=== PATIENT | male | born 1930 | race Caucasian/White ===

== ENCOUNTER 2017-07-30 23:25 | Inpatient (IN) | payer MEDICAID, OTHER ==
--- NOTE | 2017-07-30 23:53 | ED PDOC ---
Arrival/HPI - General Time Seen by Provider: 07/30/17 23:30 Historian: Patient - History of Present Illness Narrative History of Present Illness (Text): 07/30/17 23:37 An 87 year old male, whose past medical history includes dementia, recent hip fracture, renal insufficiency, is brought into the emergency department via EMS with complaint of chest pain intermittently throughout the day, becoming briefly unresponsive this evening.Pt. is on Lovenox. The ambulance was called and transported patient to emergency room. Patient was seen immediately upon arrival. ROS/ HPI limited due to acuity of patient's condition. Time/Duration: Prior to Arrival Symptom Onset: Sudden Symptom Course: Unchanged Activities at Onset: Rest, Light Context: Home Past Medical History - Provider Review Nursing Documentation Reviewed: Yes - Infectious Disease Hx of Infectious Diseases: None Family/Social History - Physician Review Nursing Documentation Reviewed: Yes Family/Social History: No Known Family HX Allergies/Home Meds Allergies/Adverse Reactions: Allergies No Known Allergies Allergy (Verified 07/30/17 23:30) Home Medications: Home Meds Medication Instructions Recorded Confirmed B Complex W-C No.20/Folic Acid 1 cap PO DAILY 07/30/17 07/30/17 [Nephrocaps Softgel] Enoxaparin [Lovenox] 30 mg SC DAILY 07/30/17 07/30/17 Ergocalciferol [Drisdol 50,000 1.25 mg PO QWK 07/30/17 07/30/17 Intl Units Cap] Sodium Bicarbonate [Sodium 325 mg PO BID 07/30/17 07/30/17 Bicarbonate] amLODIPine [Norvasc] 5 mg PO DAILY 07/30/17 07/30/17 Review of Systems - Physician Review All systems were reviewed & negative as marked: Yes - Review of Systems Systems not reviewed;Unavailable: Acuity of Condition Cardiovascular: Chest Pain Physical Exam Vital Signs Reviewed: Yes Vital Signs Temp Pulse Resp BP Pulse Ox 07/31/17 02:37 94.5 F L 98 H 12 107/43 L 100 07/31/17 01:52 105 H 12 92/48 L 100 07/31/17 00:44 91 H 20 107/47 L 99 07/31/17 00:00 99 H 20 102/59 L 100 07/30/17 23:52 94 H 20 89/33 L 97 07/30/17 23:44 96 H 18 90/42 L 93 L 07/30/17 23:34 91.7 F L 98 H 18 162/94 H 94 L Temperature: Hypothermic Blood Pressure: Hypertensive Pulse: Tachycardic Respiratory Rate: Normal Pain Distress: None Mental Status: Positive for: other (Patient is somnolent, but arousable. ) - Systems Exam Head: Present: Atraumatic, Normocephalic Pupils: Present: PERRL Extroacular Muscles: Present: EOMI Conjunctiva: Present: Normal Ears: Present: NORMAL TM Mouth: Present: Dry Pharnyx: Present: Normal Neck: Present: Normal Range of Motion Respiratory/Chest: Present: Rhonchi (Rhonchi bilaterally. ) Cardiovascular: Present: Irregular Rhythm (Irregularly irregular. ) Abdomen: No: Tenderness, Distention, Peritoneal Signs Back: Present: Normal Inspection Upper Extremity: Present: Normal Inspection. No: Cyanosis, Edema Lower Extremity: Present: Normal Inspection. No: Edema Neurological: Present: GCS=15, CN II-XII Intact, Speech Normal, Motor Func Grossly Intact, Normal Sensory Function Skin: Present: Warm, Dry, Normal Color. No: Rashes Psychiatric: Present: Lethargic Medical Decision Making ED Course and Treatment: 07/30/17 23:56 Impression: An 87 year old male is brought into the emergency department via EMS for complaint of intermittent chest pain today and becoming unresponsive this evening. Plan: -- EKG -- Head CT -- Chest X-ray -- Labs -- Urine/ Blood Culture -- Urinalysis -- Lactated Ringer's -- Reassess and disposition Progress Notes: EKG: Ordered, reviewed, and independently interpreted the EKG. Rate : 98 BPM Rhythm : Atrial Fibrillation Interpretation : Lateral ST-T changes. XR Chest, 1 View Dictated and Authenticated by: Chauncey Duran MD 07/31/2017 12:00 AM Eastern Time ([place] & [place]) IMPRESSION: 1. Probable mild pulmonary vascular congestion. Clinical correlation is needed. 07/31/17 01:34: Called to bedside. Patient became bradypneic and pulseless. CPR started. Patient was intubated by myself emergently. A single does epinephrine was administered with resumption of heart rate pulse instantaneously. Patient was sedated as he became agitated. Vital signs stable. PROCEDURE: INTUBATION Performed by the emergency provider Time: 1:29 AM Consent: Discussion of the risks, benefits, and alternatives to the procedure, along with informed consent was precluded by the urgency of the procedure and the patient condition. Timeout: A timeout to verify the correct patient, procedure, and site was performed. Indication: Cardiopulmonary Arrest. Pre-oxygenation: [id number] Medications: See MAR for details. ETT Size: 8.0 Confirmation: Cords directly visualized as tube passed, good bilateral breath sounds, positive CO2 detector color change, tube fogging, adequate chest rise, improving pulse oximetry reading, improved skin color, and absence of gastric sounds,. ETT Secured: The cuff was inflated and the tube was secured appropriately at a distance of 22 cm at the lip. Post-Procedure: There were no immediate complications. CXR Confirmation: Yes 07/31/17 01:53: Case discussed with Dr. Guzman. Will admit patient to ICU. 07/31/17 02:30: Chest X-ray read and interpreted by me shows ETT tube above the ethel. Increased pulmonary markings and ? right lower lobe infiltrate. CT Head Without Intravenous Contrast Dictated and Authenticated by: Chauncey Duran MD 07/31/2017 3:39 AM Eastern Time ([place] & [place]) IMPRESSION: 1. 1.7 x 2.5 x 2.7 cm hemorrhage or hyperdense mass at level of third ventricle. Recommend MRI. 2. Nonspecific white matter changes. Acute infarction may be CT occult within first 24 hours. If a focal deficit persists, consider followup CT or MRI for further evaluation. 3. Incidental/non-acute findings are described above. 07/31/17 04:03: Original CT results were erroneous. Call from [facility] about a change in CT reading. This was conveyed to the bakery products checker, Dr. Guzman. Patient is currently in ICU. - Lab Interpretations Lab Results: 07/30/17 23:30 07/30/17 23:30 Lab Results 07/31/17 01:08: pCO2 44, pO2 269.0 H, HCO3 21.6, ABG pH 7.30 L, ABG Total CO2 23.0, ABG O2 Saturation 100.2 H, ABG O2 Content 10.9 L, ABG Base Excess -4.5 L, ABG Hemoglobin 7.5 L, ABG Carboxyhemoglobin 2.9 H, POC ABG HHb (Measured) -0.2 L , ABG Methemoglobin 0.4, ABG O2 Capacity 10.9 L, Hgb O2 Saturation 96.9, FiO2 100.0 07/30/17 23:30: Sodium 137, Chloride 105, Potassium 4.4, Carbon Dioxide 21, Anion Gap 15, BUN 46 H, Creatinine 2.8 H, Est GFR ( Amer) 26, Est GFR ( Non-Af Amer) 21, Random Glucose 230 H, Calcium 8.5, Phosphorus 4.9 H, Magnesium 2.1, Total Bilirubin 0.4, AST 40, ALT 39, Alkaline Phosphatase 251 H, Lactate Dehydrogenase 701 H, Total Creatine Kinase 78, Troponin I 0.04, NT-Pro-B Natriuret Pep 1570 H, Total Protein 6.2, Albumin 3.2, Globulin 3.0, Albumin/ Globulin Ratio 1.0 L 07/30/17 23:30: pO2 41, VBG pH 7.21 L, VBG pCO2 55.0, VBG HCO3 22.0, VBG Total CO2 23.7, VBG O2 Sat (Calc) 79.7 H, VBG Base Excess -6.4 L, VBG Potassium 4.5, Sodium 136.0, Chloride 107.0, Glucose 243 H, Lactate 1.8, FiO2 21.0, Venous Blood Potassium 4.5 07/30/17 23:30: PT 12.4, INR 1.09 H, APTT 37.2 H 07/30/17 23:30: WBC 7.5, RBC 3.32 L, Hgb 8.7 L, Hct 28.0 L, MCV 84.3, MCH 26.2, MCHC 31.1, RDW 18.7 H, Plt Count 351, MPV 10.0, Gran % 60.3, Lymph % (Auto) 29.4 , [place] % (Auto) 9.4 H, Eos % (Auto) 0.8 L, Baso % (Auto) 0.1, Gran # 4.50, Lymph # (Auto) 2.2, [place] # (Auto) 0.7 H, Eos # (Auto) 0.1, Baso # (Auto) 0.01 I have reviewed the lab results: Yes - RAD Interpretation Radiology Orders: 07/30/17 23:42 CHEST PORTABLE [RAD] Stat 07/30/17 23:43 HEAD W/O CONTRAST [CT] Stat 07/31/17 01:39 CHEST PORTABLE [RAD] Stat - EKG Interpretation Interpreted by ED Physician: Yes Type: 12 lead EKG - Medication Orders Current Medication Orders: Acetaminophen (Tylenol 325mg Tab) 650 mg PO Q4 PRN PRN Reason: Fever >100.4 F Albuterol/Ipratropium (Duoneb 3 Mg/0.5 Mg (3 Ml) Ud) 3 ml IH [id number] JAIMIE NOREPINEPHRINE BIT/0.9 % NACL (Levophed 4 Mg/ 250 Ml Ns Premixed) 4 mg in 250 mls @ 15 mls/hr IV .[id number] PRN; Protocol; 4 MCG/MIN PRN Reason: TITRATE PER MD ORDER Last Admin: 07/31/17 02:04 Dose: 15 mls/hr eMAR Start Stop Document 07/31/17 02:04 AD (Rec: 07/31/17 02:05 AD [id number]) Intravenous Solution Start Date 07/31/17 Start Time 02:05 Propofol (Diprivan) 1,000 mg in 100 mls @ 2.381 mls/hr IV .Q24H PRN; Protocol; 5 MCG/KG/MIN PRN Reason: TITRATE PER MD ORDER Piperacillin Sod/Tazobactam Sod (Zosyn 2.25 Gm In 0.9% 100 Ml) 2.25 gm in 100 mls @ 100 mls/hr IVPB Q6 JAIMIE PRN Reason: Protocol Stop: 07/31/17 06:59 Vancomycin HCl (Vancomycin 1gm) 1 gm in 250 mls @ 167 mls/hr IVPB DAILY JAIMIE PRN Reason: Protocol Sodium Chloride (Sodium Chloride 0.9%) 1,000 mls @ 60 mls/hr IV .[id number] JAIMIE Insulin Human Lispro (Humalog Low) 0 units SC Q6H JAIMIE PRN Reason: Protocol Pantoprazole Sodium (Protonix Inj) 40 mg IVP DAILY JAIMIE Discontinued Medications Lactated Ringer's 2,380 ml/ IV (SUPPLIES) 2,380 mls @ 4,762.74 mls/hr IV ONCE ONE PRN Reason: 60 ML/KG/HR Stop: 07/30/17 23:52 Last Admin: 07/31/17 00:02 Dose: 4,762.74 mls/hr eMAR Start Stop Document 07/31/17 00:02 AD (Rec: 07/31/17 00:02 AD [id number]) Intravenous Solution Start Date 07/31/17 Start Time 00:02 Ceftriaxone Sodium (Rocephin 1 Gram Ivpb) 1 gm in 100 mls @ 200 mls/hr IV ONCE STA PRN Reason: Protocol Stop: 07/31/17 02:16 Last Admin: 07/31/17 02:12 Dose: 200 mls/hr eMAR Start Stop Document 07/31/17 02:12 AD (Rec: 07/31/17 02:12 AD [id number]) Intravenous Solution Start Date 07/31/17 Start Time 02:12 Azithromycin (Zithromax 500mg In Ns) 500 mg in 250 mls @ 166.667 mls/hr IV STAT STA PRN Reason: Protocol Stop: 07/31/17 03:16 - Scribe Statement The provider has reviewed the documentation as recorded by the Jessica Orr Provider Scribe Attestation: All medical record entries made by the Scribe were at my direction and personally dictated by me. I have reviewed the chart and agree that the record accurately reflects my personal performance of the history, physical exam, medical decision making, and the department course for this patient. I have also personally directed, reviewed, and agree with the discharge instructions and disposition. Disposition/Present on Arrival - Present on Arrival Any Indicators Present on Arrival: No History of DVT/PE: No History of Uncontrolled Diabetes: No Urinary Catheter: No History of Decub. Ulcer: No History Surgical Site Infection Following: None - Disposition Have Diagnosis and Disposition been Completed?: Yes Diagnosis: Chest pain, Hypothermia, Sepsis, Hypotension Disposition: HOSPITALIZED Disposition Time: 01:45 Patient Plan: Admission Patient Problems: Current Active Problems Problem Status Onset Chest pain Acute Hypotension Acute Hypothermia Acute Sepsis Acute Condition: GUARDED
--- NOTE | 2017-07-31 | RAD ---
EXAM: XR Chest, 1 View CLINICAL HISTORY: 87 years old, male; Signs and symptoms; Shortness of breath; Additional info: Sepsis patient TECHNIQUE: Frontal view of the chest. COMPARISON: No relevant prior studies available. FINDINGS: Limitations: Rotation - mild. Radiographic technique - mild. Lungs: Hazy reticular interstitial opacities. No consolidation. Pleural space: Small bilateral pleural effusions. No pneumothorax. Heart: Borderline cardiomegaly. Mediastinum: Prominence of central pulmonary vasculature. Bones/joints: No acute fracture. Tubes, lines and devices: Leads overlying chest. IMPRESSION: 1. Probable mild pulmonary vascular congestion. Clinical correlation is needed.
[2017-07-31 00:10] LABS: BASO # 0.01 K/mm3 (0.0-2.0); BASO % 0.1 % (0.0-3.0); EOS # 0.1 (0.0-0.7); EOS % 0.8 % (1.5-5.0); GRAN # 4.5 (1.4-6.5); GRAN % 60.3 % (50.0-68.0); HEMOGLOBIN 8.7 g/dL (14.0-18.0); LYMPH # 2.2 (1.2-3.4); LYMPH % 29.4 % (22.0-35.0); MEAN CELL VOLUME 84.3 fl (80.0-105.0); MEAN CORPUSCULAR HEMOGLOBIN 26.2 pg (25.0-35.0); MEAN CORPUSCULAR HGB CONC 31.1 g/dl (31.0-37.0); MONO # 0.7 (0.1-0.6); MONO % 9.4 % (1.0-6.0); RBC 3.32 10^6/uL (3.5-6.1); RED CELL DISTRIBUTION WIDTH 18.7 % (11.5-14.5); WHITE BLOOD COUNT 7.5 10^3/ul (4.5-11.0)
[2017-07-31 00:24] LABS: INR 1.09 (0.93-1.08); PARTIAL THROMBOPLASTIN TIME 37.2 Seconds (25.1-36.5); PROTHROMBIN TIME 12.4 SECONDS (9.4-12.5)
[2017-07-31 00:26] LABS: VENOUS BLOOD GAS BASE EXCESS -6.4 mmol/L (0.0-2.0); VENOUS BLOOD GAS PO2 41 mm/Hg (30-55); VENOUS BLOOD PH 7.21 (7.32-7.43)
[2017-07-31 00:36] LABS: ALBUMIN 3.2 g/dL (3.0-4.8); CALCIUM 8.5 mg/dL (8.4-10.5)
[2017-07-31 00:46] LABS: TROPONIN I 0.04 ng/mL
[2017-07-31 01:11] LABS: ARTERIAL BLOOD GAS HCO3 21.6 mmol/L (21-28); ARTERIAL BLOOD GAS HEMOGLOBIN 7.5 g/dL (11.7-17.4); ARTERIAL BLOOD GAS O2 CAPACITY 10.9 mL/dl (16-24); ARTERIAL BLOOD GAS O2 CONTENT 10.9 ML/dl (15-23); ARTERIAL BLOOD GAS O2 SAT 100.2 % (95-98); ARTERIAL BLOOD GAS PCO2 44 mm/Hg (35-45)
[2017-07-31] MEDS ORDERED: Propofol 10 mg/ml 1,000 MG/100 ML VIAL ONE (01:32)
[2017-07-31] MEDS ORDERED: cefTRIAXone 1 gm 1 GM/100 ML BAG IV STA (01:47)
--- NOTE | 2017-07-31 01:50 | CP.PCM.CON ---
History of Present Illness - History of Present Illness History of Present Illness: Please note history is limited and from family at bedside 87yo male PMHx HTN, Kidney disease? ORIF 3 weeks ago, dementia brought in by EMS after an episode of unresponsiveness and cardiac arrest. Patient was complaining of chest pain intermittently and around 10:30pm patient began to feel short of breath and "passed out." As per family, he "dropped to the floor" but they are unsure if he hit his head. They denied noticing any bowel/bladder incontinence, tremulousness, and biting of the tongue. When family called 911 they were told to start chest compressions which they did. When EMS arrived, as per family, patient was arousable and transported to [facility] ED. In the ER patient became bradypneic and pulseless. CPR started and patient was given 1 dose of epi and ROSC was achieved. Patient was then intubated and placed on the vent and sedated. Of note patient had a recent fall 1 month ago and fractured his R hip for which he was admitted to [facility] and had and ORIF. Patient was on 30mg lovenox at home. As per family, at baseline patient is oriented with periods of confusion- especially at night. Since discharge from [facility] he was unable to move and had to be carried everywhere. During patient's stay at [facility] he was noted to have worsening kidney function but dialysis was advised against due to patient's age and comorbidities. PMD: None PMHx: HTN, kidney dz? 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[place]; moved to [place] from [place] 3 years ago ROS: unobtainable secondary to patient condition Review of Systems - Review of Systems Systems not reviewed;Unavailable: Intubated Past Patient History - Infectious Disease Hx of Infectious Diseases: None - Past Social History Smoking Status: Never Smoked - CARDIAC Hx Cardiac Disorders: Yes Hx Hypertension: Yes (takes Norvasc) - PULMONARY Hx Respiratory Disorders: No - NEUROLOGICAL Hx Neurological Disorder: Yes Hx Dementia: Yes - HEENT Hx HEENT Problems: No - RENAL Hx Chronic Kidney Disease: Yes Other/Comment: kidney disease - ENDOCRINE/METABOLIC Hx Endocrine Disorders: No - HEMATOLOGICAL/ONCOLOGICAL Hx Blood Disorders: No - INTEGUMENTARY Hx Dermatological Problems: No - MUSCULOSKELETAL/RHEUMATOLOGICAL Hx Musculoskeletal Disorders: No - GASTROINTESTINAL Hx Gastrointestinal Disorders: No - GENITOURINARY/GYNECOLOGICAL Hx Genitourinary Disorders: No - PSYCHIATRIC Hx Psychophysiologic Disorder: No Hx Substance Use: No - SURGICAL HISTORY Hx Surgeries: Yes Hx Open Reduction Internal Fixation: Yes (rt hip) - ANESTHESIA Hx Anesthesia: Yes Hx Anesthesia Reactions: No Hx Malignant Hyperthermia: No Meds Allergies/Adverse Reactions: Allergies Allergy/AdvReac Type Severity Reaction Status Date / Time No Known Allergies Allergy Verified 07/30/17 23:30 - Medications Medications: Current Medications Ceftriaxone Sodium (Rocephin 1 Gram Ivpb) 1 gm in 100 mls @ 200 mls/hr IV ONCE STA PRN Reason: Protocol Stop: 07/31/17 02:16 Azithromycin (Zithromax 500mg In Ns) 500 mg in 250 mls @ 166.667 mls/hr IV STAT STA PRN Reason: Protocol Stop: 07/31/17 03:16 Physical Exam - Constitutional Appears: Chronically Ill - Head Exam Head Exam: ATRAUMATIC, NORMAL INSPECTION, NORMOCEPHALIC - Eye Exam Eye Exam: PERRL. absent: Conjunctival injection, Scleral icterus - ENT Exam ENT Exam: Mucous Membranes Moist Additional comments: ET tube in place - Neck Exam Neck exam: Negative for: Lymphadenopathy - Respiratory Exam Respiratory Exam: Rales (b/l), Rhonchi (b/l), Respiratory Distress (intubated on vent (100, 5, 12, 500)). absent: Accessory Muscle Use, Clear to Auscultation Bilateral, Wheezes - Cardiovascular Exam Cardiovascular Exam: Tachycardia, Irregular Rhythm, +S1, +S2. absent: Systolic Murmur - GI/Abdominal Exam GI & Abdominal Exam: Normal Bowel Sounds, Soft. absent: Distended, Firm - Rectal Exam Rectal Exam: Deferred - Extremities Exam Extremities exam: Positive for: normal capillary refill, pedal edema (+1 on left and +2 on right), pedal pulses present - Neurological Exam Additional comments: sedated on diprivan - Skin Skin Exam: Dry, Intact Results - Vital Signs Recent Vital Signs: Last Vital Signs Temp 91.7 F L 07/30/17 23:34 Pulse 91 H 07/31/17 00:44 Resp 20 07/31/17 00:44 BP 107/47 L 07/31/17 00:44 Pulse Ox 99 07/31/17 00:44 - Labs Result Diagrams: 07/30/17 23:30 07/30/17 23:30 Labs: Laboratory Results - last 24 hr 07/30/17 07/30/17 07/30/17 23:30 23:30 23:30 WBC 7.5 RBC 3.32 L Hgb 8.7 L Hct 28.0 L MCV 84.3 MCH 26.2 MCHC 31.1 RDW 18.7 H Plt Count 351 MPV 10.0 Gran % 60.3 Lymph % (Auto) 29.4 [place] % (Auto) 9.4 H Eos % (Auto) 0.8 L Baso % (Auto) 0.1 Gran # 4.50 Lymph # (Auto) 2.2 [place] # (Auto) 0.7 H Eos # (Auto) 0.1 Baso # (Auto) 0.01 PT 12.4 INR 1.09 H APTT 37.2 H pCO2 pO2 41 HCO3 ABG pH ABG Total CO2 ABG O2 Saturation ABG O2 Content ABG Base Excess ABG Hemoglobin ABG Carboxyhemoglobin POC ABG HHb (Measured) ABG Methemoglobin ABG O2 Capacity VBG pH 7.21 L VBG pCO2 55.0 VBG HCO3 22.0 VBG Total CO2 23.7 VBG O2 Sat (Calc) 79.7 H VBG Base Excess -6.4 L VBG Potassium 4.5 Hgb O2 Saturation Sodium 136.0 Chloride 107.0 Glucose 243 H Lactate 1.8 FiO2 21.0 Potassium Carbon Dioxide Anion Gap BUN Creatinine Est GFR ( Amer) Est GFR (Non-Af Amer) Random Glucose Calcium Phosphorus Magnesium Total Bilirubin AST ALT Alkaline Phosphatase Lactate Dehydrogenase Total Creatine Kinase Troponin I NT-Pro-B Natriuret Pep Total Protein Albumin Globulin Albumin/Globulin Ratio Venous Blood Potassium 4.5 07/30/17 07/31/17 23:30 01:08 WBC RBC Hgb Hct MCV MCH MCHC RDW Plt Count MPV Gran % Lymph % (Auto) [place] % (Auto) Eos % (Auto) Baso % (Auto) Gran # Lymph # (Auto) [place] # (Auto) Eos # (Auto) Baso # (Auto) PT INR APTT pCO2 44 pO2 269.0 H HCO3 21.6 ABG pH 7.30 L ABG Total CO2 23.0 ABG O2 Saturation 100.2 H ABG O2 Content 10.9 L ABG Base Excess -4.5 L ABG Hemoglobin 7.5 L ABG Carboxyhemoglobin 2.9 H POC ABG HHb (Measured) -0.2 L ABG Methemoglobin 0.4 ABG O2 Capacity 10.9 L VBG pH VBG pCO2 VBG HCO3 VBG Total CO2 VBG O2 Sat (Calc) VBG Base Excess VBG Potassium Hgb O2 Saturation 96.9 Sodium 137 Chloride 105 Glucose Lactate FiO2 100.0 Potassium 4.4 Carbon Dioxide 21 Anion Gap 15 BUN 46 H Creatinine 2.8 H Est GFR ( Amer) 26 Est GFR (Non-Af Amer) 21 Random Glucose 230 H Calcium 8.5 Phosphorus 4.9 H Magnesium 2.1 Total Bilirubin 0.4 AST 40 ALT 39 Alkaline Phosphatase 251 H Lactate Dehydrogenase 701 H Total Creatine Kinase 78 Troponin I 0.04 NT-Pro-B Natriuret Pep 1570 H Total Protein 6.2 Albumin 3.2 Globulin 3.0 Albumin/Globulin Ratio 1.0 L Venous Blood Potassium Assessment & Plan - Assessment and Plan (Free Text) Assessment: 87yo male PMHx HTN, Kidney disease? ORIF 3 weeks ago, dementia brought in by EMS after an episode of unresponsiveness s/p cardiac arrest in the ER. Patient admitted to MICU Plan: Neuro -baseline dementia -sedated on propofol gtt -f/u head CT -f/u UDS -HoB above 30 degrees -Aspiration precautions Cardio -s/p cardiac arrest in the field and ED -EKG on admission showed Afib with RVR -f/u trop x 2 -Levophed gtt -maintain MAP > 65mmHg -f/u lipid panel and thyroid studies -f/u Echo -Cardio consulted Pulm -intubated on vent (100, 5, 12, 500) -Duoneb 3ml q6 -f/u AM CXR and ABG -f/u VQ scan -Maintain spO2 above 90% -extensive hx of tobacco abuse GI -no acute issues Nephro -elevated BUN/Cr on admission 46/2.8 -NS @ 60 -f/u renal u/s -monitor electrolytes -Monitor strict Is and Os -Nephro consulted ID -f/u pancultures and procal -coverage for HCAP Vanc and Zosyn -ID consulted Endo -Accucheck -RISS low -f/u HgbA1c -maintain euglycemia GI ppx: Protonix DVT ppx: will start VTE ppx after head CT Diet: NPO Discussed with Dr. Megan Ferreira PGY2
[2017-07-31] MEDS ORDERED: Propofol 10 mg/ml 1,000 MG/100 ML VIAL IV PRN (02:04)
[2017-07-31] MEDS: NOREPINEPHRINE BIT/0.9 % NACL 4 MG/250 ML BAG IV PRN ×2 (02:04→15:40)
[2017-07-31] MEDS: Insulin Lispro (humaLOG) LOW Coverage SC SCH ×4 (03:00→22:00)
[2017-07-31] MEDS ORDERED: Sodium Chloride 0.9% 1,000 ML IV SCH (03:15)
--- NOTE | 2017-07-31 03:36 | CT ---
EXAM: CT Head Without Intravenous Contrast CLINICAL HISTORY: 87 years old, male; Signs and symptoms; Syncope and collapse TECHNIQUE: Axial computed tomography images of the head/brain without intravenous contrast. All CT scans at this facility use one or more dose reduction techniques, viz.: automated exposure control; ma/kV adjustment per patient size (including targeted exams where dose is matched to indication; i.e. head); or iterative reconstruction technique. Coronal and sagittal reformatted images were created and reviewed. COMPARISON: No relevant prior studies available. FINDINGS: Brain: Mild atrophy. No intracranial hemorrhage. No mass. Few scattered foci of decreased attenuation within periventricular/subcortical white matter. No definite edema. Ventricles: No hydrocephalus. Bones/joints: No acute fracture. Calvarial thickening. Soft tissues: Unremarkable. Vasculature: Mild atherosclerotic disease of intracranial arteries. Sinuses: No acute sinusitis. Mastoid air cells: No mastoid effusion. Orbits: Unremarkable as visualized. IMPRESSION: 1. Nonspecific white matter changes. Acute infarction may be CT occult within first 24 hours. If a focal deficit persists, consider followup CT or MRI for further evaluation. 2. Incidental/non-acute findings are described above.
--- NOTE | 2017-07-31 06:28 | PCM.PROC ---
Procedures Attestation:: I certify that I have explained the specified Operation(s) or Procedure(s), risks, benefits and reasonable alternatives to the Patient and/or other person responsible. The opportunity was given to ask questions and all questions answered - Central Line Placement Right Internal Jugular Triple Lumen Catheter Aseptic technique was employed throughout the procedure: Hand Hygiene done prior to procedure, Full sterile barriers (mask, hair cover, sterile gown, sterile gloves), Full body sterile drape, Chloraprep Antiseptic: 30 second prep for IJ or SC sites CVP Time Out Performed: Yes Pt. Placed on Pulse Ox Monitor: Yes Central Line Prep: Chlorhexidine-Alcohol Combination Local Anesthesia Used: Lidocaine 1% Amount of Anesthesia Used (mls): 10 Ultrasound Used for Placement: Yes Central Line Lumen Inserted: triple Central Line Length: 16 cm Post Procedure: Sutured in Place, Good Blood Return, All Ports Aspirated, Flushed, Capped, Sterile Dressing Applied Secured by: Securement device Post procedure dressing: Chlorhexidine disc (Biopatch) Post Procedure X-Ray: Yes Patient Tolerated Procedure: Well Immediate Complications: None (under direct supervision)
[2017-07-31 06:33] LABS: ARTERIAL BLOOD GAS HCO3 22.7 mmol/L (21-28); ARTERIAL BLOOD GAS O2 SAT 100.1 % (95-98); ARTERIAL BLOOD GAS PCO2 44 mm/Hg (35-45); ARTERIAL BLOOD GAS PH 7.32 (7.35-7.45); ARTERIAL BLOOD GAS TCO2 24.1 mmol.L (22-28)
[2017-07-31 07:07] LABS: ALBUMIN 2.7 g/dL (3.0-4.8); CALCIUM 7.9 mg/dL (8.4-10.5)
[2017-07-31 07:21] LABS: TROPONIN I 0.16 ng/mL
[2017-07-31 07:23] LABS: FREE T4 1.43 ng/dL (0.78-2.19)
[2017-07-31] MEDS: Albuterol-Ipratrop 3 mg / 0.5 (3 ml) UD IH SCH ×3 (07:41→20:37)
[2017-07-31] MEDS: Piperacillin/Tazobact 2.25gm 2.25 GM/100 ML BAG IVPB SCH ×2 (07:59→11:26)
[2017-07-31] MEDS: Vancomycin 1gm in NS 250ml 1 GM/250 ML BAG IVPB SCH ×2 (08:03→10:56)
[2017-07-31] MEDS: Azithromycin 500MG/NS 250ml 500 MG/250 ML BAG IV STA ×2 (08:31→09:25)
[2017-07-31 08:43] LABS: BASO # 0.01 K/mm3 (0.0-2.0); BASO % 0.2 % (0.0-3.0); EOS # 0.1 (0.0-0.7); GRAN # 3.69 (1.4-6.5); GRAN % 73.4 % (50.0-68.0); HEMOGLOBIN 7.6 g/dL (14.0-18.0); LYMPH # 0.8 (1.2-3.4); LYMPH % 16.5 % (22.0-35.0); MEAN CELL VOLUME 84.2 fl (80.0-105.0); MEAN CORPUSCULAR HEMOGLOBIN 26.8 pg (25.0-35.0); MEAN CORPUSCULAR HGB CONC 31.8 g/dl (31.0-37.0); MEAN PLATELET VOLUME 10.5 fl (7.0-11.0); MONO # 0.5 (0.1-0.6); MONO % 8.9 % (1.0-6.0); RBC 2.84 10^6/uL (3.5-6.1); RED CELL DISTRIBUTION WIDTH 18.8 % (11.5-14.5)
--- NOTE | 2017-07-31 08:44 | CP.CCUPN ---
<Boyd Huggins - Last Filed: 07/31/17 12:36> CCU Subjective - Physician Review Subjective (Free Text): ICU progress note: Pt seen and examined at bedside. Patient was intubated, sedated on propofol, but is currently extubated and off sedation. On levophed drip. 12 Point ROS limited due to dementia. CCU Objective - Vital Signs / Intake & Output Vital Signs (Last 4 hours): Vital Signs Temp Pulse Resp BP Pulse Ox 07/31/17 08:10 71 100 07/31/17 08:00 85 119/62 100 07/31/17 07:55 78 94/51 L 100 07/31/17 07:50 75 100 07/31/17 07:45 82 106/44 L 100 07/31/17 07:40 78 100 07/31/17 07:30 70 102/45 L 100 07/31/17 07:20 75 100 07/31/17 07:15 71 97/48 L 100 07/31/17 07:10 76 100 07/31/17 07:04 80 17 100 07/31/17 07:00 67 15 91/46 L 100 07/31/17 06:50 76 15 100 07/31/17 06:45 95.6 F L 70 17 108/48 L 100 07/31/17 06:40 73 14 100 07/31/17 06:30 77 16 97/43 L 100 07/31/17 06:20 79 19 100 07/31/17 06:15 77 17 93/45 L 100 07/31/17 06:11 71 20 98/46 L 100 07/31/17 06:10 71 15 100 07/31/17 06:05 81 18 99 07/31/17 06:00 75 07/31/17 05:10 100 07/31/17 05:03 100 07/31/17 04:50 76 17 100 07/31/17 04:45 94 H 16 95/47 L Intake and Output (Last 8hrs): Intake & Output 07/30/17 07/31/17 07/31/17 22:59 06:59 14:59 Intake Total 2100 Output Total 0 0 Balance 0 2100 Intake: IV 2100 Left Forearm 2000 Right Internal Jugular 100 Output: Urine 0 0 Urethral (Yan) 0 0 Stool 0 Other: Voiding Method Indwelling Catheter # Bowel Movements 0 - Physical Exam Head: Positive for: Atraumatic, Normocephalic Pupils: Positive for: PERRL Conjunctiva: Positive for: Normal Mouth: Positive for: Moist Mucous Membranes Respiratory/Chest: Positive for: Good Air Exchange, Rhonchi (Rhonchi bilaterally. ) Cardiovascular: Positive for: Irregular Rhythm (Irregularly irregular. ) Abdomen: Negative for: Tenderness, Distention, Peritoneal Signs Upper Extremity: Positive for: Normal Inspection. Negative for: Cyanosis, Edema Lower Extremity: Positive for: Normal Inspection. Negative for: Edema Neurological: Positive for: CN II-XII Intact Skin: Positive for: Warm, Dry, Normal Color. Negative for: Rashes Psychiatric: Positive for: Lethargic - Medications Active Medications: Active Medications Generic Name Dose Route Start Last Admin Trade Name Freq PRN Reason Stop Dose Admin Acetaminophen 650 mg 07/31/17 02:36 Tylenol 325mg Tab PO Q4 PRN Fever >100.4 F Albuterol/Ipratropium 3 ml 07/31/17 08:00 07/31/17 07:41 Duoneb 3 Mg/0.5 Mg (3 Ml) Ud IH 3 ml [id number] JAIMIE Administration NOREPINEPHRINE BIT/0.9 % NACL 4 mg in 250 mls @ 15 mls/hr 07/31/17 01:58 02:04 Levophed 4 Mg/ 250 Ml Ns Premixed IV 15 mls/hr .[id number] PRN Administration TITRATE PER MD ORDER Protocol 4 MCG/MIN Propofol 1,000 mg in 100 mls @ 2.381 mls/hr 07/31/17 02:04 07/31/17 08:03 Diprivan IV 15 mcg/kg/min .Q24H PRN 7.144 mls/hr TITRATE PER MD ORDER Administration Protocol 5 MCG/KG/MIN Vancomycin HCl 1 gm in 250 mls @ 167 mls/hr 07/31/17 02:54 07/31/17 08:03 Vancomycin 1gm IVPB 167 mls/hr DAILY JAIMIE Administration Protocol Sodium Chloride 1,000 mls @ 60 mls/hr 07/31/17 03:15 07/31/17 08:04 Sodium Chloride 0.9% IV 60 mls/hr .[id number] JAIMIE Administration Insulin Human Lispro 0 units 07/31/17 03:00 07/31/17 03:00 Humalog Low SC Not Given Q6H [facility] Protocol Pantoprazole Sodium 40 mg 07/31/17 10:00 Protonix Inj IVP DAILY JAIMIE - Patient Studies Lab Studies: Lab Studies 07/31/17 07/31/17 07/31/17 Range/Units 07:48 06:30 06:15 pCO2 44 (35-45) mm/Hg pO2 348.0 H (80-100) mm/Hg HCO3 22.7 (21-28) mmol/L ABG pH 7.32 L (7.35-7.45) ABG Total CO2 24.1 (22-28) mmol.L ABG O2 Saturation 100.1 H (95-98) % ABG O2 Content 12.0 L (15-23) ML/dl ABG Base Excess -3.2 L (-2.0-3.0) mmol/L ABG Hemoglobin 8.0 L (11.7-17.4) g/dL ABG Carboxyhemoglobin 1.7 H (0.5-1.5) % POC ABG HHb (Measured) -0.1 L (0-5) % ABG Methemoglobin 0.6 (0.0-3.0) % ABG O2 Capacity 12.0 L (16-24) mL/dl Hgb O2 Saturation 97.8 (95.0-98.0) % FiO2 100.0 % Sodium (132-148) mmol/L Potassium (3.6-5.0) mmol/L Chloride (98-107) mmol/L Carbon Dioxide (21-33) mmol/L Anion Gap (10-20) BUN (7-21) mg/dL Creatinine (0.8-1.5) mg/dl Est GFR ( Amer) Est GFR (Non-Af Amer) POC Glucose (mg/dL) 109 (65-110) mg/dL Random Glucose (70-110) mg/dL Calcium (8.4-10.5) mg/dL Phosphorus (2.5-4.5) mg/dL Magnesium (1.7-2.2) mg/dL Total Bilirubin (0.2-1.3) mg/dL AST (17-59) U/L ALT (7-56) U/L Alkaline Phosphatase (38-126) U/L Troponin I ng/mL Total Protein (5.8-8.3) g/dL Albumin (3.0-4.8) g/dL Globulin gm/dL Albumin/Globulin Ratio (1.1-1.8) Triglycerides (35-160) mg/dL Cholesterol (130-200) mg/dL LDL Cholesterol Direct (0-129) mg/dL HDL Cholesterol (29-60) mg/dL Free T4 1.43 (0.78-2.19) ng/dL TSH 3rd Generation 2.23 (0.46-4.68) mIU/mL 07/31/17 Range/Units 06:15 pCO2 (35-45) mm/Hg pO2 (80-100) mm/Hg HCO3 (21-28) mmol/L ABG pH (7.35-7.45) ABG Total CO2 (22-28) mmol.L ABG O2 Saturation (95-98) % ABG O2 Content (15-23) ML/dl ABG Base Excess (-2.0-3.0) mmol/L ABG Hemoglobin (11.7-17.4) g/dL ABG Carboxyhemoglobin (0.5-1.5) % POC ABG HHb (Measured) (0-5) % ABG Methemoglobin (0.0-3.0) % ABG O2 Capacity (16-24) mL/dl Hgb O2 Saturation (95.0-98.0) % FiO2 % Sodium 139 (132-148) mmol/L Potassium 4.5 (3.6-5.0) mmol/L Chloride 107 (98-107) mmol/L Carbon Dioxide 23 (21-33) mmol/L Anion Gap 14 (10-20) BUN 44 H (7-21) mg/dL Creatinine 2.9 H (0.8-1.5) mg/dl Est GFR ( Amer) 25 Est GFR (Non-Af Amer) 21 POC Glucose (mg/dL) (65-110) mg/dL Random Glucose 128 H (70-110) mg/dL Calcium 7.9 L (8.4-10.5) mg/dL Phosphorus 4.6 H (2.5-4.5) mg/dL Magnesium 1.9 (1.7-2.2) mg/dL Total Bilirubin 0.2 (0.2-1.3) mg/dL AST 35 (17-59) U/L ALT 38 (7-56) U/L Alkaline Phosphatase 204 H (38-126) U/L Troponin I 0.16 H* D ng/mL Total Protein 5.5 L (5.8-8.3) g/dL Albumin 2.7 L (3.0-4.8) g/dL Globulin 2.8 gm/dL Albumin/Globulin Ratio 1.0 L (1.1-1.8) Triglycerides 98 (35-160) mg/dL Cholesterol 118 L (130-200) mg/dL LDL Cholesterol Direct 58 (0-129) mg/dL HDL Cholesterol 36 (29-60) mg/dL Free T4 (0.78-2.19) ng/dL TSH 3rd Generation (0.46-4.68) mIU/mL Laboratory Results - last 24 hr 07/31/17 07/31/17 07/31/17 06:15 06:15 06:30 pCO2 44 pO2 348.0 H HCO3 22.7 ABG pH 7.32 L ABG Total CO2 24.1 ABG O2 Saturation 100.1 H ABG O2 Content 12.0 L ABG Base Excess -3.2 L ABG Hemoglobin 8.0 L ABG Carboxyhemoglobin 1.7 H POC ABG HHb (Measured) -0.1 L ABG Methemoglobin 0.6 ABG O2 Capacity 12.0 L Hgb O2 Saturation 97.8 FiO2 100.0 Sodium 139 Potassium 4.5 Chloride 107 Carbon Dioxide 23 Anion Gap 14 BUN 44 H Creatinine 2.9 H Est GFR ( Amer) 25 Est GFR (Non-Af Amer) 21 POC Glucose (mg/dL) Random Glucose 128 H Calcium 7.9 L Phosphorus 4.6 H Magnesium 1.9 Total Bilirubin 0.2 AST 35 ALT 38 Alkaline Phosphatase 204 H Troponin I 0.16 H* D Total Protein 5.5 L Albumin 2.7 L Globulin 2.8 Albumin/Globulin Ratio 1.0 L Triglycerides 98 Cholesterol 118 L LDL Cholesterol Direct 58 HDL Cholesterol 36 Free T4 1.43 TSH 3rd Generation 2.23 07/31/17 07:48 pCO2 pO2 HCO3 ABG pH ABG Total CO2 ABG O2 Saturation ABG O2 Content ABG Base Excess ABG Hemoglobin ABG Carboxyhemoglobin POC ABG HHb (Measured) ABG Methemoglobin ABG O2 Capacity Hgb O2 Saturation FiO2 Sodium Potassium Chloride Carbon Dioxide Anion Gap BUN Creatinine Est GFR ( Amer) Est GFR (Non-Af Amer) POC Glucose (mg/dL) 109 Random Glucose Calcium Phosphorus Magnesium Total Bilirubin AST ALT Alkaline Phosphatase Troponin I Total Protein Albumin Globulin Albumin/Globulin Ratio Triglycerides Cholesterol LDL Cholesterol Direct HDL Cholesterol Free T4 TSH 3rd Generation Fingerstick Blood Sugar Results: 109 Review of Systems - Review of Systems Systems not reviewed;Unavailable: Dementia Assessment/Plan - Assessment and Plan (Free Text) Assessment: 87yo male PMHx HTN, Kidney disease? ORIF 3 weeks ago, dementia brought in by EMS after an episode of unresponsiveness s/p cardiac arrest in the ED, ROSC achieved after 1 dose of epi and subsequently intubated, sedated and placed on Levophed ggt. Patient currently extubated and on Levophed ggt. Neuro -Hx of dementia -CTH shows 1.7 x 2.5 x 1.7 hemorrhage at level of 3rd vent (patient had a hx of hemorrhagic stroke 3 years ago as per family) -Neuro consulted for recs -Psych consulted for recs regarding possible delirium -HoB above 30 degrees -Aspiration precautions Cardio -EKG on admission showed Afib with RVR -Trop .o4 --> .16 -Levophed gtt -maintain MAP > 65mmHg -f/u Echo pending results -Cardio consulted for recs Pulm -Currently extubated -Duoneb q6 -VQ scan reviewed -Maintain spO2 above 90% GI -NPO -GI ppx Nephro -elevated BUN/Cr on admission 46/2.8 - unknown baseline -NS @ 60 -f/u renal u/s -monitor electrolytes -Monitor strict Is and Os -Nephro consulted ID -Temp 95.6 and no leukocytosis -F/u septic work up -ID consulted- Started on Vanc and Aracelis -Cont to monitor Endo -Blood sugars of 60 -Started on D5 NS @ 100 -F/u Hba1c -RISS low - Accuchecks Q1H -maintain euglycemia blood sugars 140-180 Heme: -H/H of 7.6/ 23.9 - unknown baseline -No active signs of bleeding -Cont to monitor Case and plan was reviewed and discussed in detail with Dr Queen. <Gagandeep Queen - Last Filed: 07/31/17 15:50> CCU Objective - Vital Signs / Intake & Output Vital Signs (Last 4 hours): Vital Signs Pulse Resp BP Pulse Ox 07/31/17 15:00 67 19 95/32 L 94 L 07/31/17 14:45 64 14 87/33 L 89 L 07/31/17 14:30 97/30 L 07/31/17 14:29 68 15 92 L 07/31/17 14:15 99/40 L 07/31/17 14:14 68 17 92 L 07/31/17 14:01 72 17 100/60 94 L 07/31/17 14:00 76 16 89 L 07/31/17 13:45 73 17 103/42 L 89 L 07/31/17 13:43 73 18 108/39 L 93 L 07/31/17 13:31 76 22 58/42 L 95 07/31/17 13:21 77 20 90/54 L 95 07/31/17 13:15 82/27 L 07/31/17 13:14 69 14 95 07/31/17 13:01 75 19 111/40 L 94 L 07/31/17 12:46 73 20 88/54 L 92 L 07/31/17 12:29 80 07/31/17 12:15 80 32 H 89/47 L 95 07/31/17 12:01 80 13 105/41 L 93 L 07/31/17 12:00 89 30 H 94 L 07/31/17 11:57 79 27 H 87/48 L 97 07/31/17 11:46 81 21 62/44 L 85 L 07/31/17 11:45 90 46 H Intake and Output (Last 8hrs): Intake & Output 07/31/17 07/31/17 07/31/17 06:59 14:59 22:59 Intake Total 2181 Output Total 0 0 Balance 0 2181 Intake: IV 2181 Left Forearm 2000 Right Internal Jugular 100 Output: Urine 0 0 Urethral (Yan) 0 0 Stool 0 Other: Voiding Method Indwelling Catheter # Bowel Movements 0 - Medications Active Medications: Active Medications Generic Name Dose Route Start Last Admin Trade Name Freq PRN Reason Stop Dose Admin Acetaminophen 650 mg 07/31/17 02:36 Tylenol 325mg Tab PO Q4 PRN Fever >100.4 F Albuterol/Ipratropium 3 ml 07/31/17 08:00 07/31/17 13:57 Duoneb 3 Mg/0.5 Mg (3 Ml) Ud IH 3 ml [id number] JAIMIE Administration NOREPINEPHRINE BIT/0.9 % NACL 4 mg in 250 mls @ 15 mls/hr 07/31/17 01:58 07:38 Levophed 4 Mg/ 250 Ml Ns Premixed IV 2 mcg/min .[id number] PRN 7.5 mls/hr TITRATE PER MD ORDER Titration Protocol 4 MCG/MIN Propofol 1,000 mg in 100 mls @ 2.381 mls/hr 07/31/17 02:04 07/31/17 09:20 Diprivan IV 0 mcg/kg/min .Q24H PRN 0 mls/hr TITRATE PER MD ORDER Titration Protocol 5 MCG/KG/MIN Meropenem 500 mg/ Sodium 50 mls @ 100 mls/hr 07/31/17 09:00 07/31/17 10:46 Chloride IVPB 08/07/17 09:01 100 mls/hr Q12 JAIMIE Administration Protocol Dexmedetomidine HCl 400 mcg in 100 mls @ 3.969 mls/hr 07/31/17 11:16 14:10 Precedex 400mcg/100ml IV 0.6 mcg/kg/hr .Q24H PRN 11.907 mls/hr Symptoms of alcohol withdrawl Titration Protocol 0.2 MCG/KG/HR Dextrose/Sodium Chloride 1,000 mls @ 100 mls/hr 07/31/17 12:45 07/31/17 12:38 Dextrose 5%/0.9% Ns 1000 Ml IV 100 mls/hr .Q10H JAIMIE Administration Insulin Human Lispro 0 units 07/31/17 03:00 07/31/17 10:55 Humalog Low SC Not Given Q6H JAIMIE Protocol Pantoprazole Sodium 40 mg 07/31/17 10:00 07/31/17 10:47 Protonix Inj IVP 40 mg DAILY JAIMIE Administration - Patient Studies Lab Studies: Lab Studies 07/31/17 07/31/17 07/31/17 Range/Units 13:29 12:28 12:24 WBC (4.5-11.0) 10^3/ul RBC (3.5-6.1) 10^6/uL Hgb (14.0-18.0) g/dL Hct (42.0-52.0) % MCV (80.0-105.0) fl MCH (25.0-35.0) pg MCHC (31.0-37.0) g/dl RDW (11.5-14.5) % Plt Count (120.0-450.0) 10^3/uL MPV (7.0-11.0) fl Gran % (50.0-68.0) % Lymph % (Auto) (22.0-35.0) % [place] % (Auto) (1.0-6.0) % Eos % (Auto) (1.5-5.0) % Baso % (Auto) (0.0-3.0) % Gran # (1.4-6.5) Lymph # (Auto) (1.2-3.4) [place] # (Auto) (0.1-0.6) Eos # (Auto) (0.0-0.7) Baso # (Auto) (0.0-2.0) K/mm3 pCO2 (35-45) mm/Hg pO2 (80-100) mm/Hg HCO3 (21-28) mmol/L ABG pH (7.35-7.45) ABG Total CO2 (22-28) mmol.L ABG O2 Saturation (95-98) % ABG O2 Content (15-23) ML/dl ABG Base Excess (-2.0-3.0) mmol/L ABG Hemoglobin (11.7-17.4) g/dL ABG Carboxyhemoglobin (0.5-1.5) % POC ABG HHb (Measured) (0-5) % ABG Methemoglobin (0.0-3.0) % ABG O2 Capacity (16-24) mL/dl Hgb O2 Saturation (95.0-98.0) % FiO2 % Sodium (132-148) mmol/L Potassium (3.6-5.0) mmol/L Chloride (98-107) mmol/L Carbon Dioxide (21-33) mmol/L Anion Gap (10-20) BUN (7-21) mg/dL Creatinine (0.8-1.5) mg/dl Est GFR ( Amer) Est GFR (Non-Af Amer) POC Glucose (mg/dL) 71 60 L 57 L (65-110) mg/dL Random Glucose (70-110) mg/dL Hemoglobin A1c (4.2-6.5) % Calcium (8.4-10.5) mg/dL Phosphorus (2.5-4.5) mg/dL Magnesium (1.7-2.2) mg/dL Total Bilirubin (0.2-1.3) mg/dL AST (17-59) U/L ALT (7-56) U/L Alkaline Phosphatase (38-126) U/L Troponin I ng/mL Total Protein (5.8-8.3) g/dL Albumin (3.0-4.8) g/dL Globulin gm/dL Albumin/Globulin Ratio (1.1-1.8) Triglycerides (35-160) mg/dL Cholesterol (130-200) mg/dL LDL Cholesterol Direct (0-129) mg/dL HDL Cholesterol (29-60) mg/dL Free T4 (0.78-2.19) ng/dL TSH 3rd Generation (0.46-4.68) mIU/mL 07/31/17 07/31/17 07/31/17 Range/Units 11:05 07:48 06:30 WBC (4.5-11.0) 10^3/ul RBC (3.5-6.1) 10^6/uL Hgb (14.0-18.0) g/dL Hct (42.0-52.0) % MCV (80.0-105.0) fl MCH (25.0-35.0) pg MCHC (31.0-37.0) g/dl RDW (11.5-14.5) % Plt Count (120.0-450.0) 10^3/uL MPV (7.0-11.0) fl Gran % (50.0-68.0) % Lymph % (Auto) (22.0-35.0) % [place] % (Auto) (1.0-6.0) % Eos % (Auto) (1.5-5.0) % Baso % (Auto) (0.0-3.0) % Gran # (1.4-6.5) Lymph # (Auto) (1.2-3.4) [place] # (Auto) (0.1-0.6) Eos # (Auto) (0.0-0.7) Baso # (Auto) (0.0-2.0) K/mm3 pCO2 44 (35-45) mm/Hg pO2 348.0 H (80-100) mm/Hg HCO3 22.7 (21-28) mmol/L ABG pH 7.32 L (7.35-7.45) ABG Total CO2 24.1 (22-28) mmol.L ABG O2 Saturation 100.1 H (95-98) % ABG O2 Content 12.0 L (15-23) ML/dl ABG Base Excess -3.2 L (-2.0-3.0) mmol/L ABG Hemoglobin 8.0 L (11.7-17.4) g/dL ABG Carboxyhemoglobin 1.7 H (0.5-1.5) % POC ABG HHb (Measured) -0.1 L (0-5) % ABG Methemoglobin 0.6 (0.0-3.0) % ABG O2 Capacity 12.0 L (16-24) mL/dl Hgb O2 Saturation 97.8 (95.0-98.0) % FiO2 100.0 % Sodium (132-148) mmol/L Potassium (3.6-5.0) mmol/L Chloride (98-107) mmol/L Carbon Dioxide (21-33) mmol/L Anion Gap (10-20) BUN (7-21) mg/dL Creatinine (0.8-1.5) mg/dl Est GFR ( Amer) Est GFR (Non-Af Amer) POC Glucose (mg/dL) 109 (65-110) mg/dL Random Glucose (70-110) mg/dL Hemoglobin A1c (4.2-6.5) % Calcium (8.4-10.5) mg/dL Phosphorus (2.5-4.5) mg/dL Magnesium (1.7-2.2) mg/dL Total Bilirubin (0.2-1.3) mg/dL AST (17-59) U/L ALT (7-56) U/L Alkaline Phosphatase (38-126) U/L Troponin I 0.21 H* D ng/mL Total Protein (5.8-8.3) g/dL Albumin (3.0-4.8) g/dL Globulin gm/dL Albumin/Globulin Ratio (1.1-1.8) Triglycerides (35-160) mg/dL Cholesterol (130-200) mg/dL LDL Cholesterol Direct (0-129) mg/dL HDL Cholesterol (29-60) mg/dL Free T4 (0.78-2.19) ng/dL TSH 3rd Generation (0.46-4.68) mIU/mL 07/31/17 07/31/17 07/31/17 Range/Units 06:15 06:15 06:15 WBC (4.5-11.0) 10^3/ul RBC (3.5-6.1) 10^6/uL Hgb (14.0-18.0) g/dL Hct (42.0-52.0) % MCV (80.0-105.0) fl MCH (25.0-35.0) pg MCHC (31.0-37.0) g/dl RDW (11.5-14.5) % Plt Count (120.0-450.0) 10^3/uL MPV (7.0-11.0) fl Gran % (50.0-68.0) % Lymph % (Auto) (22.0-35.0) % [place] % (Auto) (1.0-6.0) % Eos % (Auto) (1.5-5.0) % Baso % (Auto) (0.0-3.0) % Gran # (1.4-6.5) Lymph # (Auto) (1.2-3.4) [place] # (Auto) (0.1-0.6) Eos # (Auto) (0.0-0.7) Baso # (Auto) (0.0-2.0) K/mm3 pCO2 (35-45) mm/Hg pO2 (80-100) mm/Hg HCO3 (21-28) mmol/L ABG pH (7.35-7.45) ABG Total CO2 (22-28) mmol.L ABG O2 Saturation (95-98) % ABG O2 Content (15-23) ML/dl ABG Base Excess (-2.0-3.0) mmol/L ABG Hemoglobin (11.7-17.4) g/dL ABG Carboxyhemoglobin (0.5-1.5) % POC ABG HHb (Measured) (0-5) % ABG Methemoglobin (0.0-3.0) % ABG O2 Capacity (16-24) mL/dl Hgb O2 Saturation (95.0-98.0) % FiO2 % Sodium 139 (132-148) mmol/L Potassium 4.5 (3.6-5.0) mmol/L Chloride 107 (98-107) mmol/L Carbon Dioxide 23 (21-33) mmol/L Anion Gap 14 (10-20) BUN 44 H (7-21) mg/dL Creatinine 2.9 H (0.8-1.5) mg/dl Est GFR ( Amer) 25 Est GFR (Non-Af Amer) 21 POC Glucose (mg/dL) (65-110) mg/dL Random Glucose 128 H (70-110) mg/dL Hemoglobin A1c 5.4 (4.2-6.5) % Calcium 7.9 L (8.4-10.5) mg/dL Phosphorus 4.6 H (2.5-4.5) mg/dL Magnesium 1.9 (1.7-2.2) mg/dL Total Bilirubin 0.2 (0.2-1.3) mg/dL AST 35 (17-59) U/L ALT 38 (7-56) U/L Alkaline Phosphatase 204 H (38-126) U/L Troponin I 0.16 H* D ng/mL Total Protein 5.5 L (5.8-8.3) g/dL Albumin 2.7 L (3.0-4.8) g/dL Globulin 2.8 gm/dL Albumin/Globulin Ratio 1.0 L (1.1-1.8) Triglycerides 98 (35-160) mg/dL Cholesterol 118 L (130-200) mg/dL LDL Cholesterol Direct 58 (0-129) mg/dL HDL Cholesterol 36 (29-60) mg/dL Free T4 1.43 (0.78-2.19) ng/dL TSH 3rd Generation 2.23 (0.46-4.68) mIU/mL 07/31/17 Range/Units 06:15 WBC 5.0 D (4.5-11.0) 10^3/ul RBC 2.84 L (3.5-6.1) 10^6/uL Hgb 7.6 L (14.0-18.0) g/dL Hct 23.9 L (42.0-52.0) % MCV 84.2 (80.0-105.0) fl MCH 26.8 (25.0-35.0) pg MCHC 31.8 (31.0-37.0) g/dl RDW 18.8 H (11.5-14.5) % Plt Count 370 (120.0-450.0) 10^3/uL MPV 10.5 (7.0-11.0) fl Gran % 73.4 H (50.0-68.0) % Lymph % (Auto) 16.5 L (22.0-35.0) % [place] % (Auto) 8.9 H (1.0-6.0) % Eos % (Auto) 1.0 L (1.5-5.0) % Baso % (Auto) 0.2 (0.0-3.0) % Gran # 3.69 (1.4-6.5) Lymph # (Auto) 0.8 L (1.2-3.4) [place] # (Auto) 0.5 (0.1-0.6) Eos # (Auto) 0.1 (0.0-0.7) Baso # (Auto) 0.01 (0.0-2.0) K/mm3 pCO2 (35-45) mm/Hg pO2 (80-100) mm/Hg HCO3 (21-28) mmol/L ABG pH (7.35-7.45) ABG Total CO2 (22-28) mmol.L ABG O2 Saturation (95-98) % ABG O2 Content (15-23) ML/dl ABG Base Excess (-2.0-3.0) mmol/L ABG Hemoglobin (11.7-17.4) g/dL ABG Carboxyhemoglobin (0.5-1.5) % POC ABG HHb (Measured) (0-5) % ABG Methemoglobin (0.0-3.0) % ABG O2 Capacity (16-24) mL/dl Hgb O2 Saturation (95.0-98.0) % FiO2 % Sodium (132-148) mmol/L Potassium (3.6-5.0) mmol/L Chloride (98-107) mmol/L Carbon Dioxide (21-33) mmol/L Anion Gap (10-20) BUN (7-21) mg/dL Creatinine (0.8-1.5) mg/dl Est GFR ( Amer) Est GFR (Non-Af Amer) POC Glucose (mg/dL) (65-110) mg/dL Random Glucose (70-110) mg/dL Hemoglobin A1c (4.2-6.5) % Calcium (8.4-10.5) mg/dL Phosphorus (2.5-4.5) mg/dL Magnesium (1.7-2.2) mg/dL Total Bilirubin (0.2-1.3) mg/dL AST (17-59) U/L ALT (7-56) U/L Alkaline Phosphatase (38-126) U/L Troponin I ng/mL Total Protein (5.8-8.3) g/dL Albumin (3.0-4.8) g/dL Globulin gm/dL Albumin/Globulin Ratio (1.1-1.8) Triglycerides (35-160) mg/dL Cholesterol (130-200) mg/dL LDL Cholesterol Direct (0-129) mg/dL HDL Cholesterol (29-60) mg/dL Free T4 (0.78-2.19) ng/dL TSH 3rd Generation (0.46-4.68) mIU/mL Laboratory Results - last 24 hr 07/31/17 07/31/17 07/31/17 06:15 06:15 06:15 WBC 5.0 D RBC 2.84 L Hgb 7.6 L Hct 23.9 L MCV 84.2 MCH 26.8 MCHC 31.8 RDW 18.8 H Plt Count 370 MPV 10.5 Gran % 73.4 H Lymph % (Auto) 16.5 L [place] % (Auto) 8.9 H Eos % (Auto) 1.0 L Baso % (Auto) 0.2 Gran # 3.69 Lymph # (Auto) 0.8 L [place] # (Auto) 0.5 Eos # (Auto) 0.1 Baso # (Auto) 0.01 pCO2 pO2 HCO3 ABG pH ABG Total CO2 ABG O2 Saturation ABG O2 Content ABG Base Excess ABG Hemoglobin ABG Carboxyhemoglobin POC ABG HHb (Measured) ABG Methemoglobin ABG O2 Capacity Hgb O2 Saturation FiO2 Sodium 139 Potassium 4.5 Chloride 107 Carbon Dioxide 23 Anion Gap 14 BUN 44 H Creatinine 2.9 H Est GFR ( Amer) 25 Est GFR (Non-Af Amer) 21 POC Glucose (mg/dL) Random Glucose 128 H Hemoglobin A1c 5.4 Calcium 7.9 L Phosphorus 4.6 H Magnesium 1.9 Total Bilirubin 0.2 AST 35 ALT 38 Alkaline Phosphatase 204 H Troponin I 0.16 H* D Total Protein 5.5 L Albumin 2.7 L Globulin 2.8 Albumin/Globulin Ratio 1.0 L Triglycerides 98 Cholesterol 118 L LDL Cholesterol Direct 58 HDL Cholesterol 36 Free T4 TSH 3rd Generation 07/31/17 07/31/17 07/31/17 06:15 06:30 07:48 WBC RBC Hgb Hct MCV MCH MCHC RDW Plt Count MPV Gran % Lymph % (Auto) [place] % (Auto) Eos % (Auto) Baso % (Auto) Gran # Lymph # (Auto) [place] # (Auto) Eos # (Auto) Baso # (Auto) pCO2 44 pO2 348.0 H HCO3 22.7 ABG pH 7.32 L ABG Total CO2 24.1 ABG O2 Saturation 100.1 H ABG O2 Content 12.0 L ABG Base Excess -3.2 L ABG Hemoglobin 8.0 L ABG Carboxyhemoglobin 1.7 H POC ABG HHb (Measured) -0.1 L ABG Methemoglobin 0.6 ABG O2 Capacity 12.0 L Hgb O2 Saturation 97.8 FiO2 100.0 Sodium Potassium Chloride Carbon Dioxide Anion Gap BUN Creatinine Est GFR ( Amer) Est GFR (Non-Af Amer) POC Glucose (mg/dL) 109 Random Glucose Hemoglobin A1c Calcium Phosphorus Magnesium Total Bilirubin AST ALT Alkaline Phosphatase Troponin I Total Protein Albumin Globulin Albumin/Globulin Ratio Triglycerides Cholesterol LDL Cholesterol Direct HDL Cholesterol Free T4 1.43 TSH 3rd Generation 2.23 07/31/17 07/31/17 07/31/17 11:05 12:24 12:28 WBC RBC Hgb Hct MCV MCH MCHC RDW Plt Count MPV Gran % Lymph % (Auto) [place] % (Auto) Eos % (Auto) Baso % (Auto) Gran # Lymph # (Auto) [place] # (Auto) Eos # (Auto) Baso # (Auto) pCO2 pO2 HCO3 ABG pH ABG Total CO2 ABG O2 Saturation ABG O2 Content ABG Base Excess ABG Hemoglobin ABG Carboxyhemoglobin POC ABG HHb (Measured) ABG Methemoglobin ABG O2 Capacity Hgb O2 Saturation FiO2 Sodium Potassium Chloride Carbon Dioxide Anion Gap BUN Creatinine Est GFR ( Amer) Est GFR (Non-Af Amer) POC Glucose (mg/dL) 57 L 60 L Random Glucose Hemoglobin A1c Calcium Phosphorus Magnesium Total Bilirubin AST ALT Alkaline Phosphatase Troponin I 0.21 H* D Total Protein Albumin Globulin Albumin/Globulin Ratio Triglycerides Cholesterol LDL Cholesterol Direct HDL Cholesterol Free T4 TSH 3rd Generation 07/31/17 13:29 WBC RBC Hgb Hct MCV MCH MCHC RDW Plt Count MPV Gran % Lymph % (Auto) [place] % (Auto) Eos % (Auto) Baso % (Auto) Gran # Lymph # (Auto) [place] # (Auto) Eos # (Auto) Baso # (Auto) pCO2 pO2 HCO3 ABG pH ABG Total CO2 ABG O2 Saturation ABG O2 Content ABG Base Excess ABG Hemoglobin ABG Carboxyhemoglobin POC ABG HHb (Measured) ABG Methemoglobin ABG O2 Capacity Hgb O2 Saturation FiO2 Sodium Potassium Chloride Carbon Dioxide Anion Gap BUN Creatinine Est GFR ( Amer) Est GFR (Non-Af Amer) POC Glucose (mg/dL) 71 Random Glucose Hemoglobin A1c Calcium Phosphorus Magnesium Total Bilirubin AST ALT Alkaline Phosphatase Troponin I Total Protein Albumin Globulin Albumin/Globulin Ratio Triglycerides Cholesterol LDL Cholesterol Direct HDL Cholesterol Free T4 TSH 3rd Generation Attending/Attestation - Attestation I have personally seen and examined this patient.: Yes I have fully participated in the care of the patient.: Yes I have reviewed all pertinent clinical information: Yes Notes (Text): 07/31/17 15:41 87 yo male admitted to ICU after code blue with ROSC in ER, requiring vent and vasopressor support. Today, successfully extubated, vasopressors are weaned off. Etiology of preceded code blue/shock is being clarified: 1. Echo (prelim, official report is pending): no substantial RV or LV systolic or diastolic dysfunction, no pericardial effusion, patient is afebrile and doesnt have leukocytosis, CXR-no tension pneumothorax. No obvious bleed and Hb relatively stable. Patient was on DVT prophyalxis at home after hip surgery and no substantial RV dysfunction on Echo argues against PE/obstructive shock. CT head showed suspicious hyperdense lesion-MRI of head is pending to clarify a finding. Meanwhile patient is delirious and agitated, confused (elderly, has underlying dementia, icu setting)--precedex started, but incremental rates led to borderline BP, required geodone (risks and benefits of anti-psychotics in the situation considered). Frequent re-orientation, optimization of sleep and circadian rhythms are in process. DVT/GI prophyalxis ccm time 40 min
--- NOTE | 2017-07-31 08:47 | RAD ---
HISTORY: post intubation COMPARISON: July 30, 2017. Time of the most recent examination: Of 49 cm. FINDINGS: LUNGS: Multifocal infiltrates primarily lower lobes right greater than left. PLEURA: No significant pleural effusion identified, no pneumothorax apparent. CARDIOVASCULAR: Normal. OSSEOUS STRUCTURES: No significant abnormalities. VISUALIZED UPPER ABDOMEN: Normal. OTHER FINDINGS: Satisfactory position of recently placed support apparatus including endotracheal tube and nasogastric tube. IMPRESSION: Satisfactory position of endotracheal tube, nasogastric tube. Persistent bilateral infiltrates right greater than left.
--- NOTE | 2017-07-31 08:49 | NM ---
COMPARISON: July 31, 2017. Single-view chest TECHNIQUE: mCI technetium 99-m MAA administered intravenously. FINDINGS: VENTILATION COMPONENT: Ventilation component not performed. PERFUSION COMPONENT: Heterogeneous distribution of radionuclide. No geographic, segmental, lobar abnormalities apparent on the present examination. IMPRESSION: Mildly Heterogeneous profusion without segmental, geographic, lobar abnormality. Limitations of the current examination: Absence of ventilatory component.
--- NOTE | 2017-07-31 08:53 | CARD ---
APPROVED REPORT EKG Measurement Heart [id number] <Conclusion> Atrial fibrillation with rapid ventricular response ST & T wave abnormality, consider inferolateral ischemia or digitalis effect LVH.
--- NOTE | 2017-07-31 08:54 | RAD ---
HISTORY: TLC check COMPARISON: July 31, 2017. Time of the most recent examination: 01:50. FINDINGS: LUNGS: Improved aeration of the lungs compared to the most recent study. PLEURA: No significant pleural effusion identified, no pneumothorax apparent. CARDIOVASCULAR: Venous access catheter in satisfactory position. OSSEOUS STRUCTURES: No significant abnormalities. VISUALIZED UPPER ABDOMEN: Normal. OTHER FINDINGS: Stable position of endotracheal tube and nasogastric tube. IMPRESSION: S/p TLC catheter right internal jugular approach. Catheter in good position common no pneumothorax. Improved aeration of the lungs compared to the most recent study.
--- NOTE | 2017-07-31 10:11 | CP.PCM.CON ---
<Rubi Franco - Last Filed: 07/31/17 12:57> History of Present Illness - History of Present Illness History of Present Illness: Neurology Consult Note - Dr. Ham CC: Chest pain to cardiac arrest in ED HPI: 87 Polish M with a PMHx of HTN, unspecified kidney dz, afib, recent ORIF on lovenox 30mg at home and relatively immobile, and dementia presented to [facility] unresponsive and pulseless in cardiac arrest. As per family, pt had complaints of chest pains earlier in the day which was associated with shortness of breath and eventually lost consciousness and fell to the ground unsure if trauma was sustained to the head. Family denied any uncontrollable movements, urinary incontinence or tongue biting. Family called for EMS, and were instructed to start CPR at home until help could arrive. As per family, pt was arousable once EMS arrived and was subsequently transported to [facility]. While in the ED, pt once again fell unresponsive and pulseless at which time ACLS protocol was initiated and ROSC was achieved after one round of epinephrine , with a down time of 3-5 mins. Pt was intubated, placed on mechanical ventilator, sedated, right IJ TLC placed, and levophed support initiated. Pt was seen and examined at bedside. Pt remains mechanically intubated, sedated but arousable to painful stimuli, on pressor support with treadwell placed. 12 point ROS unobtainable due to patient's condition. PMHx: HTN, kidney dz, dementia PSHx: ORIF (3 weeks ago) SHx: 1ppd x 60 years; drinks EtOH socially; denied drug use FamHx: Noncontributory Meds: MAR Reviewed Allergies: NKDA Review of Systems - Review of Systems Systems not reviewed;Unavailable: Acuity of Condition, Altered Mental Status Past Patient History - Infectious Disease Hx of Infectious Diseases: None - Past Social History Smoking Status: Former Smoker - CARDIAC Hx Cardiac Disorders: Yes Hx Angina: Yes - PULMONARY Hx Respiratory Disorders: No - NEUROLOGICAL Hx Neurological Disorder: Yes Hx Dementia: Yes - HEENT Hx HEENT Problems: No - RENAL Hx Chronic Kidney Disease: Yes Other/Comment: kidney disease - ENDOCRINE/METABOLIC Hx Endocrine Disorders: No - HEMATOLOGICAL/ONCOLOGICAL Hx Blood Disorders: No - INTEGUMENTARY Hx Dermatological Problems: No - MUSCULOSKELETAL/RHEUMATOLOGICAL Hx Falls: Yes Hx Fractures: Yes - GASTROINTESTINAL Hx Gastrointestinal Disorders: No - GENITOURINARY/GYNECOLOGICAL Hx Genitourinary Disorders: No - PSYCHIATRIC Hx Psychophysiologic Disorder: No Hx Substance Use: No - SURGICAL HISTORY Hx Surgeries: Yes Hx Joint Replacement: Yes Hx Orthopedic Surgery: Yes - ANESTHESIA Hx Anesthesia: Yes Hx Anesthesia Reactions: No Hx Malignant Hyperthermia: No Meds Allergies/Adverse Reactions: Allergies Allergy/AdvReac Type Severity Reaction Status Date / Time No Known Allergies Allergy Verified 07/30/17 23:30 - Medications Medications: Current Medications Acetaminophen (Tylenol 325mg Tab) 650 mg PO Q4 PRN PRN Reason: Fever >100.4 F Albuterol/Ipratropium (Duoneb 3 Mg/0.5 Mg (3 Ml) Ud) 3 ml IH [id number] [facility] Last Admin: 07/31/17 07:41 Dose: 3 ml NOREPINEPHRINE BIT/0.9 % NACL (Levophed 4 Mg/ 250 Ml Ns Premixed) 4 mg in 250 mls @ 15 mls/hr IV .[id number] PRN; Protocol; 4 MCG/MIN PRN Reason: TITRATE PER MD ORDER Last Admin: 07/31/17 02:04 Dose: 15 mls/hr Propofol (Diprivan) 1,000 mg in 100 mls @ 2.381 mls/hr IV .Q24H PRN; Protocol; 5 MCG/KG/MIN PRN Reason: TITRATE PER MD ORDER Last Titration: 07/31/17 09:20 Dose: 0 mcg/kg/min, 0 mls/hr Vancomycin HCl (Vancomycin 1gm) 1 gm in 250 mls @ 167 mls/hr IVPB DAILY JAIMIE PRN Reason: Protocol Last Admin: 07/31/17 08:03 Dose: 167 mls/hr Sodium Chloride (Sodium Chloride 0.9%) 1,000 mls @ 60 mls/hr IV .[id number] JAIMIE Last Admin: 07/31/17 08:04 Dose: 60 mls/hr Meropenem 500 mg/ Sodium (Chloride) 50 mls @ 100 mls/hr IVPB Q12 JAIMIE PRN Reason: Protocol Stop: 08/07/17 09:01 Insulin Human Lispro (Humalog Low) 0 units SC Q6H JAIMIE PRN Reason: Protocol Last Admin: 07/31/17 03:00 Dose: Not Given Pantoprazole Sodium (Protonix Inj) 40 mg IVP DAILY JAIMIE Physical Exam - Constitutional Appears: No Acute Distress - Head Exam Head Exam: ATRAUMATIC, NORMOCEPHALIC - Eye Exam Eye Exam: EOMI Pupil Exam: PERRL - ENT Exam ENT Exam: Mucous Membranes Moist - Respiratory Exam Respiratory Exam: Rhonchi (b/l base) Additional comments: mechanically ventilated - Cardiovascular Exam Cardiovascular Exam: Irregular Rhythm, +S1, +S2 - GI/Abdominal Exam GI & Abdominal Exam: Normal Bowel Sounds, Soft. absent: Tenderness - Neurological Exam Neurological exam: Altered Additional comments: sedated, arousable to painful stimulus. - Skin Skin Exam: Dry, Intact, Normal Color, Warm Results - Vital Signs Recent Vital Signs: Last Vital Signs Temp 95.6 F L 07/31/17 06:45 Pulse 71 07/31/17 08:10 Resp 17 07/31/17 07:04 BP 119/62 07/31/17 08:00 Pulse Ox 100 07/31/17 08:10 - Labs Result Diagrams: 07/31/17 06:15 07/31/17 06:15 Labs: Laboratory Results - last 24 hr 07/31/17 07/31/17 07/31/17 06:15 06:15 06:15 WBC 5.0 D RBC 2.84 L Hgb 7.6 L Hct 23.9 L MCV 84.2 MCH 26.8 MCHC 31.8 RDW 18.8 H Plt Count 370 MPV 10.5 Gran % 73.4 H Lymph % (Auto) 16.5 L Donley % (Auto) 8.9 H Eos % (Auto) 1.0 L Baso % (Auto) 0.2 Gran # 3.69 Lymph # (Auto) 0.8 L Donley # (Auto) 0.5 Eos # (Auto) 0.1 Baso # (Auto) 0.01 pCO2 pO2 HCO3 ABG pH ABG Total CO2 ABG O2 Saturation ABG O2 Content ABG Base Excess ABG Hemoglobin ABG Carboxyhemoglobin POC ABG HHb (Measured) ABG Methemoglobin ABG O2 Capacity Hgb O2 Saturation FiO2 Sodium 139 Potassium 4.5 Chloride 107 Carbon Dioxide 23 Anion Gap 14 BUN 44 H Creatinine 2.9 H Est GFR ( Amer) 25 Est GFR (Non-Af Amer) 21 POC Glucose (mg/dL) Random Glucose 128 H Calcium 7.9 L Phosphorus 4.6 H Magnesium 1.9 Total Bilirubin 0.2 AST 35 ALT 38 Alkaline Phosphatase 204 H Troponin I 0.16 H* D Total Protein 5.5 L Albumin 2.7 L Globulin 2.8 Albumin/Globulin Ratio 1.0 L Triglycerides 98 Cholesterol 118 L LDL Cholesterol Direct 58 HDL Cholesterol 36 Free T4 1.43 TSH 3rd Generation 2.23 07/31/17 07/31/17 06:30 07:48 WBC RBC Hgb Hct MCV MCH MCHC RDW Plt Count MPV Gran % Lymph % (Auto) Donley % (Auto) Eos % (Auto) Baso % (Auto) Gran # Lymph # (Auto) Donley # (Auto) Eos # (Auto) Baso # (Auto) pCO2 44 pO2 348.0 H HCO3 22.7 ABG pH 7.32 L ABG Total CO2 24.1 ABG O2 Saturation 100.1 H ABG O2 Content 12.0 L ABG Base Excess -3.2 L ABG Hemoglobin 8.0 L ABG Carboxyhemoglobin 1.7 H POC ABG HHb (Measured) -0.1 L ABG Methemoglobin 0.6 ABG O2 Capacity 12.0 L Hgb O2 Saturation 97.8 FiO2 100.0 Sodium Potassium Chloride Carbon Dioxide Anion Gap BUN Creatinine Est GFR ( Amer) Est GFR (Non-Af Amer) POC Glucose (mg/dL) 109 Random Glucose Calcium Phosphorus Magnesium Total Bilirubin AST ALT Alkaline Phosphatase Troponin I Total Protein Albumin Globulin Albumin/Globulin Ratio Triglycerides Cholesterol LDL Cholesterol Direct HDL Cholesterol Free T4 TSH 3rd Generation Assessment & Plan - Assessment and Plan (Free Text) Assessment: 87 Polish M with a PMHx HTN, afib, unspecified kidney disease, recent ORIF on lovenox at home with immobilization for past 3 weeks, and dementia presented to [facility] in cardiac arrest x 2. Pt is currently intubated, sedated, arousable to painful stimulus, on pressor support, and with treadwell. CTH report addended as demonstrating 1.7 x 2.5 x 2.7 cm at the level of the 3rd ventricle. V/Q scan was limited - pt mech ventilated, EKG demonstrated Afib rhythm, Positive troponins uptrending, renal dysfunction, on broad spec abx. Will recommend stat repeat CTH, fu, echo, MRI/MRA, EEG, sedation that will not elevate ICP. Maintain MAP>65 in setting of likely hydrocephalus and elevated ICP. Prophylaxis for seizures and rebleed. Consider FFP. <Camilo Ham - Last Filed: 07/31/17 18:31> Meds - Medications Medications: Current Medications Acetaminophen (Tylenol 325mg Tab) 650 mg PO Q4 PRN PRN Reason: Fever >100.4 F Albuterol/Ipratropium (Duoneb 3 Mg/0.5 Mg (3 Ml) Ud) 3 ml IH [id number] [facility] Last Admin: 07/31/17 13:57 Dose: 3 ml NOREPINEPHRINE BIT/0.9 % NACL (Levophed 4 Mg/ 250 Ml Ns Premixed) 4 mg in 250 mls @ 15 mls/hr IV .[id number] PRN; Protocol; 4 MCG/MIN PRN Reason: TITRATE PER MD ORDER Last Titration: 07/31/17 07:38 Dose: 2 mcg/min, 7.5 mls/hr Propofol (Diprivan) 1,000 mg in 100 mls @ 2.381 mls/hr IV .Q24H PRN; Protocol; 5 MCG/KG/MIN PRN Reason: TITRATE PER MD ORDER Last Titration: 07/31/17 09:20 Dose: 0 mcg/kg/min, 0 mls/hr Meropenem 500 mg/ Sodium (Chloride) 50 mls @ 100 mls/hr IVPB Q12 JAIMIE PRN Reason: Protocol Stop: 08/07/17 09:01 Last Admin: 07/31/17 10:46 Dose: 100 mls/hr Dexmedetomidine HCl (Precedex 400mcg/100ml) 400 mcg in 100 mls @ 3.969 mls/hr IV .Q24H PRN; Protocol; 0.2 MCG/KG/HR PRN Reason: Symptoms of alcohol withdrawl Last Titration: 07/31/17 14:10 Dose: 0.6 mcg/kg/hr, 11.907 mls/hr Dextrose/Sodium Chloride (Dextrose 5%/0.9% Ns 1000 Ml) 1,000 mls @ 100 mls/hr IV .Q10H [facility] Last Admin: 07/31/17 12:38 Dose: 100 mls/hr Insulin Human Lispro (Humalog Low) 0 units SC Q6H JAIMIE PRN Reason: Protocol Last Admin: 07/31/17 17:24 Dose: Not Given Pantoprazole Sodium (Protonix Inj) 40 mg IVP DAILY JAIMIE Last Admin: 07/31/17 10:47 Dose: 40 mg Verapamil HCl (Verapamil Inj) 2.5 mg IVP Q6H PRN PRN Reason: for heart rate >130 Results - Vital Signs Recent Vital Signs: Last Vital Signs Temp 95.6 F L 07/31/17 06:45 Pulse 63 07/31/17 18:23 Resp 14 07/31/17 18:15 BP 92/35 L 07/31/17 18:15 Pulse Ox 100 07/31/17 18:15 - Labs Result Diagrams: 07/31/17 06:15 07/31/17 06:15 Labs: Laboratory Results - last 24 hr 07/31/17 07/31/17 07/31/17 06:00 06:15 06:15 WBC 5.0 D RBC 2.84 L Hgb 7.6 L Hct 23.9 L MCV 84.2 MCH 26.8 MCHC 31.8 RDW 18.8 H Plt Count 370 MPV 10.5 Gran % 73.4 H Lymph % (Auto) 16.5 L Donley % (Auto) 8.9 H Eos % (Auto) 1.0 L Baso % (Auto) 0.2 Gran # 3.69 Lymph # (Auto) 0.8 L Donley # (Auto) 0.5 Eos # (Auto) 0.1 Baso # (Auto) 0.01 pCO2 pO2 HCO3 ABG pH ABG Total CO2 ABG O2 Saturation ABG O2 Content ABG Base Excess ABG Hemoglobin ABG Carboxyhemoglobin POC ABG HHb (Measured) ABG Methemoglobin ABG O2 Capacity Hgb O2 Saturation FiO2 Sodium 139 Potassium 4.5 Chloride 107 Carbon Dioxide 23 Anion Gap 14 BUN 44 H Creatinine 2.9 H Est GFR ( Amer) 25 Est GFR (Non-Af Amer) 21 POC Glucose (mg/dL) Random Glucose 128 H Hemoglobin A1c 5.4 Calcium 7.9 L Phosphorus 4.6 H Magnesium 1.9 Total Bilirubin 0.2 AST 35 ALT 38 Alkaline Phosphatase 204 H Troponin I 0.16 H* D Total Protein 5.5 L Albumin 2.7 L Globulin 2.8 Albumin/Globulin Ratio 1.0 L Triglycerides 98 Cholesterol 118 L LDL Cholesterol Direct 58 HDL Cholesterol 36 Free T4 TSH 3rd Generation 07/31/17 07/31/17 07/31/17 06:15 06:15 06:30 WBC RBC Hgb Hct MCV MCH MCHC RDW Plt Count MPV Gran % Lymph % (Auto) Donley % (Auto) Eos % (Auto) Baso % (Auto) Gran # Lymph # (Auto) Donley # (Auto) Eos # (Auto) Baso # (Auto) pCO2 44 pO2 348.0 H HCO3 22.7 ABG pH 7.32 L ABG Total CO2 24.1 ABG O2 Saturation 100.1 H ABG O2 Content 12.0 L ABG Base Excess -3.2 L ABG Hemoglobin 8.0 L ABG Carboxyhemoglobin 1.7 H POC ABG HHb (Measured) -0.1 L ABG Methemoglobin 0.6 ABG O2 Capacity 12.0 L Hgb O2 Saturation 97.8 FiO2 100.0 Sodium Potassium Chloride Carbon Dioxide Anion Gap BUN Creatinine Est GFR ( Amer) Est GFR (Non-Af Amer) POC Glucose (mg/dL) Random Glucose Hemoglobin A1c 5.4 Calcium Phosphorus Magnesium Total Bilirubin AST ALT Alkaline Phosphatase Troponin I Total Protein Albumin Globulin Albumin/Globulin Ratio Triglycerides Cholesterol LDL Cholesterol Direct HDL Cholesterol Free T4 1.43 TSH 3rd Generation 2.23 07/31/17 07/31/17 07/31/17 07:48 11:05 12:24 WBC RBC Hgb Hct MCV MCH MCHC RDW Plt Count MPV Gran % Lymph % (Auto) Donley % (Auto) Eos % (Auto) Baso % (Auto) Gran # Lymph # (Auto) Donley # (Auto) Eos # (Auto) Baso # (Auto) pCO2 pO2 HCO3 ABG pH ABG Total CO2 ABG O2 Saturation ABG O2 Content ABG Base Excess ABG Hemoglobin ABG Carboxyhemoglobin POC ABG HHb (Measured) ABG Methemoglobin ABG O2 Capacity Hgb O2 Saturation FiO2 Sodium Potassium Chloride Carbon Dioxide Anion Gap BUN Creatinine Est GFR ( Amer) Est GFR (Non-Af Amer) POC Glucose (mg/dL) 109 57 L Random Glucose Hemoglobin A1c Calcium Phosphorus Magnesium Total Bilirubin AST ALT Alkaline Phosphatase Troponin I 0.21 H* D Total Protein Albumin Globulin Albumin/Globulin Ratio Triglycerides Cholesterol LDL Cholesterol Direct HDL Cholesterol Free T4 TSH 3rd Generation 07/31/17 07/31/17 07/31/17 12:28 13:29 14:36 WBC RBC Hgb Hct MCV MCH MCHC RDW Plt Count MPV Gran % Lymph % (Auto) Donley % (Auto) Eos % (Auto) Baso % (Auto) Gran # Lymph # (Auto) Donley # (Auto) Eos # (Auto) Baso # (Auto) pCO2 pO2 HCO3 ABG pH ABG Total CO2 ABG O2 Saturation ABG O2 Content ABG Base Excess ABG Hemoglobin ABG Carboxyhemoglobin POC ABG HHb (Measured) ABG Methemoglobin ABG O2 Capacity Hgb O2 Saturation FiO2 Sodium Potassium Chloride Carbon Dioxide Anion Gap BUN Creatinine Est GFR ( Amer) Est GFR (Non-Af Amer) POC Glucose (mg/dL) 60 L 71 86 Random Glucose Hemoglobin A1c Calcium Phosphorus Magnesium Total Bilirubin AST ALT Alkaline Phosphatase Troponin I Total Protein Albumin Globulin Albumin/Globulin Ratio Triglycerides Cholesterol LDL Cholesterol Direct HDL Cholesterol Free T4 TSH 3rd Generation Attending/Attestation - Attestation I have personally seen and examined this patient.: Yes I have fully participated in the care of the patient.: Yes I have reviewed all pertinent clinical information: Yes
[2017-07-31] MEDS: Meropenem 500 MG in Sodium Chloride 0.9% 50 ML IVPB SCH ×2 (10:46→22:53)
[2017-07-31] MEDS ORDERED: Dexmedetomidine 400mcg/100mL 400 MCG/100 ML BOTTLE IV PRN (11:16)
--- NOTE | 2017-07-31 12:35 | CP.PCM.CON ---
History of Present Illness - History of Present Illness History of Present Illness: 87 year old male with PMH of chronic renal failure, HTN, dementia, significant smoking history, S/P ORIF 3 weeks ago was brought in to [facility] because of unresponsiveness and the patient was found to be in cardiorespiratory arrest. Prior to the episode the patient was apparently feeling short of breath and lightheaded, and the patient fell to the floor. There was no note of bowel or urinary incontinence, no convulsions. In the ED, the patient was revived after ACLS was initiated, placed on the ventilator and intubated and is now in the ICU for close observation and management. The patient was noted to be hypothermic. CXR showed vascular congestion but cannot rule out pneumonia. Infectious diseases consult is requested to further evaluate and manage. Review of Systems - Review of Systems All systems: reviewed and no additional remarkable complaints except (as per HPI ) Past Patient History - Infectious Disease Hx of Infectious Diseases: None - Past Social History Smoking Status: Former Smoker - CARDIAC Hx Cardiac Disorders: Yes Hx Angina: Yes - PULMONARY Hx Respiratory Disorders: No - NEUROLOGICAL Hx Neurological Disorder: Yes Hx Dementia: Yes - HEENT Hx HEENT Problems: No - RENAL Hx Chronic Kidney Disease: Yes Other/Comment: kidney disease - ENDOCRINE/METABOLIC Hx Endocrine Disorders: No - HEMATOLOGICAL/ONCOLOGICAL Hx Blood Disorders: No - INTEGUMENTARY Hx Dermatological Problems: No - MUSCULOSKELETAL/RHEUMATOLOGICAL Hx Falls: Yes Hx Fractures: Yes - GASTROINTESTINAL Hx Gastrointestinal Disorders: No - GENITOURINARY/GYNECOLOGICAL Hx Genitourinary Disorders: No - PSYCHIATRIC Hx Psychophysiologic Disorder: No Hx Substance Use: No - SURGICAL HISTORY Hx Surgeries: Yes Hx Joint Replacement: Yes Hx Orthopedic Surgery: Yes - ANESTHESIA Hx Anesthesia: Yes Hx Anesthesia Reactions: No Hx Malignant Hyperthermia: No Meds Allergies/Adverse Reactions: Allergies Allergy/AdvReac Type Severity Reaction Status Date / Time No Known Allergies Allergy Verified 07/30/17 23:30 - Medications Medications: Current Medications Acetaminophen (Tylenol 325mg Tab) 650 mg PO Q4 PRN PRN Reason: Fever >100.4 F Albuterol/Ipratropium (Duoneb 3 Mg/0.5 Mg (3 Ml) Ud) 3 ml IH [id number] JAIMIE NOREPINEPHRINE BIT/0.9 % NACL (Levophed 4 Mg/ 250 Ml Ns Premixed) 4 mg in 250 mls @ 15 mls/hr IV .[id number] PRN; Protocol; 4 MCG/MIN PRN Reason: TITRATE PER MD ORDER Last Admin: 07/31/17 02:04 Dose: 15 mls/hr Propofol (Diprivan) 1,000 mg in 100 mls @ 2.381 mls/hr IV .Q24H PRN; Protocol; 5 MCG/KG/MIN PRN Reason: TITRATE PER MD ORDER Piperacillin Sod/Tazobactam Sod (Zosyn 2.25 Gm In 0.9% 100 Ml) 2.25 gm in 100 mls @ 100 mls/hr IVPB Q6 JAIMIE PRN Reason: Protocol Stop: 07/31/17 06:59 Vancomycin HCl (Vancomycin 1gm) 1 gm in 250 mls @ 167 mls/hr IVPB DAILY JAIMIE PRN Reason: Protocol Sodium Chloride (Sodium Chloride 0.9%) 1,000 mls @ 60 mls/hr IV .[id number] JAIMIE Insulin Human Lispro (Humalog Low) 0 units SC Q6H JAIMIE PRN Reason: Protocol Pantoprazole Sodium (Protonix Inj) 40 mg IVP DAILY [facility] Physical Exam - Constitutional Appears: Other (intubated, sedated but agitated) - Head Exam Head Exam: NORMAL INSPECTION - ENT Exam Additional comments: ET tube in place - Respiratory Exam Respiratory Exam: Decreased Breath Sounds, Rales (scattered) - Cardiovascular Exam Cardiovascular Exam: +S1, +S2 - GI/Abdominal Exam GI & Abdominal Exam: Soft. absent: Tenderness Results - Vital Signs Recent Vital Signs: Last Vital Signs Temp 94.5 F L 07/31/17 02:37 Pulse 76 07/31/17 04:50 Resp 17 07/31/17 04:50 BP 95/47 L 07/31/17 04:45 Pulse Ox 100 07/31/17 05:10 - Labs Result Diagrams: 07/31/17 06:15 07/31/17 06:15 Assessment & Plan - Assessment and Plan (Free Text) Plan: Assessment systemic inflammatory response syndrome with ventilator-dependent respiratory failure after cardiorespiratory arrest, R/O acute myocardial infarction, R/O acute CVA; R/O aspiration pneumonia chronic renal failure HTN dementia significant smoking history S/P ORIF Plan Patient has been given Vancomycin, a dose of IV Vancomycin and Zithromax; will continue on Merrem pending sputum cx, blood cx, PCT and will monitor clinically reviewed CXR which is vascular congestion - will check repeat CXR tomorrow follow up Cardiology and Neurology recommendations
[2017-07-31] MEDS: Dextrose 5%/0.9% NS 1,000 ML IV SCH ×2 (12:38→22:59)
--- NOTE | 2017-07-31 16:17 | MRI ---
PROCEDURE: Brain MRI without contrast HISTORY: acute infarct COMPARISON: Unenhanced head CT 07/31/2017. TECHNIQUE: Multiplanar, multisequence MR images of the brain were obtained without intravenous contrast enhancement. FINDINGS: Gross motion artifact distorts this examination significantly across essentially all sequences. There is no interval acute or subacute brain infarction appreciated. Diffuse cerebral atrophy chronic microangiopathy are again identified. An upper 3rd ventricle ovoid structure suggestive subacute hemorrhage is seen once again, measuring 1.7 x 2.9 x 2.6 cm (transverse by anteroposterior by superoinferior dimensions). There is a chance this may be cava colloid cyst though those appear more rounded and ovoid in shape in general. Hemorrhage within a a 3rd ventricle lesion is a possibility. Normal change in likely at least mild obstructive hydrocephalus is appreciated affecting the 3rd and bilateral lateral ventricles with the 4th ventricle remaining relatively small in size overall. Posterior fossa contents are stable as well as the brainstem. Flow which remain at the bilateral cavernous ICA segments as well as the basilar artery. IMPRESSION: Exam severely compromise or motion artifact. No suspicious interval findings are appreciated including the volume of the ventricular system at this time with the 3rd and bilateral lateral ventricles remaining prominent. A a mixed signal intensity lesion is seen across all sequences suspicious for potential hemorrhage within a mass or an atypical colloid cyst likely causing obstructive hydrocephalus though the ventricular volume is stable in the interval. Fourth ventricle remains relatively small compared to the remainder of the ventricular system. Clinically correlate further. No evidence of acute or subacute brain infarction at this time.
--- NOTE | 2017-07-31 17:00 | CARD ---
APPROVED REPORT EXAM: Two-dimensional and M-mode echocardiogram with Doppler and color Doppler. Surgery/Intervention S/P CARDIAC ARREST 2D DIMENSIONS Left Atrium (2D)4.1 (1.6-4.0cm)IVSd1.0 (0.7-1.1cm) LVDd4.1 (3.9-5.9cm)PWd1.1 (0.7-1.1cm) LVDs2.7 (2.5-4.0cm)FS (%) 33.8 % LVEF (%)63.2 (>50%) M-Mode DIMENSIONS Aortic Root3.00 (2.2-3.7cm)Aortic Cusp Exc.1.70 (1.5-2.0cm) Aortic Valve AoV Peak Hcvibemr514.0cm/Wayne Peak GR.8mmHg Mitral Valve MV E Uwhykzti68.4cm/sMV A Otydipvj192.0cm/sE/A ratio0.8 TDI Lateral E' Peak V11.30cm/sMedial E' Peak V7.70cm/sE/Lateral E'7.6 E/Medial E'11.2 Pulmonary Valve PV Peak Oiozfatf73.2cm/sPV Peak Grad.3mmHg Tricuspid Valve TR Peak Lwwirnxt393th/sRAP NBFMLDSV61etLtRC Peak Gr.25mmHg [id number] LEFT VENTRICLE The left ventricle is normal size. There is normal left ventricular wall thickness. The left ventricular function is normal. The left ventricular ejection fraction is within the normal range.LV Ej.Fr: 63%. There is normal LV segmental wall motion. Transmitral Doppler flow pattern is Grade I-abnormal relaxation pattern. RIGHT VENTRICLE The right ventricle is normal size. The right ventricular systolic function is normal. ATRIA LA Borderline Dilated. The right atrium size is normal. AORTIC VALVE The aortic valve is thickened but opens well. There is trace to mild aortic regurgitation. MITRAL VALVE The mitral valve is thickened but opens well. Mitral regurgitation is trace. TRICUSPID VALVE The tricuspid valve is normal in structure. There is trace tricuspid regurgitation.RVSP 35mm Hg. PERICARDIAL EFFUSION There is no pericardial effusion. <Conclusion> Echo Doppler done with Patient Lying Supine and on Ventilator. There is normal LV segmental wall motion. The left ventricular function is normal. The left ventricular ejection fraction is within the normal range.LV Ej.Fr: 63%. There is normal left ventricular wall thickness. The left ventricle is normal size. The right ventricle is normal size. The right ventricular systolic function is normal. The right atrium size is normal. LA Borderline Dilated. The aortic valve is thickened but opens well. There is trace to mild aortic regurgitation. The mitral valve is thickened but opens well. Mitral regurgitation is trace. Transmitral Doppler flow pattern is Grade I-abnormal relaxation pattern. The tricuspid valve is normal in structure. There is trace tricuspid regurgitation.RVSP 35mm Hg.
--- NOTE | 2017-07-31 17:19 | US ---
PROCEDURE: Ultrasound of the Kidneys HISTORY: TESSY on CKD? COMPARISON: None available. TECHNIQUE: Sonogram of the kidneys. FINDINGS: RIGHT KIDNEY: Measures: 9.9 x 5.4 x 4.2 cm. Normal in size, contour but with increased cortical echogenicity suggestive of intrinsic medical renal disease with mild cortical atrophy also evident. No stone, solid mass lesion or hydronephrosis visualized. LEFT KIDNEY: Measures: 9.0 x 4.8 x 4.3 cm. Normal in size, contour but with increased cortical echogenicity suggestive of intrinsic medical renal disease with mild cortical atrophy also evident. No stone, solid mass lesion or hydronephrosis visualized. For small cortical cysts are identified which appears simple with a dominant cyst identified at the medial upper pole somewhat exophytic measuring 2.2 x 1.9 x 2.7 cm. OTHER FINDINGS: None. IMPRESSION: No obstructive uropathy bilaterally. Consider intrinsic medical renal disease given increased cortical echogenicity in both kidneys. Mild bilateral renal cortical atrophy.
--- NOTE | 2017-07-31 17:27 | US ---
HISTORY: Leg pain and swelling. Evaluate for DVT PHYSICIAN(S): Ac Ferrer MD. TECHNIQUE: Duplex sonography and color-flow Doppler with graded compression were used to evaluate the deep venous systems of both lower extremities. The exam is somewhat limited by edema FINDINGS: The visualized deep venous systems of both lower extremities are sonographically normal and compressible. Normal wave forms and augmentation are seen. There is no sonographic evidence for deep venous thrombosis in the visualized segments of both lower extremities. IMPRESSION: No sonographic evidence for deep venous thrombosis in the visualized segments of both lower extremities.
[2017-07-31 19:27] LABS: BARBITURATES, UR NEGATIVE (NEGATIVE); BENZODIAZEPINES, UR NEGATIVE (NEGATIVE); OPIATES, UR NEGATIVE (NEGATIVE); PHENCYCLIDINE, UR NEGATIVE (NEGATIVE)
--- NOTE | 2017-07-31 21:11 | CON ---
DATE: 07/31/2017 HISTORY OF PRESENT ILLNESS: This is an 87-year-old gentleman with history of dementia, recent hip fracture, renal insufficiency, who was brought into the emergency department with some intermittent chest pain throughout the day. The patient was intubated during the episode of unresponsiveness. No more history of present illness available as patient is intubated and sedated at the present time. PAST MEDICAL HISTORY: Dementia, high blood pressure, and chronic kidney disease. HOME MEDICATIONS: Sodium bicarb, Lovenox for DVT prophylaxis, and amlodipine. SOCIAL HISTORY: The patient smokes about 2 to 3 cigarettes a day for the past 1 month, however, has been smoking more than a pack a day for over 60 years. No alcohol or illicit drug abuse. PAST SURGICAL HISTORY: [place] 3 weeks ago [place] [facility] [place] REVIEW OF SYSTEMS: Review of 12-organ systems other than mentioned in the history of present illness is negative. ALLERGIES: NKDA. FAMILY HISTORY: Noncontributory. PHYSICAL EXAMINATION: GENERAL: The patient is on 4 mcg/minute of Levophed and propofol drip, which was stopped now. VITAL SIGNS: Heart rate 71, oxygen saturation 100%. The patient is on pressure support with FiO2 of 60% and 5/5 setting. HEENT: Head and neck atraumatic. LUNGS: Clear to auscultation bilaterally. HEART: Regular rate and rhythm. S1 and S2 normal. ABDOMEN: Soft, nontender, nondistended. MUSCULOSKELETAL: No C/C/E. NEUROLOGIC: The patient was seen moving all extremities spontaneously. SKIN: Moist. PSYCHIATRIC: The patient is not following commands but moving spontaneously. LABORATORY DATA: INR 1.09, PTT 37.2. Of note, the patient was given Lovenox for DVT prophylaxis after ORIF surgery. ABG 7.32/44/348 on 100% FiO2 and PRVC. Sodium 139, potassium 4.5, chloride 107, carbon dioxide 23, BUN 44, creatinine 2.9, glucose 109. Troponin 0.16, up from 0.04. TSH 2.23, T4 of 1.43. Albumin 2.7. AST 35, ALT 38, total bilirubin 0.2. MEDICATIONS: In the hospital: Tylenol p.r.n., DuoNeb every 6 hours, meropenem, norepinephrine, Protonix, propofol, ceftriaxone, normal saline 60 mL/hour, vancomycin, and azithromycin. V/Q scan was of poor quality. No comments from radiologist as to low, intermediate, or high probability due to heterogenous perfusion without segmental, geographical, lobar abnormalities. Chest x-ray showed no acute pulmonary disease with some improved aeration. Head CT showed 1.7 x 2.5 x 2.7 cm hyperdense mass at the level of third ventricle. MRI was recommended. ASSESSMENT AND PLAN: This is an 87-year-old gentleman who presented with history of intermittent chest pain and who developed PEA arrest in ER with subsequent ROSC. CTH later revealed localized hyperdensity without extension, which was suspicious for ICH vs mass with internal bleeding. At present time, the patient is intubated and requiring ventilatory and vasopressor support. Nevertheless, he is doing very well on PST. Currently, he is on sedation vacation to see if attempt at extubation can be made. The patient is on Levophed 4 mcg/minute and we are trying to taper it down. The patient is afebrile, does not have leukocytosis, nevertheless, he is on antibiotics started last night to cover for possibility of septic shock. His troponin second set is slightly elevated, however, a bedside echocardiogram did not reveal severe left ventricular systolic dysfunction. Formal echo is in progress. Cardiology consult will be requested. Because of head imaging finding we will avoid AP and AC. We will continue to target euvolemia, euglycemia, normothermia, and oxygen saturation more than 90%. We will maintain blood glucose within 140 to 180 range according to NICE-SUGAR trial. The patient does have chronic kidney disease and it is unclear whether current spike in creatinine is a manifestation of acute kidney injury on top of chronic kidney disease or is his baseline. Nevertheless, we will monitor his urine output with a goal of having it around or more than 0.5 mL per kg per hour. We will maintain mean arterial pressure more than 65. We will maintain euvolemia, avoid hypo or hyperglycemia. We will try to avoid hyperchloremia. We will continue with deep vein thrombosis, gastrointestinal prophylaxis. We will continue with head of bed elevated more than 35 degrees, oral hygiene. Addendum: patient was successfully extubated ccm time 40 min Gagandeep Queen MD MTDCecilia
[2017-08-01] MEDS: Albuterol-Ipratrop 3 mg / 0.5 (3 ml) UD IH SCH ×4 (01:42→20:54)
[2017-08-01] MEDS: Insulin Lispro (humaLOG) LOW Coverage SC SCH ×3 (03:00→17:45)
[2017-08-01] MEDS: NOREPINEPHRINE BIT/0.9 % NACL 4 MG/250 ML BAG IV PRN (03:55)
--- NOTE | 2017-08-01 04:31 | CON ---
DATE: 07/31/2017 REASON FOR CONSULTATION AND FOLLOWUP: Cardiac arrest, status post CPR, possible CT. BRIEF CLINICAL HISTORY: An 87-year-old male with past medical history significant for hypertension, chronic kidney disease, chronic atrial fibrillation, recently fractured hip, status post open reduction and internal fixation, was on 30 mg of Lovenox at home, relatively immobile, history of some element of dementia also, brought unresponsive and pulseless, in cardiac arrest. As per family and the chart, the patient was complaining earlier of the chest pain and suddenly he collapsed, lost conscious, felt unresponsive. EMT was called, suggested to do the CPR. When the EMT got, the patient was arousable and subsequently transferred to [facility]. The patient later on became again pulseless, unresponsive, ACLS protocol carried out, epinephrine was given, and intubated. Now, the patient is sedated on mechanical vent, AFib with rapid ventricular rate. PAST MEDICAL HISTORY: As above, history of atrial fibrillation, hypertension, kidney disease, and dementia. PAST SURGICAL HISTORY: Three weeks ago, open reduction and internal fixation. SOCIAL HISTORY: A 60-pack a year of smoking. Socially drinks. No history of drug abuse. CURRENT MEDICATIONS: At home, before came to the hospital, the patient was taking enoxaparin 30 mg daily and amlodipine 5 mg daily. REVIEW OF SYSTEMS: As per HPI. ALLERGIES: NO KNOWN DRUG ALLERGY. PHYSICAL EXAMINATION: VITAL SIGNS: Temperature afebrile, heart rate 67, blood pressure 95/32. HEENT: PERRLA. Extraocular muscles intact. NECK: Supple. No carotid bruit or thyromegaly. CHEST: Clear to auscultation. HEART: S1 and S2 regular. ABDOMEN: Soft. EXTREMITIES: Clubbing and cyanosis negative. LABORATORY DATA: Blood workup: WBC 5, hemoglobin 7.6, hematocrit 23.9, platelet count 370. Chemistry shows sodium 130, potassium 4.5, chloride 107, CO2 of , anion gap of 14, BUN 44, creatinine 2.9. Troponin 0.16, not sure secondary to cardiopulmonary resuscitation, ACLS in the phase of chronic kidney disease. EKG shows AFib with rapid rate. IMPRESSION: Stage IV to V chronic kidney disease, status post cardiac arrest, status post cardiopulmonary resuscitation, status post respiratory failure, on vent, hypotension, anemia, status post open reduction and internal fixation three weeks ago, hypothermic. RECOMMENDATIONS: Continue vent management. Continue Levophed. The patient is sedated. We will monitor closely. Broad spectrum antibiotics. Rule out pneumonia. At this point, not sure how much is the down time. We will follow closely. Since the patient is dropping H and H, we will not suggest to start heparin now, but we will monitor the rising trend of the troponin. We will get to echo to assess LV function. The patient is hypotensive beta-gita at this time, but we will give 2.5 of verapamil if heart rate more than 130. Overall, the patient's condition is critical. Jail prognosis is extremely poor. We will follow. Thank you, Dr. Tristan, for providing us the opportunity in taking care of the patient, Alan Ceron. Overall, the patient's condition as mentioned is critical, multiorgan dysfunction. Jerald Conway MD
[2017-08-01 07:10] LABS: BASO # 0.04 K/mm3 (0.0-2.0); BASO % 0.5 % (0.0-3.0); EOS # 0.1 (0.0-0.7); EOS % 1.2 % (1.5-5.0); GRAN # 5.77 (1.4-6.5); GRAN % 67.2 % (50.0-68.0); HEMOGLOBIN 8.2 g/dL (14.0-18.0); LYMPH # 1.9 (1.2-3.4); LYMPH % 21.7 % (22.0-35.0); MEAN CELL VOLUME 84.6 fl (80.0-105.0); MEAN CORPUSCULAR HEMOGLOBIN 26.8 pg (25.0-35.0); MEAN CORPUSCULAR HGB CONC 31.7 g/dl (31.0-37.0); MONO # 0.8 (0.1-0.6); MONO % 9.4 % (1.0-6.0); RBC 3.06 10^6/uL (3.5-6.1); WHITE BLOOD COUNT 8.6 10^3/ul (4.5-11.0)
[2017-08-01 08:02] LABS: ALBUMIN 2.9 g/dL (3.0-4.8)
[2017-08-01 08:14] LABS: CALCIUM 8.3 mg/dL (8.4-10.5)
[2017-08-01] MEDS: Dextrose 5%/0.9% NS 1,000 ML IV SCH ×2 (09:32→17:43)
--- NOTE | 2017-08-01 09:40 | CON ---
DATE: 07/31/2017 REASON FOR CONSULTATION: Cardiac arrest, renal insufficiency. HISTORY OF PRESENT ILLNESS: An 87-year-old male, previously unknown to me, was brought to the emergency room because of complaint of chest pain intermittently for a day prior to presentation. Patient later became unresponsive at home. He was brought to the emergency room. In the emergency room, history of dementia was provided, recent hip fracture, internal fixation at [facility] chronic kidney disease, anemia. In the emergency room, patient was found to be hypotensive, blood pressure was as low as 81/46. He was found to be afebrile in fact he was hypothermic. Initial blood work showed WBC of 7.5 with a hemoglobin of 8.7, BUN of 46 and creatinine of 2.8. First set of troponin was 0.04. Subsequently, troponin became 0.16. Patient was intubated in the field. He is currently seeing in the ICU. He has just been extubated. He is unresponsive. PAST MEDICAL AND SURGICAL HISTORY: Chronic kidney disease, stage IV; hypertension, dementia, schizophrenia?, recent right hip fracture and internal fixation. FAMILY HISTORY: Noncontributory. SOCIAL HISTORY: Active smoker, no alcohol use, no IV drug abuse. ALLERGIES: NO KNOWN DRUG ALLERGIES. MEDICATIONS: At home, sodium bicarbonate, Lovenox and amlodipine. REVIEW OF SYSTEMS: Unavailable as the patient is unresponsive at present. PHYSICAL EXAMINATION: GENERAL: elderly male, lying in bed, in modest respiratory distress. VITAL SIGNS: Blood pressure 90/54, heart rate 67, respiratory rate 14, temperature 98.4. HEENT: Normocephalic, atraumatic, pupils sluggish, positive pallor. No icterus. NECK: Supple, no JVD. LUNGS: Bilateral equal air entry, bilateral distant breath sounds, bilateral rhonchi. CARDIAC: S1 and S2, regular rate and rhythm, no murmur, no rub. ABDOMEN: Soft, nondistended, nontender, bowel sounds present. EXTREMITIES: Trace lower extremity edema, right greater than left. INTAKE AND OUTPUT: 3958/320. LABORATORY DATA: WBC 5, hemoglobin 7.6, hematocrit 24, platelets 370. Sodium 139, potassium 4.5, chloride 107, CO2 of 23, BUN 44, creatinine 2.9, glucose 128, calcium 7.9, phosphorus 4.6, magnesium 1.9, troponin 0.16. Albumin 2.7. TSH 1.4. Urine toxicology, negative. ABG showing pH of 7.32, pO2 of and pCO2 of 44. Echocardiogram: Normal left ventricular function, EF 63%, normal left ventricular thickness.. Right ventricular systolic function is normal. Renal ultrasound: Right kidney 9.9 cm, left kidney 9 cm, no hydronephrosis. ASSESSMENT: 1. Altered mental status, cardiac arrest. 2. Chronic kidney disease, stage IV. 3. Recent right hip internal fixation. 4. Severe anemia. 5. Advanced dementia. PLAN: 1. Review of records from [facility] shows that his creatinine is actually better, his creatinine in the hospital over there was 5 at the time of presentation and 3.5 at the time of discharge. 2. He has chronic kidney disease, stage IV. 3. Appears to have anemia of chronic kidney disease, but need to rule out blood loss since he was on Lovenox. 4. Severe secondary hyperparathyroidism. 5. Advanced dementia. 6. Advanced age. 7. Overall prognosis is poor. 8. No plans for renal replacement therapy at this time. 9. Case discussed with Dr. Queen at bedside. 10. Case discussed with family members at bedside. More than 35 minutes spent in the care of this critically ill patient. Gayle Fernandez MD
[2017-08-01] MEDS: Meropenem 500 MG in Sodium Chloride 0.9% 50 ML IVPB SCH (10:00)
[2017-08-01] MEDS ORDERED: Enoxaparin 30 mg Syringe SC SCH (10:00)
--- NOTE | 2017-08-01 10:31 | CP.PCM.PN ---
Subjective - Date & Time of Evaluation Date of Evaluation: 08/01/17 Time of Evaluation: 09:40 - Subjective Subjective: Patient is now extubated, no fevers, not in distress but still occasionally agitated. Objective - Vital Signs/Intake and Output Vital Signs (last 24 hours): Temp Pulse Resp BP Pulse Ox 97.7 F 105 H 21 137/83 93 L 08/01/17 07:30 08/01/17 07:30 08/01/17 07:30 08/01/17 07:30 08/01/17 07:30 Intake and Output: 08/01/17 08/01/17 06:59 18:59 Intake Total 2134 Output Total 1320 Balance 814 - Medications Medications: Current Medications Acetaminophen (Tylenol 325mg Tab) 650 mg PO Q4 PRN PRN Reason: Fever >100.4 F Albuterol/Ipratropium (Duoneb 3 Mg/0.5 Mg (3 Ml) Ud) 3 ml IH [id number] JAIMIE Last Admin: 08/01/17 01:42 Dose: 3 ml NOREPINEPHRINE BIT/0.9 % NACL (Levophed 4 Mg/ 250 Ml Ns Premixed) 4 mg in 250 mls @ 15 mls/hr IV .[id number] PRN; Protocol; 4 MCG/MIN PRN Reason: TITRATE PER MD ORDER Last Admin: 08/01/17 03:55 Dose: 8 mcg/min, 30 mls/hr Propofol (Diprivan) 1,000 mg in 100 mls @ 2.381 mls/hr IV .Q24H PRN; Protocol; 5 MCG/KG/MIN PRN Reason: TITRATE PER MD ORDER Last Titration: 07/31/17 09:20 Dose: 0 mcg/kg/min, 0 mls/hr Meropenem 500 mg/ Sodium (Chloride) 50 mls @ 100 mls/hr IVPB Q12 JAIMIE PRN Reason: Protocol Stop: 08/07/17 09:01 Last Admin: 07/31/17 22:53 Dose: 100 mls/hr Dexmedetomidine HCl (Precedex 400mcg/100ml) 400 mcg in 100 mls @ 3.969 mls/hr IV .Q24H PRN; Protocol; 0.2 MCG/KG/HR PRN Reason: Symptoms of alcohol withdrawl Last Titration: 07/31/17 15:00 Dose: 0 mcg/kg/hr, 0 mls/hr Dextrose/Sodium Chloride (Dextrose 5%/0.9% Ns 1000 Ml) 1,000 mls @ 100 mls/hr IV .Q10H [facility] Last Admin: 07/31/17 22:59 Dose: 100 mls/hr Insulin Human Lispro (Humalog Low) 0 units SC Q6H JAIMIE PRN Reason: Protocol Last Admin: 08/01/17 03:00 Dose: Not Given Pantoprazole Sodium (Protonix Inj) 40 mg IVP DAILY [facility] Last Admin: 07/31/17 10:47 Dose: 40 mg Verapamil HCl (Verapamil Inj) 2.5 mg IVP Q6H PRN PRN Reason: for heart rate >130 - Labs Labs: 08/01/17 06:40 08/01/17 06:40 PT 12.4 SECONDS (9.4-12.5) 07/30/17 23:30 INR 1.09 (0.93-1.08) H 07/30/17 23:30 APTT 37.2 Seconds (25.1-36.5) H 07/30/17 23:30 - Constitutional Appears: No Acute Distress, Chronically Ill, Other (restless) - Head Exam Head Exam: NORMAL INSPECTION - ENT Exam ENT Exam: Mucous Membranes Moist - Neck Exam Neck Exam: absent: Meningismus - Respiratory Exam Respiratory Exam: Decreased Breath Sounds - Cardiovascular Exam Cardiovascular Exam: +S1, +S2 - GI/Abdominal Exam GI & Abdominal Exam: Soft. absent: Tenderness Assessment and Plan - Assessment and Plan (Free Text) Plan: Assessment systemic inflammatory response syndrome with ventilator-dependent respiratory failure after cardiorespiratory arrest, consider due to possible subarachnoid hemorrhage / CVA R/O acute myocardial infarction, unlikely aspiration pneumonia chronic renal failure HTN dementia significant smoking history S/P ORIF Plan Patient has been given Vancomycin, and Zithromax and is on Merrem day 2; blood cx are negative, PCT is only 0.28 making bacterial sepsis unlikely reviewed CXR which is vascular congestion will d/c antibiotics and observe follow up further Cardiology and Neurology recommendations
--- NOTE | 2017-08-01 10:55 | CP.PCM.PCO ---
Addendum Addendum: Psychiatric assessment dictated, please refer to dictation ID #[id number]. Recommend treatment team avoid geodon IM due to black box warning of qt prolongation in the elderly. Although Abilify, clozapine, zyprexa, risperdal and invega generally have less of a tendency to prolong qt than Haldol, these medications do not have IM or IV prn formulations for agitation. This tendency to prolong qt is dose related so as always, use antipsychotics conservatively in demented, elderly patients with multiple serious medical issues. 08/01/17 10:39
--- NOTE | 2017-08-01 12:01 | CP.PCM.PN ---
<Nixon Perkins - Last Filed: 08/01/17 18:21> Subjective - Date & Time of Evaluation Date of Evaluation: 08/01/17 Time of Evaluation: 08:30 - Subjective Subjective: IM Progress Note for Hospitalist Service Patient seen and examined at bedside. Overnight, had an acute episode of agitation requiring geodone. This AM, remains mildly delirious, repeating the same few words unintelligibly, and attempting to swat away staff at bedside. Remains extubated, being weaned off levophed. Objective - Vital Signs/Intake and Output Vital Signs (last 24 hours): Temp Pulse Resp BP Pulse Ox 97.7 F 105 H 21 137/83 93 L 08/01/17 07:30 08/01/17 07:30 08/01/17 07:30 08/01/17 07:30 08/01/17 07:30 Intake and Output: 08/01/17 08/01/17 06:59 18:59 Intake Total 2134 200 Output Total 1320 Balance 814 200 - Medications Medications: Current Medications Acetaminophen (Tylenol 325mg Tab) 650 mg PO Q4 PRN PRN Reason: Fever >100.4 F Albuterol/Ipratropium (Duoneb 3 Mg/0.5 Mg (3 Ml) Ud) 3 ml IH [id number] JAIMIE Last Admin: 08/01/17 08:23 Dose: 3 ml Aspirin (Ecotrin) 81 mg PO DAILY JAIMIE Enoxaparin Sodium (Lovenox) 30 mg SC DAILY JAIMIE PRN Reason: Protocol Last Admin: 08/01/17 09:59 Dose: 30 mg Haloperidol (Haldol) 0.25 mg PO Q4 PRN; Protocol PRN Reason: Agitation NOREPINEPHRINE BIT/0.9 % NACL (Levophed 4 Mg/ 250 Ml Ns Premixed) 4 mg in 250 mls @ 15 mls/hr IV .[id number] PRN; Protocol; 4 MCG/MIN PRN Reason: TITRATE PER MD ORDER Last Titration: 08/01/17 09:38 Dose: 2 mcg/min, 7.5 mls/hr Propofol (Diprivan) 1,000 mg in 100 mls @ 2.381 mls/hr IV .Q24H PRN; Protocol; 5 MCG/KG/MIN PRN Reason: TITRATE PER MD ORDER Last Titration: 07/31/17 09:20 Dose: 0 mcg/kg/min, 0 mls/hr Dexmedetomidine HCl (Precedex 400mcg/100ml) 400 mcg in 100 mls @ 3.969 mls/hr IV .Q24H PRN; Protocol; 0.2 MCG/KG/HR PRN Reason: Symptoms of alcohol withdrawl Last Titration: 07/31/17 15:00 Dose: 0 mcg/kg/hr, 0 mls/hr Dextrose/Sodium Chloride (Dextrose 5%/0.9% Ns 1000 Ml) 1,000 mls @ 100 mls/hr IV .Q10H JAIMIE Last Admin: 08/01/17 09:32 Dose: 100 mls/hr Insulin Human Lispro (Humalog Low) 0 units SC Q6H JAIMIE PRN Reason: Protocol Last Admin: 08/01/17 09:33 Dose: Not Given Metoprolol Tartrate (Lopressor) 25 mg PO BID JAIMIE Pantoprazole Sodium (Protonix Inj) 40 mg IVP DAILY [facility] Last Admin: 08/01/17 09:59 Dose: 40 mg Verapamil HCl (Verapamil Inj) 2.5 mg IVP Q6H PRN PRN Reason: for heart rate >130 - Labs Labs: 08/01/17 06:40 08/01/17 06:40 PT 12.4 SECONDS (9.4-12.5) 07/30/17 23:30 INR 1.09 (0.93-1.08) H 07/30/17 23:30 APTT 37.2 Seconds (25.1-36.5) H 07/30/17 23:30 - Constitutional Appears: Non-toxic, Confused, Chronically Ill - Head Exam Head Exam: ATRAUMATIC, NORMAL INSPECTION, NORMOCEPHALIC - Eye Exam Eye Exam: Normal appearance. absent: Conjunctival injection, Scleral icterus Pupil Exam: absent: Irregular, Unequal - ENT Exam ENT Exam: Mucous Membranes Moist - Neck Exam Neck Exam: Normal Inspection - Respiratory Exam Respiratory Exam: Rhonchi (bibasilar ronchi), NORMAL BREATHING PATTERN. absent : Accessory Muscle Use, Decreased Breath Sounds, Rales, Wheezes - Cardiovascular Exam Cardiovascular Exam: Irregular Rhythm, +S1, +S2. absent: Bradycardia, Tachycardia, REGULAR RHYTHM, JVD, RRR, +S4 - GI/Abdominal Exam GI & Abdominal Exam: Soft, Normal Bowel Sounds. absent: Distended, Firm, Guarding, Rigid, Tenderness (patient unable to articulate pain, but no reaction suggestive on pain on palpation), Diminished Bowel Sounds, Hypoactive Bowel Sounds - Extremities Exam Extremities Exam: Normal Capillary Refill, Pedal Edema (right foot and ankle > left, trace in left, +2 in right foot and ankle, none bilaterally above SCDs) - Neurological Exam Additional comments: awake but does not appear fully alert, stares into distance repeating same few words, occasionally attempts to swat away staff, wearing mitts, few spontaneous movements of extremities noted during exam Assessment and Plan - Assessment and Plan (Free Text) Assessment: This is an 87 yo male with PMH of HTN, CKD Stg IV, ORIF 3 weeks ago, and dementia brought in by EMS after an episode of unresponsiveness and possible cardiac arrest at home, s/p cardiac arrest in the ED, ROSC achieved after 1 dose of epi. Was intubated after ED code, now day 2 s/p extubation, being weaned off of Levophed. 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 representative, would start baby aspirin, low-dose beta-gita, lovenox 30u SC daily; ASA and Lovenox on hold currently -Hypotension improving, weaning levophed, now on 2 mcg/min, goal is MAP > 65 -Extubated, protecting airway -as per ID, procal negative and cx negative thus far, can d/c abx and monitor, less likely aspiration PNA -Hgb improved from 7.6 to 8.2, continue to monitor, transfuse if Hgb < 7 or dropping with signs of acute hemorrage (hemodynamic instability, 2) Hemorrhagic stroke -CTH shows 1.7 x 2.5 x 1.7 hemorrhage at level of 3rd vent (patient had a hx of hemorrhagic stroke 3 years ago as per family) -Neuro following, appreciate all recs: recs repeat head CT since MRI unreliable due to all motion artifacting, if stable/resorbing can start heparin subq for DVT ppx, hold off on other anticoagulation/antiplatelets -family reports hx of hemorrhagic stroke 3 yrs prior, but as per neuro, would have been resorbed by now, findings on scans represent new event 3) TESSY on CKD -Cr worsened to 3.4 today (was 2.9) -as per Nephro, baseline is CKD Stage IV, improved as compared to 3 weeks prior (while at [facility]), no indication for renal replacement therapy at this time -Nephro recs: lasix 40mg IV daily, IVF 60cc/hr, avoid nephrotoxins, check iron stores -strict I's and O's, daily weights 4) Delirium overlying dementia -strict day/night cycle as feasible -psych consulted, recs cautious use of antipsychotics given ADR profile in the elderly -at high risk for delirium due to hx dementia, severity of illness, ICU placement, elderly population 5) Hx COPD -continue duonebs -V/q negative for PE -maintain SaO2 > 90%, avoid overoxygenation in COPD pt to prevent suppression of respiratory drive Dispo: ICU, pending weaning levophed drip fully, pending repeat head CT to determine if start on Heparin for DVT ppx, pending assessment of degree of mental status recovery FEN: NPO, NS 60cc/hr Access: Peripheral IV, TLC (Right IJ), NGT Consults: Nephro, ID, Psych, ICU, Cardio, Neuro Ppx: Protonix for GI, pending possible heparin sc for DVT (depending on repeat head CT findings) Patient seen, reviewed, and discussed with attending, Dr. Agosto. <Antonio Agosto - Last Filed: 08/03/17 14:34> Objective - Vital Signs/Intake and Output Vital Signs (last 24 hours): Temp Pulse Resp BP Pulse Ox 98 F 73 18 122/62 94 L 08/03/17 12:00 08/03/17 14:00 08/03/17 12:00 08/03/17 12:00 08/03/17 06:00 Intake and Output: 08/03/17 08/03/17 06:59 18:59 Intake Total 0 632 Output Total 1000 Balance -1000 632 - Medications Medications: Current Medications Acetaminophen (Tylenol 325mg Tab) 650 mg PO Q4 PRN PRN Reason: Fever >100.4 F Albuterol/Ipratropium (Duoneb 3 Mg/0.5 Mg (3 Ml) Ud) 3 ml IH [id number] JAIMIE Last Admin: 08/03/17 13:21 Dose: 3 ml Aspirin (Ecotrin) 81 mg PO DAILY [facility] Last Admin: 08/01/17 13:15 Dose: Not Given Doxercalciferol (Hectorol) 0.5 mcg NG DAILY [facility] Last Admin: 08/03/17 10:13 Dose: Not Given Enoxaparin Sodium (Lovenox) 30 mg SC DAILY JAIMIE PRN Reason: Protocol Last Admin: 08/01/17 09:59 Dose: 30 mg Haloperidol (Haldol) 0.25 mg PO Q4 PRN; Protocol PRN Reason: Agitation Valproate Sodium 500 mg/ (Sodium Chloride) 105 mls @ 100 mls/hr IVPB Q12 JAIMIE Last Admin: 08/03/17 10:29 Dose: 100 mls/hr Vancomycin HCl (Vancomycin 1gm) 1 gm in 250 mls @ 167 mls/hr IVPB DAILY JAIMIE PRN Reason: Protocol Last Admin: 08/03/17 10:12 Dose: 167 mls/hr Dextrose (Dextrose 5% In Water 1000 Ml) 1,000 mls @ 60 mls/hr IV .[id number] [facility] Last Admin: 08/03/17 12:57 Dose: 60 mls/hr Insulin Human Lispro (Humalog Low) 0 units SC 0000,0600,1200,1800 JAIMIE PRN Reason: Protocol Last Admin: 08/03/17 12:21 Dose: Not Given Metoprolol Tartrate (Lopressor) 5 mg IVP Q6H [facility] Last Admin: 08/03/17 10:13 Dose: 5 mg Pantoprazole Sodium (Protonix Inj) 40 mg IVP DAILY [facility] Last Admin: 08/03/17 10:13 Dose: 40 mg Verapamil HCl (Verapamil Inj) 2.5 mg IVP Q6H PRN PRN Reason: for heart rate >130 - Labs Labs: 08/03/17 05:45 08/03/17 05:45 PT 12.4 SECONDS (9.4-12.5) 07/30/17 23:30 INR 1.09 (0.93-1.08) H 07/30/17 23:30 APTT 37.2 Seconds (25.1-36.5) H 07/30/17 23:30 Attending/Attestation - Attestation I have personally seen and examined this patient.: Yes I have fully participated in the care of the patient.: Yes I have reviewed all pertinent clinical information, including history, physical exam and plan: Yes Notes (Text): 08/03/17 14:26 attending note; Patient seen and examined with resident in ICU. Patient is a 87-year-old [place] male admitted post cardiac arrest brief CPR. Patient has history of chronic kidney disease, right ORIF, questionable mental disorder. Currently patient is awake but confused. Agitated at times. On IV Levophed drip. Monitor blood pressure closely. Elevated troponin; status post CPR. Monitor closely with graphic artist. questionable intracranial hemorrhage; neurology evaluation appreciated.head CT showed colloid cysts versus hemorrhage. No new changes. Chronic kidney disease; case discussed with heavy equipment diesel mechanic in detail. As per heavy equipment diesel mechanic his baseline creatinine was 4-5 at [facility] few weeks ago. monitor urine output. Agitation; possible history of schizophrenia versus dementia. Monitor closely. 08/03/17 14:33
--- NOTE | 2017-08-01 12:57 | RAD ---
HISTORY: ng tube placement COMPARISON: Yesterday FINDINGS: LUNGS: Chronic interstitial change or alveolar edema is once again appreciated. This may be slightly decreased. There is a new NG tube identified with its tip in the mid trachea. This should be advanced. Previously noted endotracheal tube appears to been removed. PLEURA: Small bilateral effusions are seen. No pneumothorax. CARDIOVASCULAR: Slightly improved congestion. OSSEOUS STRUCTURES: No significant abnormalities. VISUALIZED UPPER ABDOMEN: Normal. OTHER FINDINGS: Right internal jugular vein line is stable. IMPRESSION: NG tube in the mid trachea. This should be advanced. Slight improvement in vascular congestion. This case was placed and flagged into the critical result folder.
[2017-08-01] MEDS ORDERED: Dextrose 5%/0.9% NS 1,000 ML IV SCH ×2 (13:54→17:26)
--- NOTE | 2017-08-01 14:16 | PN ---
DATE: 08/01/2017 REASON FOR CONSULTATION AND FOLLOWUP: Status post cardiac catheterization, status post CPR, intubated, now successfully extubated, altered mental status. SUBJECTIVE: The patient is lying flat on the bed, soft Evangeline restraint and both hands are covered with gloves. Not oriented and confused. OBJECTIVE: GENERAL: Lying flat in the bed. VITAL SIGNS: As follows: Temperature afebrile. Heart rate 105, blood pressure 137/83. HEENT: PERRLA. Extraocular muscles intact. NECK: Supple. No carotid bruit or thyromegaly. CHEST: Clear to auscultation. HEART: S1 and S2 regular. ABDOMEN: Soft. EXTREMITIES: Clubbing and cyanosis negative. LABORATORY DATA: Telemetry shows normal sinus with APCs. IMPRESSION: Paroxysmal atrial fibrillation, admitting EKG with atrial fibrillation, now the patient is in sinus with APCs; altered mental status; anemia; respiratory failure; cardiac arrest; intubated, now successfully extubated; protein calorie malnutrition, moderate, which was not present on admission; borderline troponin positive on admission, not sure secondary to cardiopulmonary resuscitation to myocardial infarction; acute kidney injury; chronic renal insufficiency; stage IV to V chronic kidney disease. RECOMMENDATIONS: The patient is not a candidate to go to the rn cardiac cath because of the overall mental status. We will treat conservatively. Plan is to put the NG tube and feeding through the NG tube as well as some medication through the NG tube is being given. We will start beta-gita as per the patient's heart rate is tolerated and also, we will start deep vein thrombosis prophylaxis, low dose as hemoglobin and hematocrit remains stable and is tolerated. I discussed with nursing staff taking care of the patient as well as Dr. Queen. We will put baby aspirin also and put Lovenox low dose 30 subcu daily and monitor H and H. We will follow with you. Overall, the patient's condition is critical. Long-term prognosis is extremely guarded. We will repeat EKG. Once the NG tube is placed, we will start nutrition because of hypoproteinemia and hypoalbuminemia. Jerald Conway MD [facility] # [id number]
[2017-08-01 16:13] LABS: IRON 22 ug/dL (45-180)
[2017-08-01 16:23] LABS: % IRON SATURATION 8 % (20-55); TOTAL IRON BINDING CAPACITY 271 ug/dL (261-462)
--- NOTE | 2017-08-01 16:31 | CP.CCUPN ---
<Kevin Melo - Last Filed: 08/01/17 15:57> CCU Subjective - Physician Review Subjective (Free Text): Patient seen and examined at bedside. ROS not obtained due to patient's AMS. CCU Objective - Vital Signs / Intake & Output Vital Signs (Last 4 hours): Vital Signs Temp Pulse Resp BP Pulse Ox 08/01/17 13:07 96.4 F L 93 H 93 L 08/01/17 13:05 96.6 F L 91 H 93 L 08/01/17 13:00 96.4 F L 90 21 102/39 L 93 L 08/01/17 12:45 96.6 F L 84 18 100/45 L 93 L 08/01/17 12:30 96.8 F L 90 21 100/37 L 95 08/01/17 12:16 96.8 F L 103 H 93 L 08/01/17 12:09 96.8 F L 98 H 93 L 08/01/17 12:05 96.8 F L 95 H 93 L 08/01/17 12:01 96.8 F L 94 H 20 109/80 94 L 08/01/17 12:00 96.8 F L 98 H 22 94 L Intake and Output (Last 8hrs): Intake & Output 08/01/17 08/01/17 08/01/17 06:59 14:59 22:59 Intake Total 340 229 Output Total 1000 Balance -660 229 Weight 80.059 kg Intake: IV 290 229 Right Internal Jugular 100 Other 50 Output: Urine 1000 Urethral (Yan) 1000 Other: # Bowel Movements 0 - Physical Exam Head: Positive for: Atraumatic, Normocephalic Pupils: Positive for: PERRL Extroacular Muscles: Positive for: EOMI Conjunctiva: Positive for: Normal Ears: Positive for: NORMAL TM Mouth: Positive for: Moist Mucous Membranes Pharnyx: Positive for: Normal Neck: Positive for: Normal Range of Motion Respiratory/Chest: Positive for: Good Air Exchange, Rhonchi (Rhonchi bilaterally. ). Negative for: Clear to Auscultation Cardiovascular: Positive for: Irregular Rhythm (Irregularly irregular. ) Abdomen: Negative for: Tenderness, Distention, Peritoneal Signs Back: Positive for: Normal Inspection Upper Extremity: Positive for: Normal Inspection. Negative for: Cyanosis, Edema Lower Extremity: Positive for: Normal Inspection. Negative for: Edema Skin: Positive for: Warm, Dry, Normal Color. Negative for: Rashes Psychiatric: Positive for: Alert, Agitated, Lethargic - Medications Active Medications: Active Medications Generic Name Dose Route Start Last Admin Trade Name Freq PRN Reason Stop Dose Admin Acetaminophen 650 mg 07/31/17 02:36 Tylenol 325mg Tab PO Q4 PRN Fever >100.4 F Albuterol/Ipratropium 3 ml 07/31/17 08:00 08/01/17 14:35 Duoneb 3 Mg/0.5 Mg (3 Ml) Ud IH 3 ml [id number] JAIMIE Administration Aspirin 81 mg 08/01/17 10:00 08/01/17 13:15 Ecotrin PO Not Given DAILY JAIMIE Doxercalciferol 0.5 mcg 08/01/17 14:00 Hectorol NG DAILY JAIMIE Enoxaparin Sodium 30 mg 08/01/17 10:00 08/01/17 09:59 Lovenox SC 30 mg DAILY JAIMIE Administration Protocol Furosemide 40 mg 08/01/17 14:00 Lasix IV DAILY JAIMIE Haloperidol 0.25 mg 08/01/17 10:38 Haldol PO Q4 PRN Agitation Protocol Dexmedetomidine HCl 400 mcg in 100 mls @ 3.969 mls/hr 07/31/17 11:16 15:00 Precedex 400mcg/100ml IV 0 mcg/kg/hr .Q24H PRN 0 mls/hr Symptoms of alcohol withdrawl Titration Protocol 0.2 MCG/KG/HR Dextrose/Sodium Chloride 1,000 mls @ 60 mls/hr 08/01/17 13:54 08/01/17 14:02 Dextrose 5%/0.9% Ns 1000 Ml IV 60 mls/hr .[id number] JAIMIE Administration Insulin Human Lispro 0 units 07/31/17 03:00 08/01/17 09:33 Humalog Low SC Not Given Q6H JAIMIE Protocol Metoprolol Tartrate 25 mg 08/01/17 10:00 08/01/17 13:14 Lopressor PO Not Given BID JAIMIE Pantoprazole Sodium 40 mg 07/31/17 10:00 08/01/17 09:59 Protonix Inj IVP 40 mg DAILY JAIMIE Administration Verapamil HCl 2.5 mg 07/31/17 17:03 Verapamil Inj IVP Q6H PRN for heart rate >130 - Patient Studies Lab Studies: Lab Studies 08/01/17 08/01/17 08/01/17 Range/Units 11:34 07:25 06:40 WBC (4.5-11.0) 10^3/ul RBC (3.5-6.1) 10^6/uL Hgb (14.0-18.0) g/dL Hct (42.0-52.0) % MCV (80.0-105.0) fl MCH (25.0-35.0) pg MCHC (31.0-37.0) g/dl RDW (11.5-14.5) % Plt Count (120.0-450.0) 10^3/uL MPV (7.0-11.0) fl Gran % (50.0-68.0) % Lymph % (Auto) (22.0-35.0) % [place] % (Auto) (1.0-6.0) % Eos % (Auto) (1.5-5.0) % Baso % (Auto) (0.0-3.0) % Gran # (1.4-6.5) Lymph # (Auto) (1.2-3.4) [place] # (Auto) (0.1-0.6) Eos # (Auto) (0.0-0.7) Baso # (Auto) (0.0-2.0) K/mm3 Sodium 145 (132-148) mmol/L Potassium 4.5 (3.6-5.0) mmol/L Chloride 113 H (98-107) mmol/L Carbon Dioxide 21 (21-33) mmol/L Anion Gap 16 (10-20) BUN 45 H (7-21) mg/dL Creatinine 3.4 H (0.8-1.5) mg/dl Est GFR ( Amer) 21 Est GFR (Non-Af Amer) 17 POC Glucose (mg/dL) 133 H 137 H (65-110) mg/dL Random Glucose 133 H (70-110) mg/dL Hemoglobin A1c (4.2-6.5) % Calcium 8.3 L (8.4-10.5) mg/dL Phosphorus 4.4 (2.5-4.5) mg/dL Magnesium 1.9 (1.7-2.2) mg/dL Total Bilirubin 0.3 (0.2-1.3) mg/dL AST 27 (17-59) U/L ALT 32 (7-56) U/L Alkaline Phosphatase 222 H (38-126) U/L Total Protein 5.8 (5.8-8.3) g/dL Albumin 2.9 L (3.0-4.8) g/dL Globulin 2.9 gm/dL Albumin/Globulin Ratio 1.0 L (1.1-1.8) Urine Opiates Screen (NEGATIVE) Urine Methadone Screen (NEGATIVE) Ur Barbiturates Screen (NEGATIVE) Ur Phencyclidine Scrn (NEGATIVE) Ur Amphetamines Screen (NEGATIVE) U Benzodiazepines Scrn (NEGATIVE) U Oth Cocaine Metabols (NEGATIVE) U Cannabinoids Screen (NEGATIVE) 08/01/17 07/31/17 07/31/17 Range/Units 06:40 22:02 18:50 WBC 8.6 D (4.5-11.0) 10^3/ul RBC 3.06 L (3.5-6.1) 10^6/uL Hgb 8.2 L (14.0-18.0) g/dL Hct 25.9 L (42.0-52.0) % MCV 84.6 (80.0-105.0) fl MCH 26.8 (25.0-35.0) pg MCHC 31.7 (31.0-37.0) g/dl RDW 19.0 H (11.5-14.5) % Plt Count 380 (120.0-450.0) 10^3/uL MPV 10.0 (7.0-11.0) fl Gran % 67.2 (50.0-68.0) % Lymph % (Auto) 21.7 L (22.0-35.0) % [place] % (Auto) 9.4 H (1.0-6.0) % Eos % (Auto) 1.2 L (1.5-5.0) % Baso % (Auto) 0.5 (0.0-3.0) % Gran # 5.77 (1.4-6.5) Lymph # (Auto) 1.9 (1.2-3.4) [place] # (Auto) 0.8 H (0.1-0.6) Eos # (Auto) 0.1 (0.0-0.7) Baso # (Auto) 0.04 (0.0-2.0) K/mm3 Sodium (132-148) mmol/L Potassium (3.6-5.0) mmol/L Chloride (98-107) mmol/L Carbon Dioxide (21-33) mmol/L Anion Gap (10-20) BUN (7-21) mg/dL Creatinine (0.8-1.5) mg/dl Est GFR ( Amer) Est GFR (Non-Af Amer) POC Glucose (mg/dL) 132 H (65-110) mg/dL Random Glucose (70-110) mg/dL Hemoglobin A1c (4.2-6.5) % Calcium (8.4-10.5) mg/dL Phosphorus (2.5-4.5) mg/dL Magnesium (1.7-2.2) mg/dL Total Bilirubin (0.2-1.3) mg/dL AST (17-59) U/L ALT (7-56) U/L Alkaline Phosphatase (38-126) U/L Total Protein (5.8-8.3) g/dL Albumin (3.0-4.8) g/dL Globulin gm/dL Albumin/Globulin Ratio (1.1-1.8) Urine Opiates Screen Negative (NEGATIVE) Urine Methadone Screen Negative (NEGATIVE) Ur Barbiturates Screen Negative (NEGATIVE) Ur Phencyclidine Scrn Negative (NEGATIVE) Ur Amphetamines Screen Negative (NEGATIVE) U Benzodiazepines Scrn Negative (NEGATIVE) U Oth Cocaine Metabols Negative (NEGATIVE) U Cannabinoids Screen Negative (NEGATIVE) 07/31/17 07/31/17 07/31/17 Range/Units 16:39 14:36 06:00 WBC (4.5-11.0) 10^3/ul RBC (3.5-6.1) 10^6/uL Hgb (14.0-18.0) g/dL Hct (42.0-52.0) % MCV (80.0-105.0) fl MCH (25.0-35.0) pg MCHC (31.0-37.0) g/dl RDW (11.5-14.5) % Plt Count (120.0-450.0) 10^3/uL MPV (7.0-11.0) fl Gran % (50.0-68.0) % Lymph % (Auto) (22.0-35.0) % [place] % (Auto) (1.0-6.0) % Eos % (Auto) (1.5-5.0) % Baso % (Auto) (0.0-3.0) % Gran # (1.4-6.5) Lymph # (Auto) (1.2-3.4) [place] # (Auto) (0.1-0.6) Eos # (Auto) (0.0-0.7) Baso # (Auto) (0.0-2.0) K/mm3 Sodium (132-148) mmol/L Potassium (3.6-5.0) mmol/L Chloride (98-107) mmol/L Carbon Dioxide (21-33) mmol/L Anion Gap (10-20) BUN (7-21) mg/dL Creatinine (0.8-1.5) mg/dl Est GFR ( Amer) Est GFR (Non-Af Amer) POC Glucose (mg/dL) 119 H 86 (65-110) mg/dL Random Glucose (70-110) mg/dL Hemoglobin A1c 5.4 (4.2-6.5) % Calcium (8.4-10.5) mg/dL Phosphorus (2.5-4.5) mg/dL Magnesium (1.7-2.2) mg/dL Total Bilirubin (0.2-1.3) mg/dL AST (17-59) U/L ALT (7-56) U/L Alkaline Phosphatase (38-126) U/L Total Protein (5.8-8.3) g/dL Albumin (3.0-4.8) g/dL Globulin gm/dL Albumin/Globulin Ratio (1.1-1.8) Urine Opiates Screen (NEGATIVE) Urine Methadone Screen (NEGATIVE) Ur Barbiturates Screen (NEGATIVE) Ur Phencyclidine Scrn (NEGATIVE) Ur Amphetamines Screen (NEGATIVE) U Benzodiazepines Scrn (NEGATIVE) U Oth Cocaine Metabols (NEGATIVE) U Cannabinoids Screen (NEGATIVE) Laboratory Results - last 24 hr 0407/31/17 07/31/17 06:00 14:36 16:39 WBC RBC Hgb Hct MCV MCH MCHC RDW Plt Count MPV Gran % Lymph % (Auto) [place] % (Auto) Eos % (Auto) Baso % (Auto) Gran # Lymph # (Auto) [place] # (Auto) Eos # (Auto) Baso # (Auto) Sodium Potassium Chloride Carbon Dioxide Anion Gap BUN Creatinine Est GFR ( Amer) Est GFR (Non-Af Amer) POC Glucose (mg/dL) 86 119 H Random Glucose Hemoglobin A1c 5.4 Calcium Phosphorus Magnesium Total Bilirubin AST ALT Alkaline Phosphatase Total Protein Albumin Globulin Albumin/Globulin Ratio Urine Opiates Screen Urine Methadone Screen Ur Barbiturates Screen Ur Phencyclidine Scrn Ur Amphetamines Screen U Benzodiazepines Scrn U Oth Cocaine Metabols U Cannabinoids Screen 07/31/17 07/31/17 08/01/17 18:50 22:02 06:40 WBC 8.6 D RBC 3.06 L Hgb 8.2 L Hct 25.9 L MCV 84.6 MCH 26.8 MCHC 31.7 RDW 19.0 H Plt Count 380 MPV 10.0 Gran % 67.2 Lymph % (Auto) 21.7 L [place] % (Auto) 9.4 H Eos % (Auto) 1.2 L Baso % (Auto) 0.5 Gran # 5.77 Lymph # (Auto) 1.9 [place] # (Auto) 0.8 H Eos # (Auto) 0.1 Baso # (Auto) 0.04 Sodium Potassium Chloride Carbon Dioxide Anion Gap BUN Creatinine Est GFR ( Amer) Est GFR (Non-Af Amer) POC Glucose (mg/dL) 132 H Random Glucose Hemoglobin A1c Calcium Phosphorus Magnesium Total Bilirubin AST ALT Alkaline Phosphatase Total Protein Albumin Globulin Albumin/Globulin Ratio Urine Opiates Screen Negative Urine Methadone Screen Negative Ur Barbiturates Screen Negative Ur Phencyclidine Scrn Negative Ur Amphetamines Screen Negative U Benzodiazepines Scrn Negative U Oth Cocaine Metabols Negative U Cannabinoids Screen Negative 08/01/17 08/01/17 08/01/17 06:40 07:25 11:34 WBC RBC Hgb Hct MCV MCH MCHC RDW Plt Count MPV Gran % Lymph % (Auto) [place] % (Auto) Eos % (Auto) Baso % (Auto) Gran # Lymph # (Auto) [place] # (Auto) Eos # (Auto) Baso # (Auto) Sodium 145 Potassium 4.5 Chloride 113 H Carbon Dioxide 21 Anion Gap 16 BUN 45 H Creatinine 3.4 H Est GFR ( Amer) 21 Est GFR (Non-Af Amer) 17 POC Glucose (mg/dL) 137 H 133 H Random Glucose 133 H Hemoglobin A1c Calcium 8.3 L Phosphorus 4.4 Magnesium 1.9 Total Bilirubin 0.3 AST 27 ALT 32 Alkaline Phosphatase 222 H Total Protein 5.8 Albumin 2.9 L Globulin 2.9 Albumin/Globulin Ratio 1.0 L Urine Opiates Screen Urine Methadone Screen Ur Barbiturates Screen Ur Phencyclidine Scrn Ur Amphetamines Screen U Benzodiazepines Scrn U Oth Cocaine Metabols U Cannabinoids Screen EKG/Cardiology Studies: Cardiology / EKG Studies 08/01/17 09:37 ELECTROCARDIOGRAM Routine Comment: Reason For Exam: paf PRE OP:: N Does Patient Have a Pacemaker?: No 08/02/17 07:00 ELECTROCARDIOGRAM Routine Comment: Reason For Exam: CAD, PAF PRE OP:: N Does Patient Have a Pacemaker?: No Fingerstick Blood Sugar Results: 180 Review of Systems - Review of Systems Systems not reviewed;Unavailable: Altered Mental Status Assessment/Plan - Assessment and Plan (Free Text) Assessment: 87yo male PMHx HTN, Kidney disease? ORIF 3 weeks ago, dementia brought in by EMS after an episode of unresponsiveness s/p cardiac arrest in the ED, ROSC achieved after 1 dose of epi and subsequently intubated, sedated and placed on Levophed ggt. Patient currently extubated and off levophed drip. Neuro -Hx of dementia -CTH shows 1.7 x 2.5 x 1.7 hemorrhage at level of 3rd vent (patient had a hx of hemorrhagic stroke 3 years ago as per family) -Neuro consulted for recs -Psych consulted for recs regarding possible delirium -Continue with HoB above 30 degrees -Continue with aspiration precautions -Repeat CT head to check for absorption of hemorrhage Cardio -EKG on admission showed Afib with RVR -Trop .o4 --> .16 -Levophed gtt discontinued -maintain MAP > 65mmHg -Cardio consulted for recs Pulm -Currently extubated -Duoneb q6 -VQ scan reviewed -Maintain spO2 above 90% GI -NPO -Continue with GI ppx Nephro -Cr currently 3.4 which is near patient's baseline [place] [facility] [place] -NS @ 60 -monitor electrolytes -Monitor strict Is and Os -Nephro consulted -Maintain euvolemia ID -Afebrile and without leukocytosis -Antibiotics have been discontinued as procal is low and radioimaging shows vascular congestion -Will continue to monitor Endo -RISS low -Accuchecks -maintain euglycemia blood sugars 140-180 Heme: -Monitor H&H -No active signs of bleeding -SCD for DVT prophylaxis <Gagandeep Queen - Last Filed: 08/01/17 17:57> CCU Objective - Vital Signs / Intake & Output Vital Signs (Last 4 hours): Vital Signs Temp Pulse Resp BP Pulse Ox 08/01/17 17:45 91 H 08/01/17 17:15 96.6 F L 96 H 29 H 60/37 L 96 08/01/17 17:12 96.6 F L 90 96 08/01/17 17:07 96.8 F L 93 H 96 08/01/17 17:00 108/40 L 08/01/17 16:59 96.6 F L 94 H 22 97 08/01/17 16:53 96.6 F L 94 H 94 L 08/01/17 16:32 96.6 F L 92 H 33 H 110/46 L 96 08/01/17 16:21 96.6 F L 91 H 96 08/01/17 16:20 105 H 08/01/17 16:17 96.6 F L 82 23 114/58 L 93 L 08/01/17 16:04 96.6 F L 94 H 94 L 08/01/17 16:03 96.6 F L 98 H 94 L 08/01/17 16:00 96.6 F L 96 H 24 112/25 L 95 08/01/17 15:58 92 H 08/01/17 15:52 96.6 F L 98 H 94 L 08/01/17 15:46 96.6 F L 92 H 94 L 08/01/17 15:45 96.6 F L 91 H 55 H 101/51 L 94 L 08/01/17 15:31 96.6 F L 91 H 17 120/87 95 08/01/17 15:27 96.6 F L 90 94 L 04/28/18 15:25 96.4 F L 96 H 94 L 08/01/17 15:15 96.4 F L 97 H 27 H 97/44 L 95 08/01/17 15:13 96.4 F L 86 94 L 08/01/17 15:00 96.4 F L 87 21 97/47 L 95 08/01/17 14:45 96.4 F L 85 15 117/85 95 08/01/17 14:30 96.3 F L 82 20 111/59 L 100 08/01/17 14:21 96.3 F L 85 94 L 08/01/17 14:16 96.3 F L 83 18 99/37 L 94 L 08/01/17 14:12 96.3 F L 91 H 94 L 08/01/17 14:05 96.4 F L 88 93 L 08/01/17 14:01 96.4 F L 84 22 106/60 92 L 08/01/17 14:00 96.4 F L 85 17 95 08/01/17 13:56 96.4 F L 82 94 L 08/01/17 13:55 96.4 F L 85 93 L Intake and Output (Last 8hrs): Intake & Output 08/01/17 08/01/17 08/01/17 06:59 14:59 22:59 Intake Total 340 229 Output Total 1000 Balance -660 229 Weight 176 lb 8 oz Intake: IV 290 229 Right Internal Jugular 100 Other 50 Output: Urine 1000 Urethral (Yan) 1000 Other: # Bowel Movements 0 - Medications Active Medications: Active Medications Generic Name Dose Route Start Last Admin Trade Name Freq PRN Reason Stop Dose Admin Acetaminophen 650 mg 07/31/17 02:36 Tylenol 325mg Tab PO Q4 PRN Fever >100.4 F Albuterol/Ipratropium 3 ml 07/31/17 08:00 08/01/17 14:35 Duoneb 3 Mg/0.5 Mg (3 Ml) Ud IH 3 ml [id number] JAIMIE Administration Aspirin 81 mg 08/01/17 10:00 08/01/17 13:15 Ecotrin PO Not Given DAILY JAIMIE Doxercalciferol 0.5 mcg 08/01/17 14:00 08/01/17 17:47 Hectorol NG Not Given DAILY [facility] Enoxaparin Sodium 30 mg 08/01/17 10:00 08/01/17 09:59 Lovenox SC 30 mg DAILY JAIMIE Administration Protocol Haloperidol 0.25 mg 08/01/17 10:38 Haldol PO Q4 PRN Agitation Protocol Dexmedetomidine HCl 400 mcg in 100 mls @ 3.969 mls/hr 07/31/17 11:16 15:00 Precedex 400mcg/100ml IV 0 mcg/kg/hr .Q24H PRN 0 mls/hr Symptoms of alcohol withdrawl Titration Protocol 0.2 MCG/KG/HR Lactated Ringer's 1,000 mls @ 1,000 mls/hr 08/01/17 17:30 08/01/17 17:44 Lactated Ringer's IV 08/01/17 18:29 1,000 mls/hr .Q1H JAIMIE Administration Dextrose/Sodium Chloride 1,000 mls @ 60 mls/hr 08/01/17 17:39 08/01/17 17:43 Dextrose 5%/0.9% Ns 1000 Ml IV 60 mls/hr .[id number] JAIMIE Administration Insulin Human Lispro 0 units 07/31/17 03:00 08/01/17 17:45 Humalog Low SC Not Given Q6H JAIMIE Protocol Metoprolol Tartrate 25 mg 08/01/17 10:00 08/01/17 17:45 Lopressor PO Not Given BID JAIMIE Pantoprazole Sodium 40 mg 07/31/17 10:00 08/01/17 09:59 Protonix Inj IVP 40 mg DAILY JAIMIE Administration Verapamil HCl 2.5 mg 07/31/17 17:03 Verapamil Inj IVP Q6H PRN for heart rate >130 - Patient Studies Lab Studies: Lab Studies 08/01/17 08/01/17 08/01/17 Range/Units 15:58 15:10 11:34 WBC (4.5-11.0) 10^3/ul RBC (3.5-6.1) 10^6/uL Hgb (14.0-18.0) g/dL Hct (42.0-52.0) % MCV (80.0-105.0) fl MCH (25.0-35.0) pg MCHC (31.0-37.0) g/dl RDW (11.5-14.5) % Plt Count (120.0-450.0) 10^3/uL MPV (7.0-11.0) fl Gran % (50.0-68.0) % Lymph % (Auto) (22.0-35.0) % [place] % (Auto) (1.0-6.0) % Eos % (Auto) (1.5-5.0) % Baso % (Auto) (0.0-3.0) % Gran # (1.4-6.5) Lymph # (Auto) (1.2-3.4) [place] # (Auto) (0.1-0.6) Eos # (Auto) (0.0-0.7) Baso # (Auto) (0.0-2.0) K/mm3 Sodium (132-148) mmol/L Potassium (3.6-5.0) mmol/L Chloride (98-107) mmol/L Carbon Dioxide (21-33) mmol/L Anion Gap (10-20) BUN (7-21) mg/dL Creatinine (0.8-1.5) mg/dl Est GFR ( Amer) Est GFR (Non-Af Amer) POC Glucose (mg/dL) 140 H 133 H (65-110) mg/dL Random Glucose (70-110) mg/dL Calcium (8.4-10.5) mg/dL Phosphorus (2.5-4.5) mg/dL Magnesium (1.7-2.2) mg/dL Iron 22 L (45-180) ug/dL TIBC 271 (261-462) ug/dL % Saturation 8 L (20-55) % Total Bilirubin (0.2-1.3) mg/dL AST (17-59) U/L ALT (7-56) U/L Alkaline Phosphatase (38-126) U/L Total Protein (5.8-8.3) g/dL Albumin (3.0-4.8) g/dL Globulin gm/dL Albumin/Globulin Ratio (1.1-1.8) Urine Opiates Screen (NEGATIVE) Urine Methadone Screen (NEGATIVE) Ur Barbiturates Screen (NEGATIVE) Ur Phencyclidine Scrn (NEGATIVE) Ur Amphetamines Screen (NEGATIVE) U Benzodiazepines Scrn (NEGATIVE) U Oth Cocaine Metabols (NEGATIVE) U Cannabinoids Screen (NEGATIVE) 08/01/17 08/01/17 08/01/17 Range/Units 07:25 06:40 06:40 WBC 8.6 D (4.5-11.0) 10^3/ul RBC 3.06 L (3.5-6.1) 10^6/uL Hgb 8.2 L (14.0-18.0) g/dL Hct 25.9 L (42.0-52.0) % MCV 84.6 (80.0-105.0) fl MCH 26.8 (25.0-35.0) pg MCHC 31.7 (31.0-37.0) g/dl RDW 19.0 H (11.5-14.5) % Plt Count 380 (120.0-450.0) 10^3/uL MPV 10.0 (7.0-11.0) fl Gran % 67.2 (50.0-68.0) % Lymph % (Auto) 21.7 L (22.0-35.0) % [place] % (Auto) 9.4 H (1.0-6.0) % Eos % (Auto) 1.2 L (1.5-5.0) % Baso % (Auto) 0.5 (0.0-3.0) % Gran # 5.77 (1.4-6.5) Lymph # (Auto) 1.9 (1.2-3.4) [place] # (Auto) 0.8 H (0.1-0.6) Eos # (Auto) 0.1 (0.0-0.7) Baso # (Auto) 0.04 (0.0-2.0) K/mm3 Sodium 145 (132-148) mmol/L Potassium 4.5 (3.6-5.0) mmol/L Chloride 113 H (98-107) mmol/L Carbon Dioxide 21 (21-33) mmol/L Anion Gap 16 (10-20) BUN 45 H (7-21) mg/dL Creatinine 3.4 H (0.8-1.5) mg/dl Est GFR ( Amer) 21 Est GFR (Non-Af Amer) 17 POC Glucose (mg/dL) 137 H (65-110) mg/dL Random Glucose 133 H (70-110) mg/dL Calcium 8.3 L (8.4-10.5) mg/dL Phosphorus 4.4 (2.5-4.5) mg/dL Magnesium 1.9 (1.7-2.2) mg/dL Iron (45-180) ug/dL TIBC (261-462) ug/dL % Saturation (20-55) % Total Bilirubin 0.3 (0.2-1.3) mg/dL AST 27 (17-59) U/L ALT 32 (7-56) U/L Alkaline Phosphatase 222 H (38-126) U/L Total Protein 5.8 (5.8-8.3) g/dL Albumin 2.9 L (3.0-4.8) g/dL Globulin 2.9 gm/dL Albumin/Globulin Ratio 1.0 L (1.1-1.8) Urine Opiates Screen (NEGATIVE) Urine Methadone Screen (NEGATIVE) Ur Barbiturates Screen (NEGATIVE) Ur Phencyclidine Scrn (NEGATIVE) Ur Amphetamines Screen (NEGATIVE) U Benzodiazepines Scrn (NEGATIVE) U Oth Cocaine Metabols (NEGATIVE) U Cannabinoids Screen (NEGATIVE) 07/31/17 07/31/17 07/31/17 Range/Units 22:02 18:50 16:39 WBC (4.5-11.0) 10^3/ul RBC (3.5-6.1) 10^6/uL Hgb (14.0-18.0) g/dL Hct (42.0-52.0) % MCV (80.0-105.0) fl MCH (25.0-35.0) pg MCHC (31.0-37.0) g/dl RDW (11.5-14.5) % Plt Count (120.0-450.0) 10^3/uL MPV (7.0-11.0) fl Gran % (50.0-68.0) % Lymph % (Auto) (22.0-35.0) % [place] % (Auto) (1.0-6.0) % Eos % (Auto) (1.5-5.0) % Baso % (Auto) (0.0-3.0) % Gran # (1.4-6.5) Lymph # (Auto) (1.2-3.4) [place] # (Auto) (0.1-0.6) Eos # (Auto) (0.0-0.7) Baso # (Auto) (0.0-2.0) K/mm3 Sodium (132-148) mmol/L Potassium (3.6-5.0) mmol/L Chloride (98-107) mmol/L Carbon Dioxide (21-33) mmol/L Anion Gap (10-20) BUN (7-21) mg/dL Creatinine (0.8-1.5) mg/dl Est GFR ( Amer) Est GFR (Non-Af Amer) POC Glucose (mg/dL) 132 H 119 H (65-110) mg/dL Random Glucose (70-110) mg/dL Calcium (8.4-10.5) mg/dL Phosphorus (2.5-4.5) mg/dL Magnesium (1.7-2.2) mg/dL Iron (45-180) ug/dL TIBC (261-462) ug/dL % Saturation (20-55) % Total Bilirubin (0.2-1.3) mg/dL AST (17-59) U/L ALT (7-56) U/L Alkaline Phosphatase (38-126) U/L Total Protein (5.8-8.3) g/dL Albumin (3.0-4.8) g/dL Globulin gm/dL Albumin/Globulin Ratio (1.1-1.8) Urine Opiates Screen Negative (NEGATIVE) Urine Methadone Screen Negative (NEGATIVE) Ur Barbiturates Screen Negative (NEGATIVE) Ur Phencyclidine Scrn Negative (NEGATIVE) Ur Amphetamines Screen Negative (NEGATIVE) U Benzodiazepines Scrn Negative (NEGATIVE) U Oth Cocaine Metabols Negative (NEGATIVE) U Cannabinoids Screen Negative (NEGATIVE) Laboratory Results - last 24 hr 07/31/17 07/31/17 07/31/17 16:39 18:50 22:02 WBC RBC Hgb Hct MCV MCH MCHC RDW Plt Count MPV Gran % Lymph % (Auto) [place] % (Auto) Eos % (Auto) Baso % (Auto) Gran # Lymph # (Auto) [place] # (Auto) Eos # (Auto) Baso # (Auto) Sodium Potassium Chloride Carbon Dioxide Anion Gap BUN Creatinine Est GFR ( Amer) Est GFR (Non-Af Amer) POC Glucose (mg/dL) 119 H 132 H Random Glucose Calcium Phosphorus Magnesium Iron TIBC % Saturation Total Bilirubin AST ALT Alkaline Phosphatase Total Protein Albumin Globulin Albumin/Globulin Ratio Urine Opiates Screen Negative Urine Methadone Screen Negative Ur Barbiturates Screen Negative Ur Phencyclidine Scrn Negative Ur Amphetamines Screen Negative U Benzodiazepines Scrn Negative U Oth Cocaine Metabols Negative U Cannabinoids Screen Negative 08/01/17 08/01/17 08/01/17 06:40 06:40 07:25 WBC 8.6 D RBC 3.06 L Hgb 8.2 L Hct 25.9 L MCV 84.6 MCH 26.8 MCHC 31.7 RDW 19.0 H Plt Count 380 MPV 10.0 Gran % 67.2 Lymph % (Auto) 21.7 L [place] % (Auto) 9.4 H Eos % (Auto) 1.2 L Baso % (Auto) 0.5 Gran # 5.77 Lymph # (Auto) 1.9 [place] # (Auto) 0.8 H Eos # (Auto) 0.1 Baso # (Auto) 0.04 Sodium 145 Potassium 4.5 Chloride 113 H Carbon Dioxide 21 Anion Gap 16 BUN 45 H Creatinine 3.4 H Est GFR ( Amer) 21 Est GFR (Non-Af Amer) 17 POC Glucose (mg/dL) 137 H Random Glucose 133 H Calcium 8.3 L Phosphorus 4.4 Magnesium 1.9 Iron TIBC % Saturation Total Bilirubin 0.3 AST 27 ALT 32 Alkaline Phosphatase 222 H Total Protein 5.8 Albumin 2.9 L Globulin 2.9 Albumin/Globulin Ratio 1.0 L Urine Opiates Screen Urine Methadone Screen Ur Barbiturates Screen Ur Phencyclidine Scrn Ur Amphetamines Screen U Benzodiazepines Scrn U Oth Cocaine Metabols U Cannabinoids Screen 08/01/17 08/01/17 08/01/17 11:34 15:10 15:58 WBC RBC Hgb Hct MCV MCH MCHC RDW Plt Count MPV Gran % Lymph % (Auto) [place] % (Auto) Eos % (Auto) Baso % (Auto) Gran # Lymph # (Auto) [place] # (Auto) Eos # (Auto) Baso # (Auto) Sodium Potassium Chloride Carbon Dioxide Anion Gap BUN Creatinine Est GFR ( Amer) Est GFR (Non-Af Amer) POC Glucose (mg/dL) 133 H 140 H Random Glucose Calcium Phosphorus Magnesium Iron 22 L TIBC 271 % Saturation 8 L Total Bilirubin AST ALT Alkaline Phosphatase Total Protein Albumin Globulin Albumin/Globulin Ratio Urine Opiates Screen Urine Methadone Screen Ur Barbiturates Screen Ur Phencyclidine Scrn Ur Amphetamines Screen U Benzodiazepines Scrn U Oth Cocaine Metabols U Cannabinoids Screen EKG/Cardiology Studies: Cardiology / EKG Studies 08/01/17 09:37 ELECTROCARDIOGRAM Routine Comment: Reason For Exam: paf PRE OP:: N Does Patient Have a Pacemaker?: No 08/02/17 07:00 ELECTROCARDIOGRAM Routine Comment: Reason For Exam: CAD, PAF PRE OP:: N Does Patient Have a Pacemaker?: No Attending/Attestation - Attestation I have personally seen and examined this patient.: Yes I have fully participated in the care of the patient.: Yes I have reviewed all pertinent clinical information: Yes Notes (Text): 08/01/17 17:48 87 yo male with baseline dementia and recent cardiac arrest with subsequent ROSC , who was successfully extubated yesterday. Currently tapered levophed off, and appeared a bit more calm/comfortable, did require one geodone IM overnight though. Psychiatry note appreciated-->will be conservative with antipsychotics, and only use when benefits of treating agitation overweigh risks. Patient tried on precedex, but BP dropped. Will continue optimize sleep and circadian patterns , frequent re-orientation, early mobilization if possible (patient is not cooperative at times), oral diet if possible (for above reason and if passes swallow eval). TESSY on top of CKD-->will give 1 L of LR as a bolus and re-assess ; will continue with D5NS at 60 cc/hr. Maintain BG control, MAP>65 and avoid nephrotoxins and hyperchloremia. MRI of the head was done yesterday and reviewed by neuro: substantial motion artifact, unable to obtain satisfactory images for final eval of the mass-->will repeat CT head today to see if bleed is stable-->if so will start heparin s/c for DVT prophylaxis (as discussed with Dr. Ham, 48 hrs passed from initial ICH dx, pt is asymptomatic) ccm time 40 min
--- NOTE | 2017-08-01 16:44 | PN ---
DATE: 08/01/2017 SUBJECTIVE: The patient is seen in the ICU. He is awake. He is mumbling. He is not making any sense. He does not appear to be in any kind of physical distress. He was extubated yesterday. He is talking unintelligibly. PHYSICAL EXAMINATION: GENERAL: Elderly male lying in bed in the ICU. VITAL SIGNS: Blood pressure 102/39, heart rate 90, respiratory rate 21, temperature 96.6. HEENT: Normocephalic, atraumatic, positive pallor. NECK: Supple, no JVD. LUNGS: Bilateral equal air entry, bilateral rhonchi, distant breath sounds, prolonged expiration. CARDIAC: S1 and S2, regular rate and rhythm, no murmur, no rub. ABDOMEN: Soft, nondistended, nontender, bowel sounds present. EXTREMITIES: A 1+ pitting edema of the lower extremities, right greater than left. INTAKE AND OUTPUT: 4358/1320. LABORATORY DATA: WBC 8.6, hemoglobin 8.2, hematocrit 26, platelets 380. Sodium 145, potassium 4.5, chloride 113, CO2 of 21, BUN 45, creatinine 3.4, glucose 133, calcium 8.3, phosphorus 4.4, magnesium 1.9, albumin 2.9. Blood cultures, no growth. Chest x-ray, small bilateral pleural effusions. MRI of the brain, mixed signal intensity lesion is seen across all sequences suspicious for potential hemorrhage within a mass or atypical colloidal cyst causing obstructive hydrocephalus. CURRENT MEDICATIONS: D5 normal saline at 100, Diprivan, DuoNeb, Ecotrin, Haldol, insulin, Levophed at 1 mcg per minute, Lovenox, Precedex discontinued, Protonix IV 40 daily, Tylenol, and meropenem 500 every 12 hours. ASSESSMENT: 1. Status post cardiac arrest. 2. Systemic inflammatory response syndrome with ventilator-dependent respiratory failure. 3.? Intracranial hemorrhage. 4. Chronic kidney disease stage 4. 5. Severe dementia. 6. History of hypertension. 7. Long history of smoking/chronic obstructive pulmonary disease. 8. Recent right open reduction and internal fixation. 9. Severe anemia, acute versus acute on chronic. 10. Hypernatremia, iatrogenic. 11. Hypocalcemia. 12. Secondary hyperparathyroidism. PLAN: 1. Change IV fluids to 60 mL/hour. 2. Check iron stores. 3. Lasix 40 mg IV daily. 4. No plans for renal replacement therapy at this time. 5. Avoid nephrotoxins. 6. May need blood transfusion. The case discussed with ICU staff at length. Case discussed with family at bedside. More than 35 minutes spent in the care of this critically ill patient. Gayle Fernandez MD
[2017-08-01] MEDS ORDERED: Lactated Ringer's 1,000 ML IV SCH (17:30)
--- NOTE | 2017-08-01 19:45 | CARD ---
APPROVED REPORT EKG Measurement Heart [id number] [id number] <Conclusion> Sinus rhythm with premature atrial complexes Nonspecific ST and T wave abnormality Abnormal ECG
[2017-08-02] MEDS: Albuterol-Ipratrop 3 mg / 0.5 (3 ml) UD IH SCH ×4 (02:45→21:00)
--- NOTE | 2017-08-02 06:07 | CP.PCM.PN ---
Subjective - Date & Time of Evaluation Date of Evaluation: 08/02/17 Time of Evaluation: 05:58 - Subjective Subjective: Mr. Ceron was seen and examined at the bedside in ICU. He is awake, mumbles incomprehensible words, combative and unable to follow simple commands. He is able to move all extremities spontaneously with his bilateral upper extremities with bilateral wrist restraint for patient safety. MRI of the brain done 07/31/2017 showed motion artifact. There in no suspicious interval findings appreciated including the volume of the ventricular sustem at this timme with the 3rd and bilateral lateral ventricle remaining prominent. There is a mixed signal intensity lesion is seen across all sequences suspicious for potential hemorrhage within a mass or a atypical colloid cyst likely causing obstructive hydrocephalus through the ventricular through the ventricular volume is stable in the interval. Fourth ventricle relatively small compared to the remainder of the ventricular system. There is no eveidence of acute intracranial findings. There was no untoward events overnight. Objective - Vital Signs/Intake and Output Vital Signs (last 24 hours): Temp Pulse Resp BP Pulse Ox 98.1 F 101 H 22 128/54 L 98 08/02/17 00:00 08/01/17 22:15 08/01/17 22:15 08/01/17 22:15 08/01/17 22:15 Intake and Output: 08/01/17 08/02/17 18:59 06:59 Intake Total 229 1820 Output Total 375 Balance 229 1445 - Medications Medications: Current Medications Acetaminophen (Tylenol 325mg Tab) 650 mg PO Q4 PRN PRN Reason: Fever >100.4 F Albuterol/Ipratropium (Duoneb 3 Mg/0.5 Mg (3 Ml) Ud) 3 ml IH [id number] [facility] Last Admin: 08/01/17 20:54 Dose: 3 ml Aspirin (Ecotrin) 81 mg PO DAILY [facility] Last Admin: 08/01/17 13:15 Dose: Not Given Doxercalciferol (Hectorol) 0.5 mcg NG DAILY [facility] Last Admin: 08/01/17 17:47 Dose: Not Given Enoxaparin Sodium (Lovenox) 30 mg SC DAILY [facility] PRN Reason: Protocol Last Admin: 08/01/17 09:59 Dose: 30 mg Haloperidol (Haldol) 0.25 mg PO Q4 PRN; Protocol PRN Reason: Agitation Dexmedetomidine HCl (Precedex 400mcg/100ml) 400 mcg in 100 mls @ 3.969 mls/hr IV .Q24H PRN; Protocol; 0.2 MCG/KG/HR PRN Reason: Symptoms of alcohol withdrawl Last Titration: 07/31/17 15:00 Dose: 0 mcg/kg/hr, 0 mls/hr Dextrose/Sodium Chloride (Dextrose 5%/0.9% Ns 1000 Ml) 1,000 mls @ 60 mls/hr IV .[id number] [facility] Last Admin: 08/01/17 17:43 Dose: 60 mls/hr Insulin Human Lispro (Humalog Low) 0 units SC Q6H [facility] PRN Reason: Protocol Last Admin: 08/01/17 17:45 Dose: Not Given Metoprolol Tartrate (Lopressor) 25 mg PO BID [facility] Last Admin: 08/01/17 17:45 Dose: Not Given Pantoprazole Sodium (Protonix Inj) 40 mg IVP DAILY [facility] Last Admin: 08/01/17 09:59 Dose: 40 mg Verapamil HCl (Verapamil Inj) 2.5 mg IVP Q6H PRN PRN Reason: for heart rate >130 - Labs Labs: 08/01/17 06:40 08/01/17 06:40 PT 12.4 SECONDS (9.4-12.5) 07/30/17 23:30 INR 1.09 (0.93-1.08) H 07/30/17 23:30 APTT 37.2 Seconds (25.1-36.5) H 07/30/17 23:30 - Constitutional Appears: No Acute Distress - Head Exam Head Exam: NORMAL INSPECTION - Neurological Exam Neurological Exam: Awake Neuro motor strength exam: Left Upper Extremity: 4, Right Upper Extremity: 4, Left Lower Extremity: 4, Right Lower Extremity: 4 Additional comments: He is awake, combative, moves all extremities. He is unable to participate during assessment. Assessment and Plan (1) Intracranial bleed Assessment & Plan: Case discussed with Dr. Ham, continue all current medical regimen. Pending repeat CT scan of the head, Recommend depakote 500 mg PO Q 12 for mood stability , seizure prophylaxis. Status: Acute
[2017-08-02] MEDS: Insulin Lispro (humaLOG) LOW Coverage SC SCH ×4 (06:21→18:57)
[2017-08-02 07:06] LABS: BASO # 0.03 K/mm3 (0.0-2.0); BASO % 0.5 % (0.0-3.0); EOS # 0.1 (0.0-0.7); EOS % 1.7 % (1.5-5.0); GRAN # 4.02 (1.4-6.5); GRAN % 60.3 % (50.0-68.0); HEMOGLOBIN 7.5 g/dL (14.0-18.0); LYMPH # 1.8 (1.2-3.4); LYMPH % 26.5 % (22.0-35.0); MEAN CELL VOLUME 83.6 fl (80.0-105.0); MEAN CORPUSCULAR HEMOGLOBIN 26.8 pg (25.0-35.0); MEAN CORPUSCULAR HGB CONC 32.1 g/dl (31.0-37.0); MEAN PLATELET VOLUME 9.8 fl (7.0-11.0); MONO # 0.7 (0.1-0.6); PLATELET COUNT 292 10^3/uL (120.0-450.0); WHITE BLOOD COUNT 6.7 10^3/ul (4.5-11.0)
[2017-08-02 07:30] LABS: ALB/GLOB RATIO 0.9 (1.1-1.8); ALBUMIN 2.7 g/dL (3.0-4.8); CALCIUM 8.7 mg/dL (8.4-10.5)
--- NOTE | 2017-08-02 08:25 | CP.PCM.PN ---
<Nixon Perkins - Last Filed: 08/02/17 14:55> Subjective - Date & Time of Evaluation Date of Evaluation: 08/02/17 Time of Evaluation: 07:00 - Subjective Subjective: IM Progress Note for Hospitalist Service Patient seen and examined at bedside. Overnight, no acute events, but became agitated this AM and combative, requiring bilateral wrist restraints to be placed. Appears less delirious, not repeating same few words near- unintelligibly. Objective - Vital Signs/Intake and Output Vital Signs (last 24 hours): Temp Pulse Resp BP Pulse Ox 98.0 F 101 H 22 128/54 L 98 08/02/17 04:00 08/01/17 22:15 08/01/17 22:15 08/01/17 22:15 08/01/17 22:15 Intake and Output: 08/02/17 08/02/17 06:59 18:59 Intake Total 2540 Output Total 875 Balance 1665 - Medications Medications: Current Medications Acetaminophen (Tylenol 325mg Tab) 650 mg PO Q4 PRN PRN Reason: Fever >100.4 F Albuterol/Ipratropium (Duoneb 3 Mg/0.5 Mg (3 Ml) Ud) 3 ml IH [id number] [facility] Last Admin: 08/02/17 02:45 Dose: 3 ml Aspirin (Ecotrin) 81 mg PO DAILY [facility] Last Admin: 08/01/17 13:15 Dose: Not Given Divalproex Sodium (Depakote Dr(*Bid*)) 500 mg PO Q12 [facility] PRN Reason: Protocol Doxercalciferol (Hectorol) 0.5 mcg NG DAILY [facility] Last Admin: 08/01/17 17:47 Dose: Not Given Enoxaparin Sodium (Lovenox) 30 mg SC DAILY [facility] PRN Reason: Protocol Last Admin: 08/01/17 09:59 Dose: 30 mg Haloperidol (Haldol) 0.25 mg PO Q4 PRN; Protocol PRN Reason: Agitation Dexmedetomidine HCl (Precedex 400mcg/100ml) 400 mcg in 100 mls @ 3.969 mls/hr IV .Q24H PRN; Protocol; 0.2 MCG/KG/HR PRN Reason: Symptoms of alcohol withdrawl Last Titration: 07/31/17 15:00 Dose: 0 mcg/kg/hr, 0 mls/hr Dextrose/Sodium Chloride (Dextrose 5%/0.9% Ns 1000 Ml) 1,000 mls @ 60 mls/hr IV .[id number] [facility] Last Admin: 08/01/17 17:43 Dose: 60 mls/hr Insulin Human Lispro (Humalog Low) 0 units SC 0000,0600,1200,1800 [facility] PRN Reason: Protocol Metoprolol Tartrate (Lopressor) 25 mg PO BID [facility] Last Admin: 08/01/17 17:45 Dose: Not Given Pantoprazole Sodium (Protonix Inj) 40 mg IVP DAILY [facility] Last Admin: 08/01/17 09:59 Dose: 40 mg Verapamil HCl (Verapamil Inj) 2.5 mg IVP Q6H PRN PRN Reason: for heart rate >130 - Labs Labs: 08/02/17 06:30 08/02/17 06:30 PT 12.4 SECONDS (9.4-12.5) 07/30/17 23:30 INR 1.09 (0.93-1.08) H 07/30/17 23:30 APTT 37.2 Seconds (25.1-36.5) H 07/30/17 23:30 - Psychiatric Exam Additional comments: unable to assess, non-verbal during exam - Skin Skin Exam: Dry, Intact, Normal Color, Warm - Additional Findings Additional findings: - Constitutional Appears: Non-toxic, Confused, Chronically Ill - Head Exam Head Exam: ATRAUMATIC, NORMAL INSPECTION, NORMOCEPHALIC - Eye Exam Eye Exam: Normal appearance. absent: Conjunctival injection, Scleral icterus Pupil Exam: absent: Irregular, Unequal - ENT Exam ENT Exam: Mucous Membranes Moist - Neck Exam Neck Exam: Normal Inspection - Respiratory Exam Respiratory Exam: Rhonchi (bibasilar ronchi improved compared to yesterday, some ronchourous sounds in neck appreciated), NORMAL BREATHING PATTERN. absent : Accessory Muscle Use, Decreased Breath Sounds, Rales, Wheezes - Cardiovascular Exam Cardiovascular Exam: Irregular Rhythm, +S1, +S2. absent: Bradycardia, Tachycardia, REGULAR RHYTHM, JVD, RRR, +S4 - GI/Abdominal Exam GI & Abdominal Exam: Soft, Normal Bowel Sounds. absent: Distended, Firm, Guarding, Rigid, Tenderness (patient unable to articulate pain, but no reaction suggestive on pain on palpation), Diminished Bowel Sounds, Hypoactive Bowel Sounds - Extremities Exam Extremities Exam: Normal Capillary Refill, Pedal Edema (right foot and ankle > left, trace in left, +1 in right foot and ankle, none bilaterally above SCDs) - Neurological Exam awake but does not appear fully alert, stares into distance, occasionally tracking different family members within room, bilateral wrist restraints, few spontaneous movements of extremities noted during exam Assessment and Plan - Assessment and Plan (Free Text) Assessment: This is an 87 yo male with PMH of HTN, CKD Stg IV, ORIF 3 weeks ago, and dementia brought in by EMS after an episode of unresponsiveness and possible cardiac arrest at home, s/p cardiac arrest in the ED, ROSC achieved after 1 dose of epi. Was intubated after ED code, now day 3 s/p extubation, weaned off levophed, and is transferred to telemetry. 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, would start baby aspirin, low-dose beta-gita, lovenox 30u SC daily; ASA and Lovenox on hold currently -Hypotension improving, weaning levophed, now on 2 mcg/min, goal is MAP > 65 -Extubated, protecting airway -as per ID, procal negative and cx negative thus far, can d/c abx and monitor, less likely aspiration PNA -Hgb 7.5 (was 8.2), continue to monitor, transfuse if Hgb < 7 or dropping with signs of acute hemorrage (hemodynamic instability, end-organ dmg) 2) Hemorrhagic stroke -CTH shows 1.7 x 2.5 x 1.7 hemorrhage at level of 3rd vent (patient had a hx of hemorrhagic stroke 3 years ago as per family) -Neuro following, appreciate all recs: recs repeat head CT since MRI unreliable due to all motion artifacting, if stable/resorbing can start heparin subq for DVT ppx, hold off on other anticoagulation/antiplatelets -repeat Head CT read as unchanged, but said less likely bleed over obstructing colloid cyst; defer to Neuro to start heparin SC or not -family reports hx of hemorrhagic stroke 3 yrs prior, but as per neuro, would have been resorbed by now, findings on scans represent new event -depakote 500mg BID PO ordered by neuro, but pt failed swallow study, converted to IV 3) ETSSY on CKD -Cr worsened to 3.8 today (was 3.4) -as per Nephro, baseline is CKD Stage IV, improved as compared to 3 weeks prior (while at [facility]), no indication for renal replacement therapy at this time -Nephro recs: lasix 40mg IV daily, IVF 60cc/hr, avoid nephrotoxins, check iron stores -strict I's and O's, daily weights 4) Delirium overlying dementia -strict day/night cycle as feasible -psych consulted, recs cautious use of antipsychotics given ADR profile in the elderly -at high risk for delirium due to hx dementia, severity of illness, ICU placement, elderly population 5) Hx COPD -continue duonebs -V/q negative for PE -maintain SaO2 > 90%, avoid overoxygenation in COPD pt to prevent suppression of respiratory drive Dispo: ICU transferred to tele, pending Neuro's decision on whether to start heparin for DVT ppx given CT head findings, pending assessment of degree of mental status recovery FEN: NPO, NS 60cc/hr Access: Peripheral IV, TLC (Right IJ), NGT Consults: Nephro, ID, Psych, ICU, Cardio, Neuro Ppx: Protonix for GI, pending possible heparin sc for DVT (depending on repeat head CT findings) Patient seen, reviewed, and discussed with attending, Dr. Lawrence. <Olaf Lawrence - Last Filed: 08/08/17 13:37> Objective - Vital Signs/Intake and Output Vital Signs (last 24 hours): Temp Pulse Resp BP Pulse Ox 97.3 F L 66 18 122/49 L 95 08/08/17 07:48 08/08/17 07:48 08/08/17 07:48 08/08/17 07:48 08/08/17 07:48 Intake and Output: 08/08/17 08/08/17 06:59 18:59 Intake Total 1320 Balance 1320 - Medications Medications: Current Medications Acetaminophen (Tylenol 325mg Tab) 650 mg PO Q4 PRN PRN Reason: Fever >100.4 F Albuterol/Ipratropium (Duoneb 3 Mg/0.5 Mg (3 Ml) Ud) 3 ml IH [id number] [facility] Last Admin: 08/08/17 07:53 Dose: 3 ml Alprazolam (Xanax) 0.25 mg PO TID [facility] PRN Reason: Protocol Stop: 08/13/17 14:01 Last Admin: 08/08/17 10:16 Dose: 0.25 mg Doxercalciferol (Hectorol) 0.5 mcg PO DAILY [facility] Heparin Sodium (Porcine) (Heparin) 5,000 units SC Q12 [facility] PRN Reason: Protocol Last Admin: 08/08/17 10:16 Dose: 5,000 units Valproate Sodium 500 mg/ (Sodium Chloride) 105 mls @ 100 mls/hr IVPB Q12 [facility] Last Admin: 08/08/17 10:12 Dose: 100 mls/hr Dextrose (Dextrose 5% In Water 1000 Ml) 1,000 mls @ 60 mls/hr IV .[id number] [facility] Last Admin: 08/08/17 10:05 Dose: 60 mls/hr Mirtazapine (Remeron) 15 mg PO HS [facility] Last Admin: 08/07/17 21:25 Dose: 15 mg Pantoprazole Sodium (Protonix Inj) 40 mg IVP DAILY [facility] Last Admin: 08/08/17 10:17 Dose: 40 mg Quetiapine Fumarate (Seroquel) 12.5 mg PO HS [facility] PRN Reason: Protocol Last Admin: 08/07/17 21:25 Dose: 12.5 mg Verapamil HCl (Verapamil Inj) 2.5 mg IVP Q6H PRN PRN Reason: for heart rate >130 Ziprasidone (Geodon Inj) 10 mg IM Q12 PRN; Protocol PRN Reason: agitation/aggression/psychosis - Labs Labs: 08/06/17 06:30 08/07/17 12:55 PT 12.4 SECONDS (9.4-12.5) 07/30/17 23:30 INR 1.09 (0.93-1.08) H 07/30/17 23:30 APTT 37.2 Seconds (25.1-36.5) H 07/30/17 23:30 Attending/Attestation - Attestation I have personally seen and examined this patient.: Yes I have fully participated in the care of the patient.: Yes I have reviewed all pertinent clinical information, including history, physical exam and plan: Yes Notes (Text): I have seen and examined the patient at bedside. Agree with the above note with the following additions/ exceptions: Briefly this is 87 year old Citizen [place] male with history of chronic kidney disease, right ORIF, questionable dementia versus psychiatric disorder who was admitted post cardiac arrest after brief CPR. He has elevated troponin s/p CPR. He has questionable intracranial hemorrhage. Neurology evaluation appreciated. Head CT showed colloid cysts versus hemorrhage. No new changes. Continue to hold aspirin. As per marketing support coordinator his baseline creatinine was 4-5 at [facility] few weeks ago. He has CKD. Monitor urine output. Patient is DNI DNR. Agitation is possible history of schizophrenia versus dementia. psychiatric evaluation appreciated. He was started on Haldol when necessary. Prognosis is poor.
[2017-08-02 08:35] LABS: EOSINOPHIL 2 % (0.0-3.0); LYMPHOCYTE 20 % (22.0-35.0); METAMYELOCYTE 1 %; MONOCYTE 6 % (1.0-6.0); MYELOCYTE 4 %; NEUTROPHIL 67 % (50.0-70.0)
--- NOTE | 2017-08-02 08:35 | CT ---
PROCEDURE: CT HEAD WITHOUT CONTRAST. HISTORY: s/p hemorrhagic stroke, reassess COMPARISON: CT scan and MRI 07/31/2017 TECHNIQUE: Axial computed tomography images were obtained through the head/brain without intravenous contrast. Exam is limited by motion. Radiation dose: Total exam DLP = 2116 mGy-cm. This CT exam was performed using one or more of the following dose reduction techniques: Automated exposure control, adjustment of the mA and/or kV according to patient size, and/or use of iterative reconstruction technique. FINDINGS: HEMORRHAGE: There is once again evidence of a ovoid area of high density within the 3rd. This may reflect an area of hemorrhage, however unusual high density long-standing colloid cyst in this location would not be excluded. BRAIN: There is diffuse cerebral atrophy appreciated with probable areas of decreased density in the white matter tracts. This may suggest microvascular small-vessel changes but are stable. VENTRICLES: Unchanged from prior study. CALVARIUM: Unremarkable. PARANASAL SINUSES: No change MASTOID AIR CELLS: No change OTHER FINDINGS: None. IMPRESSION: Stable appearance of an ovoid area of high density within the 3rd ventricle. Moderate cerebral atrophy elsewhere. No new hemorrhage is identified.
[2017-08-02] MEDS ORDERED: Divalproex 500 mg DR(BID formulation) PO SCH (10:00)
[2017-08-02] MEDS: Metoprolol 1 mg/ml Inj IVP SCH ×3 (10:09→22:39)
[2017-08-02] MEDS: Dextrose 5%/0.9% NS 1,000 ML IV SCH (10:57)
--- NOTE | 2017-08-02 12:06 | CP.PCM.PN ---
Subjective - Date & Time of Evaluation Date of Evaluation: 08/02/17 Time of Evaluation: 11:10 - Subjective Subjective: Remains intubated, no fevers, not in distress currently. Objective - Vital Signs/Intake and Output Vital Signs (last 24 hours): Temp Pulse Resp BP Pulse Ox 98.0 F 102 H 22 128/81 98 08/02/17 04:00 08/02/17 10:09 08/01/17 22:15 08/02/17 10:09 08/01/17 22:15 Intake and Output: 08/02/17 08/02/17 06:59 18:59 Intake Total 2540 Output Total 875 Balance 1665 - Medications Medications: Current Medications Acetaminophen (Tylenol 325mg Tab) 650 mg PO Q4 PRN PRN Reason: Fever >100.4 F Albuterol/Ipratropium (Duoneb 3 Mg/0.5 Mg (3 Ml) Ud) 3 ml IH [id number] [facility] Last Admin: 08/02/17 08:49 Dose: 3 ml Aspirin (Ecotrin) 81 mg PO DAILY [facility] Last Admin: 08/01/17 13:15 Dose: Not Given Divalproex Sodium (Depakote Dr(*Bid*)) 500 mg PO Q12 [facility] PRN Reason: Protocol Last Admin: 08/02/17 10:14 Dose: Not Given Doxercalciferol (Hectorol) 0.5 mcg NG DAILY [facility] Last Admin: 08/02/17 10:15 Dose: Not Given Enoxaparin Sodium (Lovenox) 30 mg SC DAILY [facility] PRN Reason: Protocol Last Admin: 08/01/17 09:59 Dose: 30 mg Haloperidol (Haldol) 0.25 mg PO Q4 PRN; Protocol PRN Reason: Agitation Dexmedetomidine HCl (Precedex 400mcg/100ml) 400 mcg in 100 mls @ 3.969 mls/hr IV .Q24H PRN; Protocol; 0.2 MCG/KG/HR PRN Reason: Symptoms of alcohol withdrawl Last Titration: 07/31/17 15:00 Dose: 0 mcg/kg/hr, 0 mls/hr Dextrose/Sodium Chloride (Dextrose 5%/0.9% Ns 1000 Ml) 1,000 mls @ 60 mls/hr IV .[id number] [facility] Last Admin: 08/01/17 17:43 Dose: 60 mls/hr Insulin Human Lispro (Humalog Low) 0 units SC 0000,0600,1200,1800 [facility] PRN Reason: Protocol Metoprolol Tartrate (Lopressor) 25 mg PO BID [facility] Last Admin: 08/02/17 10:14 Dose: Not Given Metoprolol Tartrate (Lopressor) 5 mg IVP Q6H [facility] Last Admin: 08/02/17 10:09 Dose: 5 mg Pantoprazole Sodium (Protonix Inj) 40 mg IVP DAILY [facility] Last Admin: 08/02/17 09:59 Dose: 40 mg Verapamil HCl (Verapamil Inj) 2.5 mg IVP Q6H PRN PRN Reason: for heart rate >130 - Labs Labs: 08/02/17 06:30 08/02/17 06:30 PT 12.4 SECONDS (9.4-12.5) 07/30/17 23:30 INR 1.09 (0.93-1.08) H 07/30/17 23:30 APTT 37.2 Seconds (25.1-36.5) H 07/30/17 23:30 - Constitutional Appears: Chronically Ill - Head Exam Head Exam: NORMAL INSPECTION - Neck Exam Neck Exam: absent: Meningismus - Respiratory Exam Respiratory Exam: Decreased Breath Sounds - Cardiovascular Exam Cardiovascular Exam: +S1, +S2 - GI/Abdominal Exam GI & Abdominal Exam: Soft. absent: Tenderness Assessment and Plan - Assessment and Plan (Free Text) Plan: Assessment S/P systemic inflammatory response syndrome with ventilator-dependent respiratory failure after cardiorespiratory arrest, consider due to possible subarachnoid hemorrhage / CVA R/O acute myocardial infarction, unlikely aspiration pneumonia chronic renal failure HTN dementia significant smoking history S/P ORIF Plan will continue to monitor the patient off antibiotics since he is at risk for nosocomial infections follow up further Cardiology and Neurology recommendations
--- NOTE | 2017-08-02 14:46 | PN ---
DATE: 08/02/2017 REASON FOR CONSULTATION: Status post cardiac arrest, status post CPR, intubated, now successfully extubated, altered mental status improving. SUBJECTIVE: The patient is lying flat on the bed, having 2 soft Denzel restraint, still restless, though much awake and alert. Denies any chest pain, shortness of breath or any palpitation. OBJECTIVE: GENERAL: Not in any apparent distress. VITAL SIGNS: Temperature afebrile, heart rate 101, blood pressure 128/54. HEENT: PERRLA. Extraocular muscles intact. NECK: Supple. No carotid bruit. No thyromegaly. CHEST: Clear to auscultation. HEART: S1 and S2 regular. ABDOMEN: Soft. EXTREMITIES: Clubbing and cyanosis negative. LABORATORY DATA: Blood workup as follows; WBC 6.7, hemoglobin 7.5, hematocrit 23.4, platelet count 292. Chemistry shows sodium 140, potassium 4.7, chloride 117, carbon dioxide 21, anion gap of 14, BUN 43, creatinine 3.8, total protein 5.7, albumin 2.7, albumin and globulin ratio 0.9. IMPRESSION: Protein-calorie malnutrition, moderate, which was not present on admission; difficulty in swallowing, failed swallowing evaluation, choking on p.o. medications; altered mental status; status post cardiac arrest; status post cardiopulmonary resuscitation, is successfully extubated. On admission, borderline troponin 0.19 borderline, with creatinine clearance 20 cc, significant, not sure whether it is really true [id number] myocardial infarction because of hemodynamic instability and in phase of renal clearance stage IV, possibly not significant. No complaint of chest pain now. The patient had echocardiography done on 07/31/2017 that showed normal ejection fraction 63%, normal right ventricle size, borderline dilated left atrium, [id number] aortic regurgitation, trace mitral regurgitation, and right ventricular systolic pressure 35. The patient had a repeat CAT scan of the head done yesterday. No new hemorrhages noted. Stable appearance of a wide area of high density noted. MRI of the brain earlier on 07/31/2017, no evidence of acute infarct. Dementia, status post cardiac arrest, status post cardiopulmonary resuscitation, intubated, status post hip surgery recently, paroxysmal atrial fibrillation, status post collapse, unresponsive, now awake and alert, altered mental status, probably dementia, some element of dementia as well, renal insufficiency, preserved left ventricular function, hypertension, failed swallowing evaluation, unable to take p.o. medications. RECOMMENDATIONS: Start IV Lopressor 5 mg. Hold p.o. medications. Continue DVT prophylaxis and we will put clonidine patch for blood pressure if needed or IV hydralazine p.r.n. for blood pressure. Consider PEG placement and if the patient continues to fail swallowing evaluation, consider PEG placement. In interim, we will put beta gita going back into atrial fibrillation. We will put 5 mg every 6 schedule and hold for heart rate less than 60 and SBP less than 110. We will follow with you. The patient also has a protein calorie malnutrition, needs nutrition support, so needs PEG placement in the interim, consider PPN. Thank you Dr. Lawrence for providing us the opportunity in taking care of the patient, Alan Ceron. Jerald Conway MD
--- NOTE | 2017-08-02 18:41 | CP.CCUPN ---
<Kevin Melo - Last Filed: 08/02/17 18:33> CCU Subjective - Physician Review Subjective (Free Text): Patient seen and examined at bedside in no acute distress. ROS not obtained due to patient's mental status. CCU Objective - Vital Signs / Intake & Output Vital Signs (Last 4 hours): Vital Signs Temp Pulse Resp BP Pulse Ox 08/02/17 18:00 97.6 F 84 18 108/70 95 08/02/17 16:17 97 H 124/74 08/02/17 16:00 98.2 F 83 18 114/50 L 98 08/02/17 15:00 98.2 F 84 19 119/48 L 97 Intake and Output (Last 8hrs): Intake & Output 08/02/17 08/02/17 08/02/17 06:59 14:59 22:59 Intake Total 720 Output Total 500 Balance 220 Intake: IV 720 Right Antecubital 720 Output: Urine 500 Urethral (Yan) 500 - Physical Exam Head: Positive for: Atraumatic, Normocephalic Pupils: Positive for: PERRL Extroacular Muscles: Positive for: EOMI Conjunctiva: Positive for: Normal Ears: Positive for: NORMAL TM Mouth: Positive for: Moist Mucous Membranes Pharnyx: Positive for: Normal Neck: Positive for: Normal Range of Motion Respiratory/Chest: Positive for: Rhonchi (Rhonchi bilaterally. ). Negative for : Clear to Auscultation Cardiovascular: Positive for: Irregular Rhythm (Irregularly irregular. ) Abdomen: Negative for: Tenderness, Distention, Peritoneal Signs Back: Positive for: Normal Inspection Upper Extremity: Positive for: Normal Inspection. Negative for: Cyanosis, Edema Lower Extremity: Positive for: Normal Inspection. Negative for: Edema Neurological: Negative for: Speech Normal Skin: Positive for: Warm, Dry, Normal Color. Negative for: Rashes Psychiatric: Positive for: Alert, Agitated, Lethargic - Medications Active Medications: Active Medications Generic Name Dose Route Start Last Admin Trade Name Freq PRN Reason Stop Dose Admin Acetaminophen 650 mg 07/31/17 02:36 Tylenol 325mg Tab PO Q4 PRN Fever >100.4 F Albuterol/Ipratropium 3 ml 07/31/17 08:00 08/02/17 14:49 Duoneb 3 Mg/0.5 Mg (3 Ml) Ud IH 3 ml [id number] JAIMIE Administration Aspirin 81 mg 08/01/17 10:00 08/01/17 13:15 Ecotrin PO Not Given DAILY [facility] Doxercalciferol 0.5 mcg 08/01/17 14:00 08/02/17 10:15 Hectorol NG Not Given DAILY [facility] Enoxaparin Sodium 30 mg 08/01/17 10:00 08/01/17 09:59 Lovenox SC 30 mg DAILY JAIMIE Administration Protocol Haloperidol 0.25 mg 08/01/17 10:38 Haldol PO Q4 PRN Agitation Protocol Dexmedetomidine HCl 400 mcg in 100 mls @ 3.969 mls/hr 07/31/17 11:16 15:00 Precedex 400mcg/100ml IV 0 mcg/kg/hr .Q24H PRN 0 mls/hr Symptoms of alcohol withdrawl Titration Protocol 0.2 MCG/KG/HR Dextrose/Sodium Chloride 1,000 mls @ 60 mls/hr 08/01/17 17:39 08/02/17 10:57 Dextrose 5%/0.9% Ns 1000 Ml IV 60 mls/hr .[id number] JAIMIE Administration Valproate Sodium 500 mg/ 105 mls @ 100 mls/hr 08/02/17 22:00 Sodium Chloride IVPB Q12 [facility] Insulin Human Lispro 0 units 08/02/17 08:10 08/02/17 12:50 Humalog Low SC Not Given 0000,0600,1200,1800 [facility] Protocol Metoprolol Tartrate 5 mg 08/02/17 09:45 08/02/17 16:17 Lopressor IVP 5 mg Q6H JAIMIE Administration Pantoprazole Sodium 40 mg 07/31/17 10:00 08/02/17 09:59 Protonix Inj IVP 40 mg DAILY JAIMIE Administration Verapamil HCl 2.5 mg 07/31/17 17:03 Verapamil Inj IVP Q6H PRN for heart rate >130 - Patient Studies Lab Studies: Microbiology Studies 07/31/17 03:20 MRSA Culture (Admit) - Final Naris MRSA NOT DETECTED Lab Studies 08/02/17 08/02/17 08/02/17 Range/Units 10:50 07:33 06:30 WBC (4.5-11.0) 10^3/ul RBC (3.5-6.1) 10^6/uL Hgb (14.0-18.0) g/dL Hct (42.0-52.0) % MCV (80.0-105.0) fl MCH (25.0-35.0) pg MCHC (31.0-37.0) g/dl RDW (11.5-14.5) % Plt Count (120.0-450.0) 10^3/uL MPV (7.0-11.0) fl Gran % (50.0-68.0) % Lymph % (Auto) (22.0-35.0) % [place] % (Auto) (1.0-6.0) % Eos % (Auto) (1.5-5.0) % Baso % (Auto) (0.0-3.0) % Gran # (1.4-6.5) Lymph # (Auto) (1.2-3.4) [place] # (Auto) (0.1-0.6) Eos # (Auto) (0.0-0.7) Baso # (Auto) (0.0-2.0) K/mm3 Neutrophils % (Manual) (50.0-70.0) % Lymphocytes % (Manual) (22.0-35.0) % Monocytes % (Manual) (1.0-6.0) % Eosinophils % (Manual) (0.0-3.0) % Metamyelocytes % % Myelocytes % % Sodium 148 (132-148) mmol/L Potassium 4.7 (3.6-5.0) mmol/L Chloride 117 H (98-107) mmol/L Carbon Dioxide 21 (21-33) mmol/L Anion Gap 14 (10-20) BUN 43 H (7-21) mg/dL Creatinine 3.8 H (0.8-1.5) mg/dl Est GFR ( Amer) 18 Est GFR (Non-Af Amer) 15 POC Glucose (mg/dL) 105 91 (65-110) mg/dL Random Glucose 109 (70-110) mg/dL Calcium 8.7 (8.4-10.5) mg/dL Phosphorus 4.6 H (2.5-4.5) mg/dL Magnesium 1.9 (1.7-2.2) mg/dL Ferritin ng/mL Total Bilirubin 0.3 (0.2-1.3) mg/dL AST 50 (17-59) U/L ALT 24 (7-56) U/L Alkaline Phosphatase 214 H (38-126) U/L Total Protein 5.7 L (5.8-8.3) g/dL Albumin 2.7 L (3.0-4.8) g/dL Globulin 3.0 gm/dL Albumin/Globulin Ratio 0.9 L (1.1-1.8) 08/02/17 08/01/17 08/01/17 Range/Units 06:30 22:12 14:00 WBC 6.7 D (4.5-11.0) 10^3/ul RBC 2.80 L (3.5-6.1) 10^6/uL Hgb 7.5 L (14.0-18.0) g/dL Hct 23.4 L (42.0-52.0) % MCV 83.6 (80.0-105.0) fl MCH 26.8 (25.0-35.0) pg MCHC 32.1 (31.0-37.0) g/dl RDW 19.0 H (11.5-14.5) % Plt Count 292 (120.0-450.0) 10^3/uL MPV 9.8 (7.0-11.0) fl Gran % 60.3 (50.0-68.0) % Lymph % (Auto) 26.5 (22.0-35.0) % [place] % (Auto) 11.0 H (1.0-6.0) % Eos % (Auto) 1.7 (1.5-5.0) % Baso % (Auto) 0.5 (0.0-3.0) % Gran # 4.02 (1.4-6.5) Lymph # (Auto) 1.8 (1.2-3.4) [place] # (Auto) 0.7 H (0.1-0.6) Eos # (Auto) 0.1 (0.0-0.7) Baso # (Auto) 0.03 (0.0-2.0) K/mm3 Neutrophils % (Manual) 67 (50.0-70.0) % Lymphocytes % (Manual) 20 L (22.0-35.0) % Monocytes % (Manual) 6 (1.0-6.0) % Eosinophils % (Manual) 2 (0.0-3.0) % Metamyelocytes % 1 % Myelocytes % 4 % Sodium (132-148) mmol/L Potassium (3.6-5.0) mmol/L Chloride (98-107) mmol/L Carbon Dioxide (21-33) mmol/L Anion Gap (10-20) BUN (7-21) mg/dL Creatinine (0.8-1.5) mg/dl Est GFR ( Amer) Est GFR (Non-Af Amer) POC Glucose (mg/dL) 112 H (65-110) mg/dL Random Glucose (70-110) mg/dL Calcium (8.4-10.5) mg/dL Phosphorus (2.5-4.5) mg/dL Magnesium (1.7-2.2) mg/dL Ferritin 626.0 ng/mL Total Bilirubin (0.2-1.3) mg/dL AST (17-59) U/L ALT (7-56) U/L Alkaline Phosphatase (38-126) U/L Total Protein (5.8-8.3) g/dL Albumin (3.0-4.8) g/dL Globulin gm/dL Albumin/Globulin Ratio (1.1-1.8) Laboratory Results - last 24 hr 08/01/17 08/01/17 08/02/17 14:00 22:12 06:30 WBC 6.7 D RBC 2.80 L Hgb 7.5 L Hct 23.4 L MCV 83.6 MCH 26.8 MCHC 32.1 RDW 19.0 H Plt Count 292 MPV 9.8 Gran % 60.3 Lymph % (Auto) 26.5 Alger % (Auto) 11.0 H Eos % (Auto) 1.7 Baso % (Auto) 0.5 Gran # 4.02 Lymph # (Auto) 1.8 Alger # (Auto) 0.7 H Eos # (Auto) 0.1 Baso # (Auto) 0.03 Neutrophils % (Manual) 67 Lymphocytes % (Manual) 20 L Monocytes % (Manual) 6 Eosinophils % (Manual) 2 Metamyelocytes % 1 Myelocytes % 4 Sodium Potassium Chloride Carbon Dioxide Anion Gap BUN Creatinine Est GFR ( Amer) Est GFR (Non-Af Amer) POC Glucose (mg/dL) 112 H Random Glucose Calcium Phosphorus Magnesium Ferritin 626.0 Total Bilirubin AST ALT Alkaline Phosphatase Total Protein Albumin Globulin Albumin/Globulin Ratio 08/02/17 08/02/17 08/02/17 06:30 07:33 10:50 WBC RBC Hgb Hct MCV MCH MCHC RDW Plt Count MPV Gran % Lymph % (Auto) Alger % (Auto) Eos % (Auto) Baso % (Auto) Gran # Lymph # (Auto) [place] # (Auto) Eos # (Auto) Baso # (Auto) Neutrophils % (Manual) Lymphocytes % (Manual) Monocytes % (Manual) Eosinophils % (Manual) Metamyelocytes % Myelocytes % Sodium 148 Potassium 4.7 Chloride 117 H Carbon Dioxide 21 Anion Gap 14 BUN 43 H Creatinine 3.8 H Est GFR ( Amer) 18 Est GFR (Non-Af Amer) 15 POC Glucose (mg/dL) 91 105 Random Glucose 109 Calcium 8.7 Phosphorus 4.6 H Magnesium 1.9 Ferritin Total Bilirubin 0.3 AST 50 ALT 24 Alkaline Phosphatase 214 H Total Protein 5.7 L Albumin 2.7 L Globulin 3.0 Albumin/Globulin Ratio 0.9 L EKG/Cardiology Studies: Cardiology / EKG Studies 08/02/17 07:00 ELECTROCARDIOGRAM Routine Comment: Reason For Exam: CAD, PAF PRE OP:: N Does Patient Have a Pacemaker?: No Fingerstick Blood Sugar Results: 105 Review of Systems - Review of Systems Systems not reviewed;Unavailable: Altered Mental Status Assessment/Plan - Assessment and Plan (Free Text) Assessment: 87yo male PMHx HTN, kidney disease, dementia brought in by EMS after an episode of unresponsiveness s/p cardiac arrest in the ED, ROSC achieved after 1 dose of epi and subsequently intubated, sedated and placed on Levophed drip admitted to the ICU for hypoxemic respiratory failure. Patient currently extubated and off levophed drip and transferred to telemetry. 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 for which he received treatment in [place] -Continue with HoB above 30 degrees -Continue with aspiration precautions -Repeat CT head to check for absorption of hemorrhage Cardio -Maintain MAP > 65mmHg -Continue with lopressor and verapamil Pulm -Duoneb q6 -Maintain spO2 above 90% GI -NPO -Continue with GI ppx Nephro -Continue to monitor renal function -monitor electrolytes -Monitor strict Is and Os -Nephro on consult -Maintain euvolemia ID -Afebrile and without leukocytosis -No further intervention at this time Endo -RISS low -Accuchecks -maintain euglycemia blood sugars 140-180 Heme: -Monitor H&H -No active signs of bleeding -SCD for DVT prophylaxis <Gagandeep Queen - Last Filed: 08/05/17 15:35> CCU Objective - Vital Signs / Intake & Output Vital Signs (Last 4 hours): Vital Signs Temp Pulse Resp BP Pulse Ox 08/05/17 15:00 96.3 F L 68 20 121/57 L 94 L 08/05/17 12:00 97 F L 64 20 128/56 L Intake and Output (Last 8hrs): Intake & Output 08/05/17 08/05/17 08/05/17 06:59 14:59 22:59 Intake Total 1060 Output Total 500 Balance 560 Weight 176 lb 1.6 oz Intake: IV 820 Right Forearm 820 Oral 240 Output: Urine 500 Urine, Voided 500 - Medications Active Medications: Active Medications Generic Name Dose Route Start Last Admin Trade Name Freq PRN Reason Stop Dose Admin Acetaminophen 650 mg 07/31/17 02:36 Tylenol 325mg Tab PO Q4 PRN Fever >100.4 F Albuterol/Ipratropium 3 ml 07/31/17 08:00 08/05/17 13:22 Duoneb 3 Mg/0.5 Mg (3 Ml) Ud IH 3 ml [id number] JAIMIE Administration Doxercalciferol 0.5 mcg 08/01/17 14:00 08/05/17 10:29 Hectorol NG Not Given DAILY JAIMIE Haloperidol 0.25 mg 08/01/17 10:38 Haldol PO Q4 PRN Agitation Protocol Valproate Sodium 500 mg/ 105 mls @ 100 mls/hr 08/02/17 22:00 08/05/17 10:16 Sodium Chloride IVPB 100 mls/hr Q12 JAIMIE Administration Dextrose 1,000 mls @ 60 mls/hr 08/03/17 12:45 08/04/17 23:11 Dextrose 5% In Water 1000 Ml IV 60 mls/hr .[id number] JAIMIE Administration Insulin Human Lispro 0 units 08/02/17 08:10 08/05/17 12:23 Humalog Low SC Not Given 0000,0600,1200,1800 [facility] Protocol Metoprolol Tartrate 5 mg 08/02/17 09:45 08/05/17 10:18 Lopressor IVP Not Given Q6H JAIMIE Pantoprazole Sodium 40 mg 07/31/17 10:00 08/05/17 10:18 Protonix Inj IVP 40 mg DAILY JAIMIE Administration Verapamil HCl 2.5 mg 07/31/17 17:03 Verapamil Inj IVP Q6H PRN for heart rate >130 - Patient Studies Lab Studies: Lab Studies 08/05/17 08/05/17 08/05/17 Range/Units 11:12 06:15 06:15 WBC 9.5 (4.5-11.0) 10^3/ul RBC 3.11 L (3.5-6.1) 10^6/uL Hgb 8.2 L (14.0-18.0) g/dL Hct 26.4 L (42.0-52.0) % MCV 84.9 (80.0-105.0) fl MCH 26.4 (25.0-35.0) pg MCHC 31.1 (31.0-37.0) g/dl RDW 18.7 H (11.5-14.5) % Plt Count 216 (120.0-450.0) 10^3/uL MPV 10.3 (7.0-11.0) fl Sodium 147 (132-148) mmol/L Potassium 4.8 (3.6-5.0) mmol/L Chloride 113 H (98-107) mmol/L Carbon Dioxide 21 (21-33) mmol/L Anion Gap 17 (10-20) BUN 52 H (7-21) mg/dL Creatinine 4.6 H (0.8-1.5) mg/dl Est GFR ( Amer) 15 Est GFR (Non-Af Amer) 12 POC Glucose (mg/dL) 98 (65-110) mg/dL Random Glucose 92 (70-110) mg/dL Calcium 8.3 L (8.4-10.5) mg/dL Phosphorus 5.4 H (2.5-4.5) mg/dL Magnesium 1.9 (1.7-2.2) mg/dL Total Bilirubin 0.6 (0.2-1.3) mg/dL AST 41 (17-59) U/L ALT 32 (7-56) U/L Alkaline Phosphatase 241 H (38-126) U/L Total Protein 6.3 (5.8-8.3) g/dL Albumin 3.1 (3.0-4.8) g/dL Globulin 3.2 gm/dL Albumin/Globulin Ratio 1.0 L (1.1-1.8) 08/04/17 08/04/17 08/04/17 Range/Units 16:10 11:38 07:27 WBC (4.5-11.0) 10^3/ul RBC (3.5-6.1) 10^6/uL Hgb (14.0-18.0) g/dL Hct (42.0-52.0) % MCV (80.0-105.0) fl MCH (25.0-35.0) pg MCHC (31.0-37.0) g/dl RDW (11.5-14.5) % Plt Count (120.0-450.0) 10^3/uL MPV (7.0-11.0) fl Sodium (132-148) mmol/L Potassium (3.6-5.0) mmol/L Chloride (98-107) mmol/L Carbon Dioxide (21-33) mmol/L Anion Gap (10-20) BUN (7-21) mg/dL Creatinine (0.8-1.5) mg/dl Est GFR ( Amer) Est GFR (Non-Af Amer) POC Glucose (mg/dL) 115 H 127 H 93 (65-110) mg/dL Random Glucose (70-110) mg/dL Calcium (8.4-10.5) mg/dL Phosphorus (2.5-4.5) mg/dL Magnesium (1.7-2.2) mg/dL Total Bilirubin (0.2-1.3) mg/dL AST (17-59) U/L ALT (7-56) U/L Alkaline Phosphatase (38-126) U/L Total Protein (5.8-8.3) g/dL Albumin (3.0-4.8) g/dL Globulin gm/dL Albumin/Globulin Ratio (1.1-1.8) Laboratory Results - last 24 hr 08/04/17 08/04/17 08/04/17 07:27 11:38 16:10 WBC RBC Hgb Hct MCV MCH MCHC RDW Plt Count MPV Sodium Potassium Chloride Carbon Dioxide Anion Gap BUN Creatinine Est GFR ( Amer) Est GFR (Non-Af Amer) POC Glucose (mg/dL) 93 127 H 115 H Random Glucose Calcium Phosphorus Magnesium Total Bilirubin AST ALT Alkaline Phosphatase Total Protein Albumin Globulin Albumin/Globulin Ratio 08/05/17 08/05/17 08/05/17 06:15 06:15 11:12 WBC 9.5 RBC 3.11 L Hgb 8.2 L Hct 26.4 L MCV 84.9 MCH 26.4 MCHC 31.1 RDW 18.7 H Plt Count 216 MPV 10.3 Sodium 147 Potassium 4.8 Chloride 113 H Carbon Dioxide 21 Anion Gap 17 BUN 52 H Creatinine 4.6 H Est GFR ( Amer) 15 Est GFR (Non-Af Amer) 12 POC Glucose (mg/dL) 98 Random Glucose 92 Calcium 8.3 L Phosphorus 5.4 H Magnesium 1.9 Total Bilirubin 0.6 AST 41 ALT 32 Alkaline Phosphatase 241 H Total Protein 6.3 Albumin 3.1 Globulin 3.2 Albumin/Globulin Ratio 1.0 L EKG/Cardiology Studies: Cardiology / EKG Studies 08/05/17 04:17 EKG [ELECTROCARDIOGRAM] Stat Comment: Reason For Exam: Asystole Critical Care Progress Note - Nutrition Nutrition: Nutrition Category Date Time Status Modified [Dysphagia/Modified Consistency Diet] [DIET] Diets 08/04/17 Breakfast Ordered Attending/Attestation - Attestation I have personally seen and examined this patient.: Yes I have fully participated in the care of the patient.: Yes I have reviewed all pertinent clinical information: Yes Notes (Text): 08/05/17 15:33 patient is calmer, able to protect airways. hemodynamically and respiratory stable. was able to toelrate some oral nutrition. ok to downgrade to [facility] time 40 min
[2017-08-02] MEDS: Valproate 500 MG in Sodium Chloride 0.9% 100 ML IVPB SCH (22:07)
--- NOTE | 2017-08-02 22:43 | CARD ---
APPROVED REPORT EKG Measurement Heart [id number] <Conclusion> Sinus rhythm with premature atrial complexes Abnormal QRS-T angle, consider primary T wave abnormality Abnormal ECG
--- NOTE | 2017-08-02 22:47 | CP.PCM.HP ---
History of Present Illness - History of Present Illness History of Present Illness: Please note history is limited and from family at bedside 87yo male PMHx HTN, Kidney disease? ORIF 3 weeks ago, dementia brought in by EMS after an episode of unresponsiveness and cardiac arrest. Patient was complaining of chest pain intermittently and around 10:30pm patient began to feel short of breath and "passed out." As per family, he "dropped to the floor" but they are unsure if he hit his head. They denied noticing any bowel/bladder incontinence, tremulousness, and biting of the tongue. When family called 911 they were told to start chest compressions which they did. When EMS arrived, as per family, patient was arousable and transported to [facility] [place] [place] ED. In the ER patient became bradypneic and pulseless. CPR started and patient was given 1 dose of epi and ROSC was achieved. Patient was then intubated and placed on the vent and sedated. Of note patient had a recent fall 1 month ago and fractured his R hip for which he was admitted to [facility] and had and ORIF. Patient was on 30mg lovenox at home. As per family, at baseline patient is oriented with periods of confusion- especially at night. Since discharge from [facility] he was unable to move and had to be carried everywhere. During patient's stay at [facility] he was noted to have worsening kidney function but dialysis was advised against due to patient's age and comorbidities. PMD: None PMHx: HTN, kidney dz? 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[place]; moved to [place] from [place] 3 years ago ROS: unobtainable secondary to patient condition Present on Admission - Present on Admission Any Indicators Present on Admission: No Review of Systems - Review of Systems Systems not reviewed;Unavailable: Intubated Past Patient History - Infectious Disease Hx of Infectious Diseases: None - Past Social History Smoking Status: Former Smoker - CARDIAC Hx Hypertension: Yes - PULMONARY Hx Respiratory Disorders: No - NEUROLOGICAL Hx Neurological Disorder: Yes Hx Dementia: Yes - HEENT Hx HEENT Problems: No - RENAL Hx Chronic Kidney Disease: Yes Other/Comment: kidney disease - ENDOCRINE/METABOLIC Hx Endocrine Disorders: No - HEMATOLOGICAL/ONCOLOGICAL Hx Blood Disorders: No - INTEGUMENTARY Hx Dermatological Problems: No - MUSCULOSKELETAL/RHEUMATOLOGICAL Hx Falls: Yes Hx Fractures: Yes - GASTROINTESTINAL Hx Gastrointestinal Disorders: No - GENITOURINARY/GYNECOLOGICAL Hx Genitourinary Disorders: No - PSYCHIATRIC Hx Psychophysiologic Disorder: No Hx Substance Use: No - SURGICAL HISTORY Hx Surgeries: Yes Hx Joint Replacement: Yes Hx Orthopedic Surgery: Yes - ANESTHESIA Hx Anesthesia: Yes Hx Anesthesia Reactions: No Hx Malignant Hyperthermia: No Meds Allergies/Adverse Reactions: Allergies Allergy/AdvReac Type Severity Reaction Status Date / Time No Known Allergies Allergy Verified 07/30/17 23:30 Physical Exam - Constitutional Appears: Cachectic, Chronically Ill - Head Exam Head Exam: ATRAUMATIC, NORMAL INSPECTION, NORMOCEPHALIC - Eye Exam Eye Exam: PERRL - ENT Exam ENT Exam: Mucous Membranes Moist, Normal Oropharynx (ET tube in place) - Neck Exam Neck exam: Negative for: Lymphadenopathy - Respiratory Exam Respiratory Exam: Rales (b/l), Rhonchi (b/l), Respiratory Distress (intubated on vent (100, 5, 12, 500)), NORMAL BREATHING PATTERN. absent: Accessory Muscle Use, Clear to Auscultation Bilateral, Wheezes - Cardiovascular Exam Cardiovascular Exam: Tachycardia, Irregular Rhythm, +S1, +S2 - GI/Abdominal Exam GI & Abdominal Exam: Normal Bowel Sounds, Soft. absent: Diminished Bowel Sounds , Firm - Rectal Exam Rectal Exam: Deferred - Extremities Exam Extremities exam: Positive for: normal capillary refill, pedal edema (+1 left + 2 right), pedal pulses present - Neurological Exam Additional comments: sedated on diprivan gtt - Skin Skin Exam: Dry, Intact Results - Vital Signs Recent Vital Signs: Last Vital Signs Temp 97.6 F 08/02/17 18:00 Pulse 91 H 08/02/17 22:39 Resp 18 08/02/17 18:00 BP 122/65 08/02/17 22:39 Pulse Ox 95 08/02/17 18:00 - Labs Result Diagrams: 08/02/17 06:30 08/02/17 06:30 Labs: Laboratory Results - last 24 hr 08/02/17 08/02/17 08/02/17 06:30 06:30 07:33 WBC 6.7 D RBC 2.80 L Hgb 7.5 L Hct 23.4 L MCV 83.6 MCH 26.8 MCHC 32.1 RDW 19.0 H Plt Count 292 MPV 9.8 Gran % 60.3 Lymph % (Auto) 26.5 [place] % (Auto) 11.0 H Eos % (Auto) 1.7 Baso % (Auto) 0.5 Gran # 4.02 Lymph # (Auto) 1.8 [place] # (Auto) 0.7 H Eos # (Auto) 0.1 Baso # (Auto) 0.03 Neutrophils % (Manual) 67 Lymphocytes % (Manual) 20 L Monocytes % (Manual) 6 Eosinophils % (Manual) 2 Metamyelocytes % 1 Myelocytes % 4 Sodium 148 Potassium 4.7 Chloride 117 H Carbon Dioxide 21 Anion Gap 14 BUN 43 H Creatinine 3.8 H Est GFR ( Amer) 18 Est GFR (Non-Af Amer) 15 POC Glucose (mg/dL) 91 Random Glucose 109 Calcium 8.7 Phosphorus 4.6 H Magnesium 1.9 Total Bilirubin 0.3 AST 50 ALT 24 Alkaline Phosphatase 214 H Total Protein 5.7 L Albumin 2.7 L Globulin 3.0 Albumin/Globulin Ratio 0.9 L 08/02/17 08/02/17 10:50 18:56 WBC RBC Hgb Hct MCV MCH MCHC RDW Plt Count MPV Gran % Lymph % (Auto) [place] % (Auto) Eos % (Auto) Baso % (Auto) Gran # Lymph # (Auto) [place] # (Auto) Eos # (Auto) Baso # (Auto) Neutrophils % (Manual) Lymphocytes % (Manual) Monocytes % (Manual) Eosinophils % (Manual) Metamyelocytes % Myelocytes % Sodium Potassium Chloride Carbon Dioxide Anion Gap BUN Creatinine Est GFR ( Amer) Est GFR (Non-Af Amer) POC Glucose (mg/dL) 105 143 H Random Glucose Calcium Phosphorus Magnesium Total Bilirubin AST ALT Alkaline Phosphatase Total Protein Albumin Globulin Albumin/Globulin Ratio Assessment & Plan - Assessment and Plan (Free Text) Assessment: 87yo male PMHx HTN, Kidney disease? ORIF 3 weeks ago, dementia brought in by EMS after an episode of unresponsiveness s/p cardiac arrest in the ER. Patient admitted to MICU Plan: Neuro -baseline dementia -sedated on propofol gtt -f/u head CT -f/u UDS -HoB above 30 degrees -Aspiration precautions Cardio -s/p cardiac arrest in the field and ED -EKG on admission showed Afib with RVR -f/u trop x 2 -Levophed gtt -maintain MAP > 65mmHg -f/u lipid panel and thyroid studies -f/u Echo -Cardio consulted Pulm -intubated on vent (100, 5, 12, 500) -Duoneb 3ml q6 -f/u AM CXR and ABG -f/u VQ scan -Maintain spO2 above 90% -extensive hx of tobacco abuse GI -no acute issues Nephro -elevated BUN/Cr on admission 46/2.8 -NS @ 60 -f/u renal u/s -monitor electrolytes -Monitor strict Is and Os -Nephro consulted ID -f/u pancultures and procal -coverage for HCAP Vanc and Zosyn -ID consulted Endo -Accucheck -RISS low -f/u HgbA1c -maintain euglycemia GI ppx: Protonix DVT ppx: will start VTE ppx after head CT Diet: NPO Discussed with Dr. Megan Ferreira PGY2
[2017-08-02] MEDS ORDERED: Albuterol-Ipratrop 3 mg / 0.5 (3 ml) UD IH ONE (23:53)
[2017-08-03] MEDS: Piperacillin/Tazobact 2.25gm 2.25 GM/100 ML BAG IVPB SCH ×2 (00:05→05:58)
[2017-08-03 00:13] LABS: ARTERIAL BLOOD GAS HCO3 18.8 mmol/L (21-28); ARTERIAL BLOOD GAS HEMOGLOBIN 7.5 g/dL (11.7-17.4); ARTERIAL BLOOD GAS O2 CAPACITY 10.4 mL/dl (16-24); ARTERIAL BLOOD GAS O2 CONTENT 10.3 ML/dl (15-23); ARTERIAL BLOOD GAS O2 SAT 99.2 % (95-98); ARTERIAL BLOOD GAS PCO2 34 mm/Hg (35-45); ARTERIAL BLOOD GAS PH 7.35 (7.35-7.45); ARTERIAL BLOOD GAS TCO2 19.8 mmol.L (22-28)
[2017-08-03] MEDS: Insulin Lispro (humaLOG) LOW Coverage SC SCH ×4 (00:22→19:05)
[2017-08-03] MEDS: Vancomycin 1gm in NS 250ml 1 GM/250 ML BAG IVPB SCH ×2 (01:35→10:12)
[2017-08-03] MEDS: Albuterol-Ipratrop 3 mg / 0.5 (3 ml) UD IH SCH ×4 (03:00→20:11)
[2017-08-03] MEDS: Metoprolol 1 mg/ml Inj IVP SCH ×4 (04:16→21:30)
[2017-08-03] MEDS: Dextrose 5%/0.9% NS 1,000 ML IV SCH (05:46)
[2017-08-03 06:52] LABS: BASO # 0.06 K/mm3 (0.0-2.0); BASO % 0.7 % (0.0-3.0); EOS # 0.2 (0.0-0.7); EOS % 2.3 % (1.5-5.0); GRAN # 5.13 (1.4-6.5); GRAN % 62.9 % (50.0-68.0); HEMOGLOBIN 7.9 g/dL (14.0-18.0); LYMPH # 1.9 (1.2-3.4); LYMPH % 23.7 % (22.0-35.0); MEAN CELL VOLUME 85.3 fl (80.0-105.0); MEAN CORPUSCULAR HEMOGLOBIN 26.3 pg (25.0-35.0); MEAN CORPUSCULAR HGB CONC 30.9 g/dl (31.0-37.0); MEAN PLATELET VOLUME 10.2 fl (7.0-11.0); MONO # 0.9 (0.1-0.6); MONO % 10.4 % (1.0-6.0); RED CELL DISTRIBUTION WIDTH 19.4 % (11.5-14.5); WHITE BLOOD COUNT 8.2 10^3/ul (4.5-11.0)
[2017-08-03 07:04] LABS: ALB/GLOB RATIO 0.9 (1.1-1.8); ALBUMIN 3.1 g/dL (3.0-4.8); CALCIUM 8.9 mg/dL (8.4-10.5)
--- NOTE | 2017-08-03 08:35 | CON ---
DATE: 08/01/2017 HISTORY OF PRESENT ILLNESS: The patient is an 87-year-old Icelandic-speaking male with a history of dementia, no known psychiatric history, who was brought in by EMS to the ER in 07/30/2017 due to complaints of chest pain and subsequently went into cardiac arrest while he was being evaluated in the ER. The patient was resuscitated and intubated, and recently extubated. Psychiatry was called due to the patient's reported agitation on the unit. I reviewed recent notes, which indicated that the patient has been restless and in general noncooperative on the unit. I met with the patient at bedside and he was seen moaning and mumbling to himself in Icelandic. I attempted to get his attention on numerous occasions, Speak and Translate archana as well as speaking with him in Eritrean; however, the patient would not open his eyes, would not direct his attention to me, and he does not respond to commands consistent with staff notes. Icelandic translation was attempted the only two intelligible things that came out of his mouth were the words "forbid" as well as "oh my, oh my." The patient would not answer questions regarding pain, awareness to his current situation, mood etc., etc. Mental status exam could not be accomplished mainly due to the patient's dementia, likely delirium, and possible language barrier. Please note this provider did attempt to obtain Icelandic translators from around the hospital; however, Icelandic translators were not available. I also attempted to use the translation services in the hospital; however, the dobie worker was not operational during my attempt at bedside this morning. The only functional translation that could be accomplished was Speak and Translate. Of note, prior notes did indicate that the patient at baseline is oriented with periods of confusion, anyway at baseline. His insight and judgment at this time are poor. Prognosis is guarded. The patient has multiple medical issues. Review of prior notes indicate that the patient was hospitalized at [facility] recently and has a history of renal insufficiency and dialysis was advised again. This may be contributed to the patient's current delirium as well as current medical issues noted in reviewed progress notes for this hospitalization. Please review medical notes for complete list of the patient's current medical issues. PSYCHIATRIC HISTORY: The patient does not appear to have any form of psychiatric history and the hospitalizations of patient were not noted in the [facility]. SOCIAL HISTORY: The patient is an Icelandic-speaking male and resides with his family and has a history of dementia. Other social history could not be obtained. RELEVANT PSYCHIATRIC MEDICATIONS: The patient is not on any current psychiatric medications, however, was given Geodon injections on 2 occasions, 20 mg IM last night between 9:00 to 10:00 p.m as well as Geodon 10 mg IM at 1:00 p.m. IMPRESSION: Dementia complicated by delirium due to multiple medical issues. Positive behavioral disturbance. RECOMMENDATIONS: I recommend that the patient be treated with Haldol at a very conservative dose of 0.25 mg every 4 hours p.r.n. for agitation. I am not familiar with this patient; however, he has multiple medical issues and he is of advanced age and his provider has to be conservative with my recommendations. Psychiatry cannot make a patient unconscious due to agitation; however, we can help the patient relax a little bit, but again it has to be done conservatively in this older gentleman. Medical team should stay away from secondary-generation antipsychotics like Geodon injectables due to their tendency to prolong QT intervals, especially in the elderly. Psychiatry will follow up the patient tolerance to medications and behaviors. Kristin Baires MD
--- NOTE | 2017-08-03 08:43 | RAD ---
HISTORY: congestion COMPARISON: 08/01/2017 FINDINGS: LUNGS: Interval improvement in pulmonary edema. PLEURA: Stable pleural effusions. CARDIOVASCULAR: Persisting cardiomegaly OSSEOUS STRUCTURES: No significant abnormalities. VISUALIZED UPPER ABDOMEN: Normal. OTHER FINDINGS: Removal of support apparatus since the prior study: Nasogastric tube and right IJ catheter None. IMPRESSION: Improving pulmonary edema.
[2017-08-03] MEDS: Valproate 500 MG in Sodium Chloride 0.9% 100 ML IVPB SCH ×2 (10:29→22:45)
--- NOTE | 2017-08-03 12:23 | CP.PCM.CON ---
History of Present Illness - History of Present Illness History of Present Illness: Palliative consult requested by Dr Lizandro Agosto Reason: Goals of care and advance care planning 87 year Portuguese speaking male with hsity of dementia who presented with chest pain and subsequently suffered a cardiopulmonary arrest upon arrival> ACLS> intubated> ROSC. Hgb 8.5, he has since been extubated and is now seen in telemetry. On presentation he was found to be anemic, HGB 8.7, BUN 46, creat 2.8. AMS work up revealed hemorrhagic stroke at level of third ventricle. PMHx:dementia, CKD stage IV, HTN,dementia, right hip Fx Social History: Smoker, no alcohol or drug use. , lives with family. PSH: ORIF of right hip Family History: Non contributory Advance Care Planning: The patient does not have an Advanced Directive. Review of Systems: As per HPI, patient demented and unable to to respond. > Past Patient History - Infectious Disease Hx of Infectious Diseases: None - Past Social History Smoking Status: Former Smoker - CARDIAC Hx Hypertension: Yes - PULMONARY Hx Respiratory Disorders: No - NEUROLOGICAL Hx Neurological Disorder: Yes Hx Dementia: Yes - HEENT Hx HEENT Problems: No - RENAL Hx Chronic Kidney Disease: Yes Other/Comment: kidney disease - ENDOCRINE/METABOLIC Hx Endocrine Disorders: No - HEMATOLOGICAL/ONCOLOGICAL Hx Blood Disorders: No - INTEGUMENTARY Hx Dermatological Problems: No - MUSCULOSKELETAL/RHEUMATOLOGICAL Hx Falls: Yes Hx Fractures: Yes - GASTROINTESTINAL Hx Gastrointestinal Disorders: No - GENITOURINARY/GYNECOLOGICAL Hx Genitourinary Disorders: No - PSYCHIATRIC Hx Psychophysiologic Disorder: No Hx Substance Use: No - SURGICAL HISTORY Hx Surgeries: Yes Hx Joint Replacement: Yes Hx Orthopedic Surgery: Yes - ANESTHESIA Hx Anesthesia: Yes Hx Anesthesia Reactions: No Hx Malignant Hyperthermia: No Meds Allergies/Adverse Reactions: Allergies Allergy/AdvReac Type Severity Reaction Status Date / Time No Known Allergies Allergy Verified 07/30/17 23:30 - Medications Medications: Current Medications Acetaminophen (Tylenol 325mg Tab) 650 mg PO Q4 PRN PRN Reason: Fever >100.4 F Albuterol/Ipratropium (Duoneb 3 Mg/0.5 Mg (3 Ml) Ud) 3 ml IH [id number] JAIMIE Last Admin: 08/03/17 07:44 Dose: 3 ml Aspirin (Ecotrin) 81 mg PO DAILY JAIMIE Last Admin: 08/01/17 13:15 Dose: Not Given Doxercalciferol (Hectorol) 0.5 mcg NG DAILY [facility] Last Admin: 08/03/17 10:13 Dose: Not Given Enoxaparin Sodium (Lovenox) 30 mg SC DAILY [facility] PRN Reason: Protocol Last Admin: 08/01/17 09:59 Dose: 30 mg Haloperidol (Haldol) 0.25 mg PO Q4 PRN; Protocol PRN Reason: Agitation Dextrose/Sodium Chloride (Dextrose 5%/0.9% Ns 1000 Ml) 1,000 mls @ 60 mls/hr IV .[id number] [facility] Last Admin: 08/03/17 05:46 Dose: Not Given Valproate Sodium 500 mg/ (Sodium Chloride) 105 mls @ 100 mls/hr IVPB Q12 [facility] Last Admin: 08/03/17 10:29 Dose: 100 mls/hr Vancomycin HCl (Vancomycin 1gm) 1 gm in 250 mls @ 167 mls/hr IVPB DAILY [facility] PRN Reason: Protocol Last Admin: 08/03/17 10:12 Dose: 167 mls/hr Insulin Human Lispro (Humalog Low) 0 units SC 0000,0600,1200,1800 [facility] PRN Reason: Protocol Last Admin: 08/03/17 08:01 Dose: Not Given Metoprolol Tartrate (Lopressor) 5 mg IVP Q6H [facility] Last Admin: 08/03/17 10:13 Dose: 5 mg Pantoprazole Sodium (Protonix Inj) 40 mg IVP DAILY [facility] Last Admin: 08/03/17 10:13 Dose: 40 mg Verapamil HCl (Verapamil Inj) 2.5 mg IVP Q6H PRN PRN Reason: for heart rate >130 Physical Exam - Constitutional Appears: Cachectic, Chronically Ill Additional comments: restless - Head Exam Head Exam: NORMAL INSPECTION - Eye Exam Eye Exam: Normal appearance, PERRL - ENT Exam ENT Exam: Mucous Membranes Moist, Normal Oropharynx - Neck Exam Neck exam: Positive for: Normal Inspection Additional comments: right subclavian line intact, no JVD - Respiratory Exam Respiratory Exam: Decreased Breath Sounds, NORMAL BREATHING PATTERN - Cardiovascular Exam Cardiovascular Exam: REGULAR RHYTHM, +S1, +S2 - GI/Abdominal Exam GI & Abdominal Exam: Normal Bowel Sounds, Soft - Extremities Exam Extremities exam: Positive for: pedal edema, pedal pulses present - Back Exam Back exam: NORMAL INSPECTION - Neurological Exam Neurological exam: Altered - Psychiatric Exam Additional comments: restless - Skin Skin Exam: Dry, Pallor - Additional Findings Additional findings: palliative performance scale rating 40% Results - Vital Signs Recent Vital Signs: Last Vital Signs Temp 98.4 F 08/03/17 06:00 Pulse 72 08/03/17 10:13 Resp 22 08/03/17 06:00 BP 121/68 08/03/17 06:00 Pulse Ox 94 L 08/03/17 06:00 - Labs Result Diagrams: 08/03/17 05:45 08/03/17 05:45 Labs: Laboratory Results - last 24 hr 08/02/17 08/03/17 08/03/17 18:56 00:05 05:45 WBC 8.2 D RBC 3.00 L Hgb 7.9 L Hct 25.6 L MCV 85.3 MCH 26.3 MCHC 30.9 L RDW 19.4 H Plt Count 281 MPV 10.2 Gran % 62.9 Lymph % (Auto) 23.7 [place] % (Auto) 10.4 H Eos % (Auto) 2.3 Baso % (Auto) 0.7 Gran # 5.13 Lymph # (Auto) 1.9 [place] # (Auto) 0.9 H Eos # (Auto) 0.2 Baso # (Auto) 0.06 pCO2 34 L pO2 81.0 HCO3 18.8 L ABG pH 7.35 ABG Total CO2 19.8 L ABG O2 Saturation 99.2 H ABG O2 Content 10.3 L ABG Base Excess -6.2 L ABG Hemoglobin 7.5 L ABG Carboxyhemoglobin 2.1 H POC ABG HHb (Measured) 0.8 ABG Methemoglobin 0.9 ABG O2 Capacity 10.4 L Hgb O2 Saturation 96.2 FiO2 36.0 Sodium Potassium Chloride Carbon Dioxide Anion Gap BUN Creatinine Est GFR ( Amer) Est GFR (Non-Af Amer) POC Glucose (mg/dL) 143 H Random Glucose Calcium Phosphorus Magnesium Total Bilirubin AST ALT Alkaline Phosphatase Total Protein Albumin Globulin Albumin/Globulin Ratio 08/03/17 08/03/17 05:45 11:34 WBC RBC Hgb Hct MCV MCH MCHC RDW Plt Count MPV Gran % Lymph % (Auto) [place] % (Auto) Eos % (Auto) Baso % (Auto) Gran # Lymph # (Auto) [place] # (Auto) Eos # (Auto) Baso # (Auto) pCO2 pO2 HCO3 ABG pH ABG Total CO2 ABG O2 Saturation ABG O2 Content ABG Base Excess ABG Hemoglobin ABG Carboxyhemoglobin POC ABG HHb (Measured) ABG Methemoglobin ABG O2 Capacity Hgb O2 Saturation FiO2 Sodium 152 H Potassium 4.8 Chloride 118 H Carbon Dioxide 22 Anion Gap 17 BUN 45 H Creatinine 4.3 H Est GFR ( Amer) 16 Est GFR (Non-Af Amer) 13 POC Glucose (mg/dL) 105 Random Glucose 100 Calcium 8.9 Phosphorus 5.0 H Magnesium 2.0 Total Bilirubin 0.4 AST 55 ALT 33 Alkaline Phosphatase 248 H Total Protein 6.3 Albumin 3.1 Globulin 3.2 Albumin/Globulin Ratio 0.9 L Assessment & Plan - Assessment and Plan (Free Text) Assessment: 87 year old male who is admitted with chest pain, cardiopulmonary arrest s/p ACLS s/p extubation,anemia, CKD, hemorrhagic stroke and advanced dementia. The patient is altered, periodically agitated and restless. He is non conversational even when spoken to in Portuguese. He needs assist with most ADL's. Speech and swallow recommends pureed diet, honey thick consistency of liquids and strict aspiration precautions. His palliative prognostic score predicts greater than 30 day survival. Patients nephew at bedside. Explained the intention is to discuss goals of care and care planning. Nephew states that patients son will be in later today.Advised that I will return later to speak with son I later met with patients son. Portuguese human services supervisor present. Lengthy discussion regarding goals of care and advanced care planning ensued. Family understands ramification of CPR/inubation/dialysis. Son completed POLST directive, a copy is on the chart. The patient is now DNR/DNI. Family also does not want dialysis or PEG. Goals of care and advanced care planning discussions with family, 30 minutes. Plan: Cardiac status:Echo As per cardiology recommendations , ASA, low dose beta gita, Lovenox. Hemorrhagic Stroke: Neuro recommendations, Depakote 500 mg twice daily. Renal/CKD: monitor labs, no renal replacement therapy at this time Delirium: psych cautions use of anti psycholitycs. Haldol 0.25 mg as needed Goals of care and Advance care Planning, POLST:DNR/DNI
--- NOTE | 2017-08-03 12:29 | CP.PCM.PN ---
<Nixon Perkins - Last Filed: 08/03/17 12:24> Subjective - Date & Time of Evaluation Date of Evaluation: 08/03/17 Time of Evaluation: 07:20 - Subjective Subjective: M Progress Note for Hospitalist Service Patient seen and examined at bedside on the floors. Overnight, no acute events , but remains confused/poorly verbal. Wet sounding breath sounds on exam today , excess secretions heard when auscultating neck but staff unable to oral suction pt as he fights it and is too combative for it. Son briefly at bedside as per nursing staff after exam, he signed release of information form to be sent to [facility]. Objective - Vital Signs/Intake and Output Vital Signs (last 24 hours): Temp Pulse Resp BP Pulse Ox 98.4 F 72 22 121/68 94 L 08/03/17 06:00 08/03/17 10:13 08/03/17 06:00 08/03/17 06:00 08/03/17 06:00 Intake and Output: 08/03/17 08/03/17 06:59 18:59 Intake Total 0 632 Output Total 1000 Balance -1000 632 - Medications Medications: Current Medications Acetaminophen (Tylenol 325mg Tab) 650 mg PO Q4 PRN PRN Reason: Fever >100.4 F Albuterol/Ipratropium (Duoneb 3 Mg/0.5 Mg (3 Ml) Ud) 3 ml IH [id number] [facility] Last Admin: 08/03/17 07:44 Dose: 3 ml Aspirin (Ecotrin) 81 mg PO DAILY [facility] Last Admin: 08/01/17 13:15 Dose: Not Given Doxercalciferol (Hectorol) 0.5 mcg NG DAILY [facility] Last Admin: 08/03/17 10:13 Dose: Not Given Enoxaparin Sodium (Lovenox) 30 mg SC DAILY [facility] PRN Reason: Protocol Last Admin: 08/01/17 09:59 Dose: 30 mg Haloperidol (Haldol) 0.25 mg PO Q4 PRN; Protocol PRN Reason: Agitation Dextrose/Sodium Chloride (Dextrose 5%/0.9% Ns 1000 Ml) 1,000 mls @ 60 mls/hr IV .[id number] [facility] Last Admin: 08/03/17 05:46 Dose: Not Given Valproate Sodium 500 mg/ (Sodium Chloride) 105 mls @ 100 mls/hr IVPB Q12 [facility] Last Admin: 08/03/17 10:29 Dose: 100 mls/hr Vancomycin HCl (Vancomycin 1gm) 1 gm in 250 mls @ 167 mls/hr IVPB DAILY [facility] PRN Reason: Protocol Last Admin: 08/03/17 10:12 Dose: 167 mls/hr Insulin Human Lispro (Humalog Low) 0 units SC 0000,0600,1200,1800 [facility] PRN Reason: Protocol Last Admin: 08/03/17 12:21 Dose: Not Given Metoprolol Tartrate (Lopressor) 5 mg IVP Q6H [facility] Last Admin: 08/03/17 10:13 Dose: 5 mg Pantoprazole Sodium (Protonix Inj) 40 mg IVP DAILY [facility] Last Admin: 08/03/17 10:13 Dose: 40 mg Verapamil HCl (Verapamil Inj) 2.5 mg IVP Q6H PRN PRN Reason: for heart rate >130 - Labs Labs: 08/03/17 05:45 08/03/17 05:45 PT 12.4 SECONDS (9.4-12.5) 07/30/17 23:30 INR 1.09 (0.93-1.08) H 07/30/17 23:30 APTT 37.2 Seconds (25.1-36.5) H 07/30/17 23:30 - Additional Findings Additional findings: - Constitutional Appears: Non-toxic, Confused, Chronically Ill - Head Exam Head Exam: ATRAUMATIC, NORMAL INSPECTION, NORMOCEPHALIC - Eye Exam Eye Exam: Normal appearance. absent: Conjunctival injection, Scleral icterus Pupil Exam: absent: Irregular, Unequal - ENT Exam ENT Exam: Mucous Membranes Moist - Neck Exam Neck Exam: crackles on auscultation, more prominent on exhalation than inhalation but present during both - Respiratory Exam Respiratory Exam: Rhonchi (bibasilar ronchi improved compared to yesterday, some ronchourous sounds in neck appreciated; both most prominent on exhalation) , NORMAL BREATHING PATTERN. absent: Accessory Muscle Use, Decreased Breath Sounds, Rales, Wheezes - Cardiovascular Exam Cardiovascular Exam: Irregular Rhythm, +S1, +S2. absent: Bradycardia, Tachycardia, REGULAR RHYTHM, JVD, RRR, +S4 - GI/Abdominal Exam GI & Abdominal Exam: Soft, Normal Bowel Sounds. absent: Distended, Firm, Guarding, Rigid, Tenderness (patient unable to articulate pain, but no reaction suggestive on pain on palpation), Diminished Bowel Sounds, Hypoactive Bowel Sounds - Extremities Exam Extremities Exam: Normal Capillary Refill, Pedal Edema (right foot and ankle > left, trace in left, +1 in right foot and ankle, none bilaterally above SCDs) - Neurological Exam awake but does not appear fully alert, stares into distance, occasionally tracking different family members within room, bilateral wrist restraints, few spontaneous movements of extremities noted during exam - Psychiatric Exam unable to assess, non-verbal during exam - Skin Skin Exam: Dry, Intact, Normal Color, Warm Assessment and Plan - Assessment and Plan (Free Text) Assessment: This is an 87 yo male with PMH of HTN, CKD Stg IV, ORIF 3 weeks ago, and dementia brought in by EMS after an episode of unresponsiveness and possible cardiac arrest at home, s/p cardiac arrest in the ED, ROSC achieved after 1 dose of epi. Was intubated after ED code, now day 4 s/p extubation, weaned off levophed, and is transferred to telemetry. Palliative service has been consulted for POA and goals of care given patient's poor overall prognosis. 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 for slab off mill tender, would start baby aspirin, low-dose beta-gita, lovenox 30u SC daily; ASA and Lovenox on hold currently -weaned off Levophed, maintaining MAP > 65 -Extubated, protecting airway -as per ID, procal negative and cx negative thus far, can d/c abx and monitor, less likely aspiration PNA -Hgb 7.9 (was 7.5), continue to monitor, transfuse if Hgb < 7 or dropping with signs of acute hemorrage (hemodynamic instability, end-organ dmg) 2) Hemorrhagic stroke -CTH shows 1.7 x 2.5 x 1.7 hemorrhage at level of 3rd vent (patient had a hx of hemorrhagic stroke 3 years ago as per family) -Neuro following, appreciate all recs: recs repeat head CT since MRI unreliable due to all motion artifacting, if stable/resorbing can start heparin subq for DVT ppx, hold off on other anticoagulation/antiplatelets -repeat Head CT read as unchanged, but said less likely bleed over obstructing colloid cyst; defer to Neuro to start heparin SC or not -family reports hx of hemorrhagic stroke 3 yrs prior, but as per neuro, would have been resorbed by now, findings on scans represent new event -depakote 500mg BID IV for mood stabilization and seizure ppx as per Neuro 3) TESSY on CKD -Cr worsened to 4.3 today (was 3.8) -as per Nephro, baseline is CKD Stage IV, due to poor prognosis and overall state pt is not a candidate for dialysis, recs involving Palliative Care -Will switch from NS 60cc/hr to D5W given hypernatremia of 152 on AM labs today -strict I's and O's, daily weights 4) Delirium overlying dementia -strict day/night cycle as feasible -psych consulted, recs cautious use of antipsychotics given ADR profile in the elderly -at high risk for delirium due to hx dementia, severity of illness, ICU placement, elderly population 5) Hx COPD -continue duonebs -V/q negative for PE -maintain SaO2 > 90%, avoid overoxygenation in COPD pt to prevent suppression of respiratory drive -excess oral secretions on neck auscultation, oral care and suctioning as able, given patient's combativeness with such efforts Dispo: Tele, pending Neuro's decision on whether to start heparin for DVT ppx given CT head findings, pending Palliative assessment and discussion with family FEN: NPO, D5W 60cc/hr Access: Peripheral IV; Right IJ TLC & NGT removed Consults: Nephro, ID, Psych, ICU, Cardio, Neuro, Palliative Ppx: Protonix for GI, pending possible heparin sc for DVT (depending on repeat head CT findings) Patient seen, reviewed, and discussed with attending, Dr. Agosto <Antonio Agosto - Last Filed: 08/04/17 14:50> Objective - Vital Signs/Intake and Output Vital Signs (last 24 hours): Temp Pulse Resp BP Pulse Ox 98 F 66 18 115/58 L 98 08/04/17 12:00 08/04/17 12:00 08/04/17 12:00 08/04/17 12:00 08/04/17 05:50 Intake and Output: 08/04/17 08/04/17 06:59 18:59 Intake Total 500 Output Total 400 Balance 100 - Medications Medications: Current Medications Acetaminophen (Tylenol 325mg Tab) 650 mg PO Q4 PRN PRN Reason: Fever >100.4 F Albuterol/Ipratropium (Duoneb 3 Mg/0.5 Mg (3 Ml) Ud) 3 ml IH [id number] [facility] Last Admin: 08/04/17 14:01 Dose: 3 ml Doxercalciferol (Hectorol) 0.5 mcg NG DAILY [facility] Last Admin: 08/03/17 10:13 Dose: Not Given Haloperidol (Haldol) 0.25 mg PO Q4 PRN; Protocol PRN Reason: Agitation Valproate Sodium 500 mg/ (Sodium Chloride) 105 mls @ 100 mls/hr IVPB Q12 [facility] Last Admin: 08/04/17 10:48 Dose: 100 mls/hr Dextrose (Dextrose 5% In Water 1000 Ml) 1,000 mls @ 60 mls/hr IV .[id number] [facility] Last Admin: 08/04/17 06:03 Dose: 60 mls/hr Insulin Human Lispro (Humalog Low) 0 units SC 0000,0600,1200,1800 [facility] PRN Reason: Protocol Last Admin: 08/04/17 06:09 Dose: Not Given Metoprolol Tartrate (Lopressor) 5 mg IVP Q6H [facility] Last Admin: 08/04/17 10:49 Dose: 5 mg Pantoprazole Sodium (Protonix Inj) 40 mg IVP DAILY [facility] Last Admin: 08/04/17 10:49 Dose: 40 mg Verapamil HCl (Verapamil Inj) 2.5 mg IVP Q6H PRN PRN Reason: for heart rate >130 - Labs Labs: 08/04/17 05:30 08/04/17 05:30 PT 12.4 SECONDS (9.4-12.5) 07/30/17 23:30 INR 1.09 (0.93-1.08) H 07/30/17 23:30 APTT 37.2 Seconds (25.1-36.5) H 07/30/17 23:30 Attending/Attestation - Attestation I have personally seen and examined this patient.: Yes I have fully participated in the care of the patient.: Yes I have reviewed all pertinent clinical information, including history, physical exam and plan: Yes Notes (Text): 08/04/17 14:32 attending note; Patient seen and examined with resident. patient is awake. Not communicating much. Confused and agitated at times. Patient is a 87-year-old [place] male admitted post cardiac arrest brief CPR. Patient has history of chronic kidney disease, right ORIF, questionable dementia versus psychiatric disorder. Elevated troponin; status post CPR. Monitor closely with assistant executive housekeeper. questionable intracranial hemorrhage; neurology evaluation appreciated.head CT showed colloid cysts versus hemorrhage. No new changes. we will hold aspirin. can start Chronic kidney disease; case discussed with racetrack steward in detail. As per racetrack steward his baseline creatinine was 4-5 at [facility] few weeks ago. monitor urine output. hypernatremia; continue D5W. Case discussed with speech And swallow specialist; patient can started on pure diet with supervision when families around/ for language issues. Family informed. palliative care evaluation appreciated. Patient is DNI DNR. Agitation; possible history of schizophrenia versus dementia. psychiatric evaluation appreciated. on Haldol when necessary. prognosis is poor.
--- NOTE | 2017-08-03 13:29 | PN ---
DATE: 08/03/2017 SUBJECTIVE: The patient is seen, lying in bed. He is awake. Eyes are open, he is moaning, does not follow any commands. PHYSICAL EXAMINATION: GENERAL: Elderly, thinly built male lying in bed. VITAL SIGNS: Blood pressure 132/62, heart rate 68, respiratory rate 18 to 24, temperature 98. HEENT: Normocephalic, atraumatic, positive pallor. NECK: Supple, no JVD. LUNGS: Bilateral rhonchi, prolonged expiration, bilateral wheezing. CARDIAC: S1, S2. Regular rate and rhythm. No murmur, no rub. ABDOMEN: Obese, distended, soft, nontender. Bowel sounds present. EXTREMITIES: No lower extremity edema. INTAKE AND OUTPUT: Urine output started as 1000 mL. LABORATORY DATA: WBC 8, hemoglobin 7.9, hematocrit 26, platelets 281. Sodium 152, potassium 4.8, chloride 118, CO2 22, BUN 45, creatinine 4.3, glucose 100, calcium 8.9, phosphorus 5, magnesium 2, AST 55, ALT 33, albumin 3.1. Cultures, no growth. CURRENT MEDICATIONS: D5 normal saline at 60, DuoNeb, Ecotrin, Haldol, Hectorol, Lopressor, Lovenox, Protonix, Tylenol, valproic acid, vancomycin 1 g daily, verapamil p.r.n. ASSESSMENT AND PLAN: 1. Altered mental status, status post cardiac arrest. 2. History of schizophrenia (?). 3. History of chronic kidney disease stage IV. 4. Severe anemia. 5. Hypernatremia. 6. History of recent right hip internal fixation. PLAN: 1. Mildly worsened renal function, continue IV fluids at maintenance, change to D5W at 60. 2. Continue Hectorol, give it IV, it cannot be given p.o. 3. Consider transfusing 1 unit of PRBC. 4. Overall prognosis is poor. 5. No plans for renal replacement therapy. 6. Palliative care consult. Gayle Fernandez MD cc: MD Karel (Delete if not dictated.)
--- NOTE | 2017-08-03 16:51 | PN ---
DATE: 08/03/2017 REASON FOR THE CONSULTATION AND FOLLOWUP: Status post cardiac arrest, status post CPR, intubated, now successfully extubated, altered mental status, n.p.o. SUBJECTIVE: The patient is lying flat on the bed, confused, 2-point restraint. PHYSICAL EXAMINATION: VITAL SIGNS: Temperature afebrile, heart rate 68, blood pressure 132/62. HEENT: PERRLA. Extraocular muscles intact. NECK: Supple. No carotid bruit. No thyromegaly. CHEST: Clear to auscultation. HEART: S1 and S2 regular. ABDOMEN: Soft. EXTREMITIES: Clubbing and cyanosis negative. LABORATORY DATA: Blood workup as follows: WBC 8.8, hemoglobin 7.9, hematocrit 25.6, platelet count 281. Chemistry shows sodium 152, potassium 4.8, chloride 101, carbon dioxide 22, anion gap of 17, BUN 45, creatinine 4.3. IMPRESSION: Cardiac arrest, status post respiratory failure, status post intubated, altered mental status, hypernatremia, hemoconcentration, anemia, n.p.o., altered mental status, dysphagia, chokes on swallowing. RECOMMENDATION: We will start low-dose IV fluid. The patient is n.p.o. Consider PEG placement. Overall, the patient's condition is critical. Long-term prognosis guarded. Needs to delineate the plan for feeding. The patient will develop protein-calorie malnutrition. Continue interim IV beta-gita to prevent going back into atrial fibrillation. Now, the patient is in normal sinus. History of paroxysmal atrial fibrillation in the past. Borderline troponin could be secondary to CPR in phase of renal insufficiency versus true [id number] myocardial infarction or secondary hemodynamic instability because maximum troponin was 0.16 in phase of creatinine 2.9 with creatinine clearance 20. I do doubt it is an PR, most likely secondary to hemodynamic instability and renal insufficiency, but cannot rule out underlying coronary artery disease. Continue supportive care. The patient's last echocardiography done on 07/31/2017 that shows ejection fraction of 63%. LA is borderline dilated. [id number] aortic regurgitation. Trace mitral regurgitation. Until the definitive plan is done for NG feeding or PEG placement, we will continue gentle hydration. Continue beta-gita to prevent going back into AFib. The patient goes back and forth in AFib, paroxysmal. Now, the patient is in normal sinus. We will follow with you. Monitor electrolytes and gentle hydration. Repeat the lab in the morning. Jerald Conway MD
--- NOTE | 2017-08-03 19:11 | PN ---
DATE: 08/03/2017 SUBJECTIVE: In short, the patient is an 87 years old with questionable dementia. Patient was admitted on the medical site for unresponsive episode. Patient was found to have troponin elevated and status post cardiac arrest twice and hemorrhagic stroke. Patient was on ICU. Psychiatry team was involved because of agitation and confusion. Patient was seen initially by Dr. Baires. Haloperidol was started as needed, but patient does not need haloperidol, not even one dose was given to the patient. This automotive service writer evaluated the patient; discussed with the patient's family which is next to the patient, three [id number] are next to him. Patient is erratic speaking; moreover, patient is very confused, not able to provide any history. Collaterals were obtained from one of the [id number], her name is Yusuf Moreira. Patient was doing fine up until 3 weeks ago when patient fell and broke his hip. Patient does not have history of mental illness, does not have history of being admitted to the psychiatric inpatient unit, and never been depressed. At present moment, as per family, patient is doing better, but still has confusions. At times, patient is talking to the who is not here, but overall, patient is improving slowly. Patient was seen by palliative care and at present moment, patient is DNR and DNI. Discussed with the patient's attending, Dr. Agosto. VITAL SIGNS: Reviewed. Temperature 98, pulse is 68, blood pressure 122/62, respiration 18. MEDICATIONS: Reviewed. As this automotive service writer described above, haloperidol 0.25 mg p.o. every 4 hours as needed for agitation, but the patient did not get any haloperidol. Patient is on acetaminophen, DuoNeb, aspirin, doxercalciferol, Lovenox, Lopressor, Protonix, valproic, sodium twice a day as well as verapamil. LABORATORY DATA: Reviewed. Hemoglobin and hematocrit 7.9 and 25.6. Platelet count is 281. Chemistry reviewed: Sodium 152, chloride 111, BUN and creatinine 45 and 4.3 respectively. Toxicology is negative. MENTAL STATUS EXAMINATION: As this automotive service writer described above, patient is confused,not able to provide any information, was talking to the who is not there, hallucinating. Patient reported that he feels fine. Patient does not have any signs of discomfort or agitation or aggression. IMPRESSION: Most likely, patient is in delirium stage which is related to the multiple medical issues including cardiopulmonary arrest, extubation, anemia, chronic kidney disease, hemorrhagic stroke, questionable dementia, but as per family, patient never was diagnosed with dementia. PLAN: Continue current management. Continue current medication. Discussed with the patient's family about advanced directives and power of senior trial attorney. Family verbalized understanding. Discussed with Yusuf Moreira, patient's [id number], phone number [phone]. There is no acute psychiatric issues. This automotive service writer will sign off. Discussed with the medical team in detail. Thank you very much for letting me participate in the care of your patient. Michelle Braga MD
[2017-08-04] MEDS: Insulin Lispro (humaLOG) LOW Coverage SC SCH ×4 (00:09→18:00)
[2017-08-04] MEDS: Albuterol-Ipratrop 3 mg / 0.5 (3 ml) UD IH SCH ×4 (01:35→19:37)
[2017-08-04] MEDS: Metoprolol 1 mg/ml Inj IVP SCH ×4 (04:35→23:13)
[2017-08-04 07:00] LABS: BASO # 0.03 K/mm3 (0.0-2.0); BASO % 0.4 % (0.0-3.0); EOS # 0.3 (0.0-0.7); GRAN # 5.45 (1.4-6.5); GRAN % 66.3 % (50.0-68.0); HEMOGLOBIN 8.4 g/dL (14.0-18.0); LYMPH # 1.7 (1.2-3.4); MEAN CELL VOLUME 85.3 fl (80.0-105.0); MEAN CORPUSCULAR HEMOGLOBIN 26.8 pg (25.0-35.0); MEAN CORPUSCULAR HGB CONC 31.5 g/dl (31.0-37.0); MEAN PLATELET VOLUME 10.2 fl (7.0-11.0); MONO # 0.8 (0.1-0.6); MONO % 9.3 % (1.0-6.0); RBC 3.13 10^6/uL (3.5-6.1); RED CELL DISTRIBUTION WIDTH 18.9 % (11.5-14.5); WHITE BLOOD COUNT 8.2 10^3/ul (4.5-11.0)
[2017-08-04 07:19] LABS: ALB/GLOB RATIO 0.9 (1.1-1.8); ALBUMIN 3.2 g/dL (3.0-4.8); CALCIUM 8.9 mg/dL (8.4-10.5)
[2017-08-04] MEDS: Valproate 500 MG in Sodium Chloride 0.9% 100 ML IVPB SCH ×2 (10:48→23:06)
--- NOTE | 2017-08-04 12:56 | CP.PCM.PN ---
Subjective - Date & Time of Evaluation Date of Evaluation: 08/03/17 Time of Evaluation: 10:15 - Subjective Subjective: No fevers, not in distress. Objective - Vital Signs/Intake and Output Vital Signs (last 24 hours): Temp Pulse Resp BP Pulse Ox 98.4 F 72 22 121/68 94 L 08/03/17 06:00 08/03/17 06:00 08/03/17 06:00 08/03/17 06:00 08/03/17 06:00 Intake and Output: 08/03/17 08/03/17 06:59 18:59 Intake Total 0 632 Output Total 1000 Balance -1000 632 - Medications Medications: Current Medications Acetaminophen (Tylenol 325mg Tab) 650 mg PO Q4 PRN PRN Reason: Fever >100.4 F Albuterol/Ipratropium (Duoneb 3 Mg/0.5 Mg (3 Ml) Ud) 3 ml IH [id number] [facility] Last Admin: 08/03/17 07:44 Dose: 3 ml Aspirin (Ecotrin) 81 mg PO DAILY [facility] Last Admin: 08/01/17 13:15 Dose: Not Given Doxercalciferol (Hectorol) 0.5 mcg NG DAILY [facility] Last Admin: 08/02/17 10:15 Dose: Not Given Enoxaparin Sodium (Lovenox) 30 mg SC DAILY [facility] PRN Reason: Protocol Last Admin: 08/01/17 09:59 Dose: 30 mg Haloperidol (Haldol) 0.25 mg PO Q4 PRN; Protocol PRN Reason: Agitation Dextrose/Sodium Chloride (Dextrose 5%/0.9% Ns 1000 Ml) 1,000 mls @ 60 mls/hr IV .[id number] [facility] Last Admin: 08/03/17 05:46 Dose: Not Given Valproate Sodium 500 mg/ (Sodium Chloride) 105 mls @ 100 mls/hr IVPB Q12 [facility] Last Admin: 08/02/17 22:07 Dose: 100 mls/hr Vancomycin HCl (Vancomycin 1gm) 1 gm in 250 mls @ 167 mls/hr IVPB DAILY [facility] PRN Reason: Protocol Last Admin: 08/03/17 01:35 Dose: 167 mls/hr Insulin Human Lispro (Humalog Low) 0 units SC 0000,0600,1200,1800 [facility] PRN Reason: Protocol Last Admin: 08/03/17 08:01 Dose: Not Given Metoprolol Tartrate (Lopressor) 5 mg IVP Q6H [facility] Last Admin: 08/03/17 04:16 Dose: 5 mg Pantoprazole Sodium (Protonix Inj) 40 mg IVP DAILY [facility] Last Admin: 08/02/17 09:59 Dose: 40 mg Verapamil HCl (Verapamil Inj) 2.5 mg IVP Q6H PRN PRN Reason: for heart rate >130 - Labs Labs: 08/03/17 05:45 08/03/17 05:45 PT 12.4 SECONDS (9.4-12.5) 07/30/17 23:30 INR 1.09 (0.93-1.08) H 07/30/17 23:30 APTT 37.2 Seconds (25.1-36.5) H 07/30/17 23:30 - Constitutional Appears: Chronically Ill - Head Exam Head Exam: NORMAL INSPECTION - Neck Exam Neck Exam: absent: Meningismus - Respiratory Exam Respiratory Exam: Decreased Breath Sounds - Cardiovascular Exam Cardiovascular Exam: +S1, +S2 - GI/Abdominal Exam GI & Abdominal Exam: Soft. absent: Tenderness Assessment and Plan - Assessment and Plan (Free Text) Plan: Assessment S/P systemic inflammatory response syndrome with ventilator-dependent respiratory failure after cardiorespiratory arrest, consider due to possible subarachnoid hemorrhage / CVA R/O acute myocardial infarction, unlikely aspiration pneumonia chronic renal failure HTN dementia significant smoking history S/P ORIF Plan will continue to monitor the patient off antibiotics since he is at risk for hospital-acquired infections follow up further Cardiology and Neurology recommendations
--- NOTE | 2017-08-04 14:12 | CP.PCM.PN ---
<Nixon Perkins - Last Filed: 08/04/17 15:12> Subjective - Date & Time of Evaluation Date of Evaluation: 08/04/17 Time of Evaluation: 07:00 - Subjective Subjective: IM Progress Note for Hospitalist Service Patient seen and examined at bedside on the floors. Overnight, no acute events , but remains confused/poorly verbal. Less wet sounding breath sounds on exam today, but secretions still heard when auscultating neck. Yesterday, after discussion between family members and Palliative service, it was determined that pt would wish to be DNR/DNI, and that he would not want either dialysis or a PEG tube. POLST form was filled out and placed in chart, and charting was amended to reflect these wishes. 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 Family discussion among all members pending, they will get back to med team after their discuss and final decision has been made. Objective - Vital Signs/Intake and Output Vital Signs (last 24 hours): Temp Pulse Resp BP Pulse Ox 98 F 66 18 115/58 L 98 08/04/17 12:00 08/04/17 12:00 08/04/17 12:00 08/04/17 12:00 08/04/17 05:50 Intake and Output: 08/04/17 08/04/17 06:59 18:59 Intake Total 500 Output Total 400 Balance 100 - Medications Medications: Current Medications Acetaminophen (Tylenol 325mg Tab) 650 mg PO Q4 PRN PRN Reason: Fever >100.4 F Albuterol/Ipratropium (Duoneb 3 Mg/0.5 Mg (3 Ml) Ud) 3 ml IH [id number] [facility] Last Admin: 08/04/17 14:01 Dose: 3 ml Doxercalciferol (Hectorol) 0.5 mcg NG DAILY [facility] Last Admin: 08/03/17 10:13 Dose: Not Given Haloperidol (Haldol) 0.25 mg PO Q4 PRN; Protocol PRN Reason: Agitation Valproate Sodium 500 mg/ (Sodium Chloride) 105 mls @ 100 mls/hr IVPB Q12 [facility] Last Admin: 08/04/17 10:48 Dose: 100 mls/hr Dextrose (Dextrose 5% In Water 1000 Ml) 1,000 mls @ 60 mls/hr IV .[id number] [facility] Last Admin: 08/04/17 06:03 Dose: 60 mls/hr Insulin Human Lispro (Humalog Low) 0 units SC 0000,0600,1200,1800 [facility] PRN Reason: Protocol Last Admin: 08/04/17 06:09 Dose: Not Given Metoprolol Tartrate (Lopressor) 5 mg IVP Q6H [facility] Last Admin: 08/04/17 10:49 Dose: 5 mg Pantoprazole Sodium (Protonix Inj) 40 mg IVP DAILY [facility] Last Admin: 08/04/17 10:49 Dose: 40 mg Verapamil HCl (Verapamil Inj) 2.5 mg IVP Q6H PRN PRN Reason: for heart rate >130 - Labs Labs: 08/04/17 05:30 08/04/17 05:30 PT 12.4 SECONDS (9.4-12.5) 07/30/17 23:30 INR 1.09 (0.93-1.08) H 07/30/17 23:30 APTT 37.2 Seconds (25.1-36.5) H 07/30/17 23:30 - Additional Findings Additional findings: - Constitutional Appears: Non-toxic, Confused, Chronically Ill - Head Exam Head Exam: ATRAUMATIC, NORMAL INSPECTION, NORMOCEPHALIC - Eye Exam Eye Exam: Normal appearance. absent: Conjunctival injection, Scleral icterus Pupil Exam: absent: Irregular, Unequal - ENT Exam ENT Exam: Mucous Membranes Moist - Neck Exam Neck Exam: improved crackles on auscultation, bandaging covering site of prior R IJ TLC - Respiratory Exam Respiratory Exam: Rhonchi (improved bibasilar ronchi, some ronchourous sounds in neck appreciated; both most prominent on exhalation), NORMAL BREATHING PATTERN. absent: Accessory Muscle Use, Decreased Breath Sounds, Rales, Wheezes - Cardiovascular Exam Cardiovascular Exam: Irregular Rhythm, +S1, +S2. absent: Bradycardia, Tachycardia, REGULAR RHYTHM, JVD, RRR, +S4 - GI/Abdominal Exam GI & Abdominal Exam: Soft, Normal Bowel Sounds. absent: Distended, Firm, Guarding, Rigid, Tenderness (patient unable to articulate pain, but no reaction suggestive on pain on palpation), Diminished Bowel Sounds, Hypoactive Bowel Sounds - Extremities Exam Extremities Exam: Normal Capillary Refill, Pedal Edema (right foot and ankle > left, trace in left, +1 in right foot and ankle, none bilaterally above SCDs) - Neurological Exam awake but does not appear fully alert, stares into distance, occasionally tracking different family members within room, bilateral wrist restraints, few spontaneous movements of extremities noted during exam - Psychiatric Exam unable to assess, non-verbal during exam - Skin Skin Exam: Dry, Intact, Normal Color, Warm Assessment and Plan - Assessment and Plan (Free Text) Assessment: This is an 87 yo male with PMH of HTN, CKD Stg IV, ORIF 3 weeks ago, and dementia brought in by EMS after an episode of unresponsiveness and possible cardiac arrest at home, s/p cardiac arrest in the ED, ROSC achieved after 1 dose of epi. Was intubated after ED code, now day 5 s/p extubation, weaned off levophed, remains on telemetry. Palliative service has been consulted, pt now DNR/DNI with filled POLST in chart, pending family decision for long-term care vs home-hospice. 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 technician, would start baby aspirin, low-dose beta-gita, lovenox 30u SC daily; ASA and Lovenox cancelled due to Neuro recs to avoid in setting of possible intracranial bleed -weaned off Levophed, maintaining MAP > 65 -Extubated, protecting airway -as per ID, procal negative and cx negative thus far, can d/c abx and monitor, less likely aspiration PNA -Hgb 8.4 (was 7.9), continue to monitor, transfuse if Hgb < 7 or dropping with signs of acute hemorrage (hemodynamic instability, end-organ dmg) -Speech-swallow cleared pt for pureed diet with honey-thick liquids, pt tolerating feeds from family 2) Hemorrhagic stroke -CTH shows 1.7 x 2.5 x 1.7 hemorrhage at level of 3rd vent (patient had a hx of hemorrhagic stroke 3 years ago as per family) -Neuro following, appreciate all recs: recs repeat head CT since MRI unreliable due to all motion artifacting -repeat Head CT read as unchanged, but said less likely bleed over obstructing colloid cyst; as per neuro can start heparin 5000sc q12 for DVT ppx -family reports hx of hemorrhagic stroke 3 yrs prior, but as per neuro, would have been resorbed by now, findings on scans represent new event -depakote 500mg BID IV for mood stabilization and seizure ppx as per Neuro 3) TESSY on CKD -Cr worsened to 4.6 today (was 4.3) -as per Nephro, baseline is CKD Stage IV; due to poor prognosis and overall state pt is not a candidate for dialysis, recs involving Palliative Care -On D5W 60cc/hr, but Na increased from 152 to 154, continue to monitor -strict I's and O's, daily weights; only put out approx 400cc urine in last 24 hr period 4) Delirium overlying dementia -strict day/night cycle as feasible -psych consulted, recs cautious use of antipsychotics given ADR profile in the elderly -at high risk for delirium due to hx dementia, severity of illness, elderly population 5) Hx COPD -continue duonebs -V/q negative for PE -maintain SaO2 > 90%, avoid over-oxygenation in COPD pt to prevent suppression of respiratory drive -excess oral secretions on neck auscultation, oral care and suctioning as able, given patient's combativeness with such efforts Dispo: Tele, pending family decision on long-term care vs home hospice FEN: Renal non-dialysis pureed diet with honey-thick liquids, D5W 60cc/hr Access: Peripheral IV Consults: Nephro, ID, Psych, ICU, Cardio, Neuro, Palliative Ppx: Protonix for GI, heparin sc for DVT Patient seen, reviewed, and discussed with attending, Dr. Agosto <Antonio Agosto - Last Filed: 08/05/17 16:37> Objective - Vital Signs/Intake and Output Vital Signs (last 24 hours): Temp Pulse Resp BP Pulse Ox 96.3 F L 68 20 121/57 L 94 L 08/05/17 15:00 08/05/17 15:00 08/05/17 15:00 08/05/17 15:00 08/05/17 15:00 Intake and Output: 08/05/17 08/05/17 06:59 18:59 Intake Total 1060 Output Total 500 Balance 560 - Medications Medications: Current Medications Acetaminophen (Tylenol 325mg Tab) 650 mg PO Q4 PRN PRN Reason: Fever >100.4 F Albuterol/Ipratropium (Duoneb 3 Mg/0.5 Mg (3 Ml) Ud) 3 ml IH [id number] [facility] Last Admin: 08/05/17 13:22 Dose: 3 ml Doxercalciferol (Hectorol) 0.5 mcg NG DAILY [facility] Last Admin: 08/05/17 10:29 Dose: Not Given Haloperidol (Haldol) 0.25 mg PO Q4 PRN; Protocol PRN Reason: Agitation Valproate Sodium 500 mg/ (Sodium Chloride) 105 mls @ 100 mls/hr IVPB Q12 [facility] Last Admin: 08/05/17 10:16 Dose: 100 mls/hr Dextrose (Dextrose 5% In Water 1000 Ml) 1,000 mls @ 60 mls/hr IV .[id number] [facility] Last Admin: 08/04/17 23:11 Dose: 60 mls/hr Insulin Human Lispro (Humalog Low) 0 units SC 0000,0600,1200,1800 [facility] PRN Reason: Protocol Last Admin: 08/05/17 12:23 Dose: Not Given Metoprolol Tartrate (Lopressor) 5 mg IVP Q6H [facility] Last Admin: 08/05/17 10:18 Dose: Not Given Pantoprazole Sodium (Protonix Inj) 40 mg IVP DAILY [facility] Last Admin: 08/05/17 10:18 Dose: 40 mg Verapamil HCl (Verapamil Inj) 2.5 mg IVP Q6H PRN PRN Reason: for heart rate >130 - Labs Labs: 08/05/17 06:15 08/05/17 06:15 PT 12.4 SECONDS (9.4-12.5) 07/30/17 23:30 INR 1.09 (0.93-1.08) H 07/30/17 23:30 APTT 37.2 Seconds (25.1-36.5) H 07/30/17 23:30 Attending/Attestation - Attestation I have personally seen and examined this patient.: Yes I have fully participated in the care of the patient.: Yes I have reviewed all pertinent clinical information, including history, physical exam and plan: Yes Notes (Text): 08/05/17 16:14 attending note; Patient seen and examined with resident. patient is awake. Not communicating much. Confused and agitated at times. Patient is a 87-year-old Taj[place] male admitted post cardiac arrest brief CPR. Patient has history of chronic kidney disease, right ORIF, questionable dementia versus psychiatric disorder. Elevated troponin; status post CPR. 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 On metoprolol and verapamil IV when necessary. questionable intracranial hemorrhage; neurology evaluation appreciated.head CT showed colloid cysts versus hemorrhage. No new changes. we will hold aspirin. Chronic kidney disease; case discussed with crew team member in detail. As per crew team member his [place] [facility] [place]. monitor urine output. Nephrology evaluation appreciated. No need for renal replacement therapy now. hypernatremia; resolving with D5W. Case discussed with speech And swallow specialist; patient can started on pure diet with supervision when families around/ for language issues. Family informed. palliative care evaluation appreciated. Patient is DNI DNR. Family is considering hospice care. Agitation; possible history of schizophrenia versus dementia. psychiatric evaluation appreciated. on Haldol when necessary. prognosis is poor. 08/05/17 16:36
--- NOTE | 2017-08-04 16:13 | PN ---
DATE: 08/04/2017 REASON FOR THE CONSULTATION AND FOLLOWUP: Status post cardiac arrest, status post CPR, intubated, now successfully extubated, altered mental status, n.p.o. SUBJECTIVE: The patient is lying flat on the bed, confused, on 2-point soft [place] restraint. OBJECTIVE: GENERAL: Not in any apparent distress, but very restless. VITAL SIGNS: Temperature afebrile, heart rate 76, blood pressure 126/71. HEENT: PERRLA, intact. NECK: Supple. No carotid bruit. No thyromegaly. CHEST: Clear to auscultation. HEART: S1 and S2 regular. ABDOMEN: Soft. EXTREMITIES: Clubbing and cyanosis negative. LABORATORY DATA: Blood workup as follows: WBC 8.2, hemoglobin 8.5, hematocrit 26.7, platelet count 235. Chemistry shows sodium 154, potassium 4.5, chloride 116, carbon dioxide 23, anion gap of 20, BUN , creatinine 4.6. IMPRESSION: Acute kidney injury, stage IV to V acute kidney disease, hypernatremia, altered mental status, chronic renal insufficiency, status post right hip surgery recently, status post respiratory failure, intubated; history of chronic kidney disease in phase of acute kidney injury and chronic renal insufficiency,anemia,history of recent hip replacement, anemia status post packed RBC transfusion, n.p.o., high risk of aspiration, failed swallowing evaluation and choking on p.o. pills. RECOMMENDATIONS: Keep n.p.o. Continue gentle hydration, p.r.n. Lasix. Continue IV beta-gita to prevent going into AFib, history of paroxysmal atrial fibrillation and now the patient is in normal sinus. Continue IV Lopressor as the patient is n.p.o. for medication as well. Continue supportive care. Overall, the patient's condition is critical. jail prognosis is extremely poor. Any survival is expected, consider PEG placement and/or NG tube feeding. We will discuss with family when they are available. In the interim, continue gentle hydration. Jerald Conway MD
--- NOTE | 2017-08-04 17:56 | PN ---
DATE: 08/04/2017 SUBJECTIVE: The patient is currently seen on 2R. Family is in the room, who did not speak any Uzbek. I did communicate with a grandson who speaks Uzbek. The patient's eyes are open. He appears to be looking up at the ceiling. He is not following any purposeful commands. He seems to be thrashing about in bed. The patient was seen by palliative care and there is a consideration for initiation of hospice once family agrees. MEDICATIONS: Medication list reviewed. The patient is on D5W 60 mL/hour, DuoNeb, Haldol, Hectorol, insulin, Lopressor, Protonix, Tylenol, valproate sodium, and verapamil p.r.n. OBJECTIVE: INTAKE/OUTPUT: Intake 1132, output 400. VITAL SIGNS: Blood pressure 115/58, temperature 98, respiratory rate 80 with a pulse of 66, pulse ox 98%. HEENT: Normocephalic, atraumatic. Conjunctivae are pale. NECK: Appears to be supple with no neck vein distention. CHEST: Scattered rhonchi. No rales. No wheezing today. CARDIAC: S1 and S2 are regular. AI/MR/TR. No S3, no S4, no rub. ABDOMEN: Soft. Bowel sounds normal. Nondistended. No rebound or guarding. EXTREMITIES: Show no lower extremity edema. LABORATORY DATA AND IMAGING: CBC: White blood cell count 8.2, hemoglobin stable at 8.4, platelet count is 235,000. Chemistries show sodium of 154, potassium 4.7, chloride 116. BUN is up to 51, creatinine is up to 4.6. Estimated GFR is 12 mL/min. Calcium 8.9, phosphorus elevated at 5.8. Magnesium level was 2. Liver enzymes are normal with the exception of an elevated alkaline phosphatase at 247. Albumin level was 3.2. Microbiology: All cultures are negative at 4 days. ASSESSMENT: 1. Altered mental status, status post cardiac arrest. 2. History of chronic kidney disease stage 4 with increasing BUN and creatinine levels. The patient is felt not to be a dialysis candidate. 3. History of anemia in part secondary to chronic kidney disease. 4. History of hypernatremia secondary to likely volume depletion. The patient continues on hypotonic fluids. 5. History of valvular heart disease with an ejection fraction of 63%. 6. Secondary hyperparathyroidism with elevated phosphorus levels. PLAN: 1. Discussed with the patient's grandson who speaks Uzbek. Explained to him that there is no role here for renal replacement therapy. 2. Family is considering hospice. 3. Aranesp on a weekly basis can be given to the patient along with iron supplements. 4. The patient may be transfused if his hemoglobin drops lower. 5. Continue hypotonic fluids in light of his hypernatremia. 6. Await final decision of family regarding hospice placement. Marvel Coleman MD
[2017-08-05] MEDS: Insulin Lispro (humaLOG) LOW Coverage SC SCH ×4 (00:14→18:40)
[2017-08-05] MEDS: Albuterol-Ipratrop 3 mg / 0.5 (3 ml) UD IH SCH ×5 (01:10→20:23)
[2017-08-05] MEDS: Metoprolol 1 mg/ml Inj IVP SCH ×4 (04:32→21:19)
[2017-08-05 06:44] LABS: HEMOGLOBIN 8.2 g/dL (14.0-18.0); MEAN CELL VOLUME 84.9 fl (80.0-105.0); MEAN CORPUSCULAR HEMOGLOBIN 26.4 pg (25.0-35.0); MEAN CORPUSCULAR HGB CONC 31.1 g/dl (31.0-37.0); MEAN PLATELET VOLUME 10.3 fl (7.0-11.0); RBC 3.11 10^6/uL (3.5-6.1); RED CELL DISTRIBUTION WIDTH 18.7 % (11.5-14.5); WHITE BLOOD COUNT 9.5 10^3/ul (4.5-11.0)
[2017-08-05 06:55] LABS: ALBUMIN 3.1 g/dL (3.0-4.8); CALCIUM 8.3 mg/dL (8.4-10.5)
--- NOTE | 2017-08-05 07:25 | CP.PCM.PN ---
Subjective - Date & Time of Evaluation Date of Evaluation: 08/05/17 Time of Evaluation: 06:35 - Subjective Subjective: Awake, confused,no distress Reason for consultation and follow up: status post cardiac arrest, post CPR, post extubation, altered mental status Seen and examined by me and Dr. Conway Objective - Vital Signs/Intake and Output Vital Signs (last 24 hours): Temp Pulse Resp BP Pulse Ox 97.8 F 74 22 145/73 97 08/05/17 05:45 08/05/17 05:47 08/05/17 05:45 08/05/17 05:45 08/05/17 05:45 Intake and Output: 08/05/17 08/05/17 06:59 18:59 Intake Total 1060 Output Total 500 Balance 560 - Medications Medications: Current Medications Acetaminophen (Tylenol 325mg Tab) 650 mg PO Q4 PRN PRN Reason: Fever >100.4 F Albuterol/Ipratropium (Duoneb 3 Mg/0.5 Mg (3 Ml) Ud) 3 ml IH [id number] [facility] Last Admin: 08/05/17 04:32 Dose: 3 ml Doxercalciferol (Hectorol) 0.5 mcg NG DAILY [facility] Last Admin: 08/04/17 10:00 Dose: Not Given Haloperidol (Haldol) 0.25 mg PO Q4 PRN; Protocol PRN Reason: Agitation Valproate Sodium 500 mg/ (Sodium Chloride) 105 mls @ 100 mls/hr IVPB Q12 [facility] Last Admin: 08/04/17 23:06 Dose: 100 mls/hr Dextrose (Dextrose 5% In Water 1000 Ml) 1,000 mls @ 60 mls/hr IV .[id number] [facility] Last Admin: 08/04/17 23:11 Dose: 60 mls/hr Insulin Human Lispro (Humalog Low) 0 units SC 0000,0600,1200,1800 [facility] PRN Reason: Protocol Last Admin: 08/05/17 06:28 Dose: Not Given Metoprolol Tartrate (Lopressor) 5 mg IVP Q6H [facility] Last Admin: 08/05/17 04:32 Dose: Not Given Pantoprazole Sodium (Protonix Inj) 40 mg IVP DAILY [facility] Last Admin: 08/04/17 10:49 Dose: 40 mg Verapamil HCl (Verapamil Inj) 2.5 mg IVP Q6H PRN PRN Reason: for heart rate >130 - Labs Labs: 08/05/17 06:15 08/05/17 06:15 PT 12.4 SECONDS (9.4-12.5) 07/30/17 23:30 INR 1.09 (0.93-1.08) H 07/30/17 23:30 APTT 37.2 Seconds (25.1-36.5) H 07/30/17 23:30 - Constitutional Appears: No Acute Distress - ENT Exam ENT Exam: Mucous Membranes Dry - Respiratory Exam Respiratory Exam: Decreased Breath Sounds, Wheezes Additional comments: crackles - Cardiovascular Exam Cardiovascular Exam: REGULAR RHYTHM, +S1, +S2 Additional comments: no JVD - GI/Abdominal Exam GI & Abdominal Exam: Soft, Hypoactive Bowel Sounds - Extremities Exam Extremities Exam: Normal Capillary Refill - Neurological Exam Neurological Exam: Awake Additional comments: confuse - Skin Skin Exam: Intact, Normal Color, Warm Assessment and Plan - Assessment and Plan (Free Text) Assessment: A 87 year old male brought to the ER by EMS due to unresponsiveness, status post cardiac arrest, post CPR, intubated and transferred to ICU. history of hypertension, dementia, kidney disease. CT of the brain showed hemorrhage. Extubated and now in telemetry. Plan: Heart rate maintained to be on normal sinus rhythm at 70's Continue Lopressor and Verapamil to prevent going into Afib Prognosis is poor DNR/DNI as per family No agressive cardiac work up at this point Continue current treatment Continue current medications Will follow up Plan and treatment discussed with Dr. Conway
[2017-08-05] MEDS: Valproate 500 MG in Sodium Chloride 0.9% 100 ML IVPB SCH ×2 (10:16→22:23)
--- NOTE | 2017-08-05 13:47 | CP.PCM.PN ---
<Nixon Perkins - Last Filed: 08/05/17 13:40> Subjective - Date & Time of Evaluation Date of Evaluation: 08/05/17 Time of Evaluation: 07:00 - Subjective Subjective: IM Progress Note for Hospitalist Service Patient seen and examined at bedside on the floors. Overnight, no acute events , but remains confused/poorly verbal. Less wet sounding breath sounds on exam today, but secretions still heard when auscultating neck. Yesterday, iscussion held with family regarding goals of care, long-term care vs hospice. Family to further discuss among themselves and will let medicine team know when they have reached a decision. Objective - Vital Signs/Intake and Output Vital Signs (last 24 hours): Temp Pulse Resp BP Pulse Ox 97 F L 64 20 128/56 L 97 08/05/17 12:00 08/05/17 12:00 08/05/17 12:00 08/05/17 12:00 08/05/17 05:45 Intake and Output: 08/05/17 08/05/17 06:59 18:59 Intake Total 1060 Output Total 500 Balance 560 - Medications Medications: Current Medications Acetaminophen (Tylenol 325mg Tab) 650 mg PO Q4 PRN PRN Reason: Fever >100.4 F Albuterol/Ipratropium (Duoneb 3 Mg/0.5 Mg (3 Ml) Ud) 3 ml IH [id number] [facility] Last Admin: 08/05/17 13:22 Dose: 3 ml Doxercalciferol (Hectorol) 0.5 mcg NG DAILY [facility] Last Admin: 08/05/17 10:29 Dose: Not Given Haloperidol (Haldol) 0.25 mg PO Q4 PRN; Protocol PRN Reason: Agitation Valproate Sodium 500 mg/ (Sodium Chloride) 105 mls @ 100 mls/hr IVPB Q12 [facility] Last Admin: 08/05/17 10:16 Dose: 100 mls/hr Dextrose (Dextrose 5% In Water 1000 Ml) 1,000 mls @ 60 mls/hr IV .[id number] [facility] Last Admin: 08/04/17 23:11 Dose: 60 mls/hr Insulin Human Lispro (Humalog Low) 0 units SC 0000,0600,1200,1800 JAIMIE PRN Reason: Protocol Last Admin: 08/05/17 12:23 Dose: Not Given Metoprolol Tartrate (Lopressor) 5 mg IVP Q6H [facility] Last Admin: 08/05/17 10:18 Dose: Not Given Pantoprazole Sodium (Protonix Inj) 40 mg IVP DAILY [facility] Last Admin: 08/05/17 10:18 Dose: 40 mg Verapamil HCl (Verapamil Inj) 2.5 mg IVP Q6H PRN PRN Reason: for heart rate >130 - Labs Labs: 08/05/17 06:15 08/05/17 06:15 PT 12.4 SECONDS (9.4-12.5) 07/30/17 23:30 INR 1.09 (0.93-1.08) H 07/30/17 23:30 APTT 37.2 Seconds (25.1-36.5) H 07/30/17 23:30 - Additional Findings Additional findings: - Constitutional Appears: Non-toxic, Confused, Chronically Ill - Head Exam Head Exam: ATRAUMATIC, NORMAL INSPECTION, NORMOCEPHALIC - Eye Exam Eye Exam: Normal appearance. absent: Conjunctival injection, Scleral icterus Pupil Exam: absent: Irregular, Unequal - ENT Exam ENT Exam: Mucous Membranes Moist - Neck Exam Neck Exam: improved crackles on auscultation, bandaging covering site of prior R IJ TLC - Respiratory Exam Respiratory Exam: Rhonchi (improved bibasilar ronchi, some ronchourous sounds in neck appreciated; both most prominent on exhalation), NORMAL BREATHING PATTERN. absent: Accessory Muscle Use, Decreased Breath Sounds, Rales, Wheezes - Cardiovascular Exam Cardiovascular Exam: Irregular Rhythm, +S1, +S2. absent: Bradycardia, Tachycardia, REGULAR RHYTHM, JVD, RRR, +S4 - GI/Abdominal Exam GI & Abdominal Exam: Soft, Normal Bowel Sounds. absent: Distended, Firm, Guarding, Rigid, Tenderness (patient unable to articulate pain, but no reaction suggestive on pain on palpation), Diminished Bowel Sounds, Hypoactive Bowel Sounds - Extremities Exam Extremities Exam: Normal Capillary Refill, Pedal Edema (right foot and ankle > left, trace in left, +1 in right foot and ankle, none bilaterally above SCDs) - Neurological Exam awake but does not appear fully alert, stares into distance, occasionally tracking different family members within room, bilateral wrist restraints, few spontaneous movements of extremities noted during exam - Psychiatric Exam unable to assess, non-verbal during exam - Skin Skin Exam: Dry, Intact, Normal Color, Warm Assessment and Plan - Assessment and Plan (Free Text) Assessment: This is an 87 yo male with PMH of HTN, CKD Stg IV, ORIF 3 weeks ago, and dementia brought in by EMS after an episode of unresponsiveness and possible cardiac arrest at home, s/p cardiac arrest in the ED, ROSC achieved after 1 dose of epi. Was intubated after ED code, now day 5 s/p extubation, weaned off levophed, remains on telemetry. Palliative service has been consulted, pt now DNR/DNI with filled POLST in chart, pending family decision for long-term care vs home-hospice. 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 for record label intern, would start baby aspirin, low-dose beta-gita, lovenox 30u SC daily; ASA and Lovenox cancelled due to Neuro recs to avoid in setting of possible intracranial bleed -weaned off Levophed, maintaining MAP > 65 -Extubated, protecting airway -as per ID, procal negative and cx negative thus far, can d/c abx and monitor, less likely aspiration PNA -Hgb 8.2 (was 8.4), continue to monitor, transfuse if Hgb < 7 or dropping with signs of acute hemorrage (hemodynamic instability, end-organ dmg) -Speech-swallow cleared pt for pureed diet with honey-thick liquids, pt tolerating feeds from family -D/c tele as per Cardio 2) Hemorrhagic stroke -CTH shows 1.7 x 2.5 x 1.7 hemorrhage at level of 3rd vent (patient had a hx of hemorrhagic stroke 3 years ago as per family) -Neuro following, appreciate all recs: recs repeat head CT since MRI unreliable due to all motion artifacting -repeat Head CT read as unchanged, but said less likely bleed over obstructing colloid cyst; as per neuro can start heparin 5000sc q12 for DVT ppx -family reports hx of hemorrhagic stroke 3 yrs prior, but as per neuro, would have been resorbed by now, findings on scans represent new event -depakote 500mg BID IV for mood stabilization and seizure ppx as per Neuro 3) TESSY on CKD -Cr remains 4.6 today -as per Nephro, baseline is CKD Stage IV; due to poor prognosis and overall state pt is not a candidate for dialysis, recs involving Palliative Care -On D5W 60cc/hr; Na improved to 147 today, continue to monitor, can switch to D5NS or D5 + 1/2 NS if sodium drops singificantly more -strict I's and O's, daily weights; put out approx 1L urine in last 24 hr period 4) Delirium overlying dementia -strict day/night cycle as feasible -psych consulted, recs cautious use of antipsychotics given ADR profile in the elderly -at high risk for delirium due to hx dementia, severity of illness, elderly population 5) Hx COPD -continue duonebs -V/q negative for PE -maintain SaO2 > 90%, trial off supplemental O2 and assess sats -excess oral secretions on neck auscultation, oral care and suctioning as able, given patient's combativeness with such efforts Dispo: Tele pending Med/Surg, pending family decision on long-term care vs home hospice FEN: Renal non-dialysis pureed diet with honey-thick liquids, D5W 60cc/hr Access: Peripheral IV Consults: Nephro, ID, Psych, ICU, Cardio, Neuro, Palliative Ppx: Protonix for GI, heparin sc for DVT Patient seen, reviewed, and discussed with attending, Dr. Agosto <Antonio Agosto - Last Filed: 08/05/17 16:39> Objective - Vital Signs/Intake and Output Vital Signs (last 24 hours): Temp Pulse Resp BP Pulse Ox 96.3 F L 68 20 121/57 L 94 L 08/05/17 15:00 08/05/17 15:00 08/05/17 15:00 08/05/17 15:00 08/05/17 15:00 Intake and Output: 08/05/17 08/05/17 06:59 18:59 Intake Total 1060 Output Total 500 Balance 560 - Medications Medications: Current Medications Acetaminophen (Tylenol 325mg Tab) 650 mg PO Q4 PRN PRN Reason: Fever >100.4 F Albuterol/Ipratropium (Duoneb 3 Mg/0.5 Mg (3 Ml) Ud) 3 ml IH [id number] [facility] Last Admin: 08/05/17 13:22 Dose: 3 ml Doxercalciferol (Hectorol) 0.5 mcg NG DAILY [facility] Last Admin: 08/05/17 10:29 Dose: Not Given Haloperidol (Haldol) 0.25 mg PO Q4 PRN; Protocol PRN Reason: Agitation Heparin Sodium (Porcine) (Heparin) 5,000 units SC Q12 [facility] PRN Reason: Protocol Valproate Sodium 500 mg/ (Sodium Chloride) 105 mls @ 100 mls/hr IVPB Q12 [facility] Last Admin: 08/05/17 10:16 Dose: 100 mls/hr Dextrose (Dextrose 5% In Water 1000 Ml) 1,000 mls @ 60 mls/hr IV .[id number] [facility] Last Admin: 08/04/17 23:11 Dose: 60 mls/hr Insulin Human Lispro (Humalog Low) 0 units SC 0000,0600,1200,1800 AJIMIE PRN Reason: Protocol Last Admin: 08/05/17 12:23 Dose: Not Given Metoprolol Tartrate (Lopressor) 5 mg IVP Q6H [facility] Last Admin: 08/05/17 10:18 Dose: Not Given Pantoprazole Sodium (Protonix Inj) 40 mg IVP DAILY [facility] Last Admin: 08/05/17 10:18 Dose: 40 mg Verapamil HCl (Verapamil Inj) 2.5 mg IVP Q6H PRN PRN Reason: for heart rate >130 - Labs Labs: 08/05/17 06:15 08/05/17 06:15 PT 12.4 SECONDS (9.4-12.5) 07/30/17 23:30 INR 1.09 (0.93-1.08) H 07/30/17 23:30 APTT 37.2 Seconds (25.1-36.5) H 07/30/17 23:30 Attending/Attestation - Attestation I have personally seen and examined this patient.: Yes I have fully participated in the care of the patient.: Yes I have reviewed all pertinent clinical information, including history, physical exam and plan: Yes Notes (Text): 08/05/17 16:38 attending note; Patient seen and examined with resident. patient is awake. Not communicating much. Confused and agitated at times. Patient is a 87-year-old [place] male admitted post cardiac arrest brief CPR. Patient has history of chronic kidney disease, right ORIF, questionable dementia versus psychiatric disorder. Elevated troponin; status post CPR. On metoprolol and verapamil IV when necessary. patient had a pause last night. Currently heart rate is normal. Cardiology evaluation appreciated. Since patient is DNI DNR and considering hospice care telemetry discontinued. questionable intracranial hemorrhage; neurology evaluation appreciated.head CT showed colloid cysts versus hemorrhage. No new changes. Started on subcutaneous heparin. Chronic kidney disease; case discussed with cloth printing back tender in detail. As per cloth printing back tender his baseline creatinine was 4-5 at [facility] [place] few weeks ago. monitor urine output. Nephrology evaluation appreciated. No need for renal replacement therapy now. hypernatremia; resolved. Tolerating diet with carpenter's assistant/family member. palliative care evaluation appreciated. Patient is DNI DNR. Family is considering hospice care. Agitation; possible history of schizophrenia versus dementia. psychiatric evaluation appreciated. on Haldol when necessary. prognosis is poor.
--- NOTE | 2017-08-05 15:26 | PN ---
DATE: 08/05/2017 Addendum to the initial progress note dictated by our nurse practitioner, Sania Robbins. REASON FOR ADDENDUM: Patient's family wanted DNR/DNI and hospice care. patient has a 5-second pause, patient's overall mentation is very poor. Altered mental status is very weak and lethargic, though patient is hemodynamically stable, but has a 5-second pause. In view of the patient deemed to be in hospice care, we will not go aggressively and we will discontinue Telemetry. I discussed with Dr. Agosto taking care of the patient. So, we will discontinue Telemetry and continue hospice care. Jerald Conway MD
--- NOTE | 2017-08-05 17:08 | CP.PCM.PN ---
Subjective - Date & Time of Evaluation Date of Evaluation: 08/05/17 Time of Evaluation: 10:50 - Subjective Subjective: No fevers, not in distress, still with occasional agitation. Objective - Vital Signs/Intake and Output Vital Signs (last 24 hours): Temp Pulse Resp BP Pulse Ox 97.8 F 74 22 145/73 97 08/05/17 05:45 08/05/17 05:47 08/05/17 05:45 08/05/17 05:45 08/05/17 05:45 Intake and Output: 08/05/17 08/05/17 06:59 18:59 Intake Total 1060 Output Total 500 Balance 560 - Medications Medications: Current Medications Acetaminophen (Tylenol 325mg Tab) 650 mg PO Q4 PRN PRN Reason: Fever >100.4 F Albuterol/Ipratropium (Duoneb 3 Mg/0.5 Mg (3 Ml) Ud) 3 ml IH [id number] [facility] Last Admin: 08/05/17 07:27 Dose: 3 ml Doxercalciferol (Hectorol) 0.5 mcg NG DAILY [facility] Last Admin: 08/04/17 10:00 Dose: Not Given Haloperidol (Haldol) 0.25 mg PO Q4 PRN; Protocol PRN Reason: Agitation Valproate Sodium 500 mg/ (Sodium Chloride) 105 mls @ 100 mls/hr IVPB Q12 [facility] Last Admin: 08/04/17 23:06 Dose: 100 mls/hr Dextrose (Dextrose 5% In Water 1000 Ml) 1,000 mls @ 60 mls/hr IV .[id number] [facility] Last Admin: 08/04/17 23:11 Dose: 60 mls/hr Insulin Human Lispro (Humalog Low) 0 units SC 0000,0600,1200,1800 JAIMIE PRN Reason: Protocol Last Admin: 08/05/17 06:28 Dose: Not Given Metoprolol Tartrate (Lopressor) 5 mg IVP Q6H [facility] Last Admin: 08/05/17 04:32 Dose: Not Given Pantoprazole Sodium (Protonix Inj) 40 mg IVP DAILY [facility] Last Admin: 08/04/17 10:49 Dose: 40 mg Verapamil HCl (Verapamil Inj) 2.5 mg IVP Q6H PRN PRN Reason: for heart rate >130 - Labs Labs: 08/05/17 06:15 08/05/17 06:15 PT 12.4 SECONDS (9.4-12.5) 07/30/17 23:30 INR 1.09 (0.93-1.08) H 07/30/17 23:30 APTT 37.2 Seconds (25.1-36.5) H 07/30/17 23:30 - Constitutional Appears: Chronically Ill - Head Exam Head Exam: NORMAL INSPECTION - Neck Exam Neck Exam: absent: Meningismus - Respiratory Exam Respiratory Exam: Decreased Breath Sounds - Cardiovascular Exam Cardiovascular Exam: +S1, +S2 - GI/Abdominal Exam GI & Abdominal Exam: Soft. absent: Tenderness Assessment and Plan - Assessment and Plan (Free Text) Plan: Assessment S/P systemic inflammatory response syndrome with ventilator-dependent respiratory failure after cardiorespiratory arrest, consider due to possible subarachnoid hemorrhage / CVA R/O acute myocardial infarction chronic renal failure HTN dementia significant smoking history S/P ORIF Plan will continue to monitor the patient off antibiotics since he is at risk for healthcare-associated infections follow up further Cardiology and Neurology recommendations
--- NOTE | 2017-08-05 19:21 | CARD ---
APPROVED REPORT EKG Measurement Heart [id number] ID [id number] <Conclusion> Sinus rhythm with premature atrial complexes T wave abnormality, consider inferior ischemia Abnormal ECG
--- NOTE | 2017-08-06 00:17 | PN ---
DATE: 08/05/2017 SUBJECTIVE: Patient is seen lying in bed. He is arousable. He appears to be in mild distress, but he reports no shortness of breath. He denies any chest tightness. Family members are at bedside. PHYSICAL EXAMINATION: GENERAL: Elderly male, lying in bed. VITAL SIGNS: Blood pressure 128/56, heart rate 68, respiratory rate 20, temperature 96.3. HEENT: Normocephalic, atraumatic, positive pallor. NECK: Supple, no JVD. LUNGS: Bilateral rhonchi, expiratory wheeze, equal air entry. CARDIAC: S1, S2, regular rate and rhythm. No murmur, no rub. ABDOMEN: Soft, nondistended, nontender, bowel sounds present. EXTREMITIES: No lower extremity edema. INTAKE AND OUTPUT: 1540/1000. LABORATORY DATA: WBC 9, hemoglobin 8.2, hematocrit 26, platelets 216. Sodium 147, potassium 4.8, chloride 113, CO2 21, BUN 52, creatinine 4.6, glucose 92, calcium 8.3, phosphorus 5.4, magnesium 1.9, albumin 3.1. MEDICATIONS: List reviewed. ASSESSMENT: 1. Advanced chronic kidney disease, stage IV, mild acute kidney injury. 2. Severe anemia. 3. Advanced dementia. 4. Secondary hyperparathyroidism. 5. Hyperphosphatemia. PLAN: 1. No plans for renal replacement therapy. 2. Continue comfort care. 3. Awaiting hospice evaluation. Gayle Fernandez MD
[2017-08-06] MEDS: Albuterol-Ipratrop 3 mg / 0.5 (3 ml) UD IH SCH ×4 (01:06→19:28)
[2017-08-06] MEDS: Metoprolol 1 mg/ml Inj IVP SCH ×4 (05:44→22:00)
[2017-08-06] MEDS: Insulin Lispro (humaLOG) LOW Coverage SC SCH ×4 (05:47→17:24)
[2017-08-06 07:04] LABS: HEMOGLOBIN 8.5 g/dL (14.0-18.0); MEAN CELL VOLUME 84.8 fl (80.0-105.0); MEAN CORPUSCULAR HEMOGLOBIN 26.3 pg (25.0-35.0); MEAN PLATELET VOLUME 10.8 fl (7.0-11.0); RBC 3.23 10^6/uL (3.5-6.1); RED CELL DISTRIBUTION WIDTH 18.1 % (11.5-14.5); WHITE BLOOD COUNT 9.4 10^3/ul (4.5-11.0)
[2017-08-06 07:42] LABS: ALB/GLOB RATIO 0.9 (1.1-1.8); ALBUMIN 2.9 g/dL (3.0-4.8); CALCIUM 8.4 mg/dL (8.4-10.5)
[2017-08-06] MEDS ORDERED: Sod Polystyrene Sulf 15 gm/60 ml Susp PR ONE (09:20)
[2017-08-06] MEDS ORDERED: Sod Polystyrene Sulf 15 gm/60 ml Susp PO ONE (11:30)
[2017-08-06] MEDS: Valproate 500 MG in Sodium Chloride 0.9% 100 ML IVPB SCH ×2 (11:43→21:56)
--- NOTE | 2017-08-06 13:34 | CP.PCM.PN ---
<Nixon Perkins - Last Filed: 08/06/17 13:22> Subjective - Date & Time of Evaluation Date of Evaluation: 08/06/17 Time of Evaluation: 07:10 - Subjective Subjective: IM Progress Note for Hospitalist Service Patient seen and examined at bedside on the floors. Overnight, no acute events. Remains at baseline mentation, resting but easily agitated, not allowing feeds or some meds from med/nursing teams, but calms and allows feeds by family members. Had another discussion with family at bedside, and with pt' s Grandson (Adam) over the phone. Again reinforced remaining options are long- term care vs hospice. Adam is going to discuss with his father (Pt's son, appears to be one in charge of decisions for family), and they will notify by end of day their decision. Objective - Vital Signs/Intake and Output Vital Signs (last 24 hours): Temp Pulse Resp BP Pulse Ox 97.5 F L 71 18 108/52 L 92 L 08/06/17 08:28 08/06/17 08:28 08/06/17 08:28 08/06/17 11:44 08/06/17 08:28 Intake and Output: 08/06/17 08/06/17 06:59 18:59 Intake Total 120 0 Balance 120 0 - Medications Medications: Current Medications Acetaminophen (Tylenol 325mg Tab) 650 mg PO Q4 PRN PRN Reason: Fever >100.4 F Albuterol/Ipratropium (Duoneb 3 Mg/0.5 Mg (3 Ml) Ud) 3 ml IH [id number] [facility] Last Admin: 08/06/17 07:52 Dose: 3 ml Alprazolam (Xanax) 0.25 mg PO TID JAIMIE PRN Reason: Protocol Stop: 08/13/17 14:01 Doxercalciferol (Hectorol) 0.5 mcg NG DAILY JAIMIE Last Admin: 08/06/17 11:43 Dose: 0.5 mcg Haloperidol (Haldol) 0.25 mg PO Q4 PRN; Protocol PRN Reason: Agitation Heparin Sodium (Porcine) (Heparin) 5,000 units SC Q12 JAIMIE PRN Reason: Protocol Last Admin: 08/06/17 11:43 Dose: 5,000 units Valproate Sodium 500 mg/ (Sodium Chloride) 105 mls @ 100 mls/hr IVPB Q12 [facility] Last Admin: 08/06/17 11:43 Dose: 100 mls/hr Dextrose (Dextrose 5% In Water 1000 Ml) 1,000 mls @ 60 mls/hr IV .[id number] [facility] Last Admin: 08/05/17 16:10 Dose: 60 mls/hr Insulin Human Lispro (Humalog Low) 0 units SC 0000,0600,1200,1800 JAIMIE PRN Reason: Protocol Last Admin: 08/06/17 05:54 Dose: Not Given Metoprolol Tartrate (Lopressor) 5 mg IVP Q6H [facility] Last Admin: 08/06/17 11:44 Dose: Not Given Mirtazapine (Remeron) 7.5 mg PO HS [facility] Pantoprazole Sodium (Protonix Inj) 40 mg IVP DAILY [facility] Last Admin: 08/06/17 11:43 Dose: 40 mg Verapamil HCl (Verapamil Inj) 2.5 mg IVP Q6H PRN PRN Reason: for heart rate >130 - Labs Labs: 08/06/17 06:30 08/06/17 06:30 PT 12.4 SECONDS (9.4-12.5) 07/30/17 23:30 INR 1.09 (0.93-1.08) H 07/30/17 23:30 APTT 37.2 Seconds (25.1-36.5) H 07/30/17 23:30 - Additional Findings Additional findings: - Constitutional Appears: Non-toxic, Confused, Chronically Ill - Head Exam Head Exam: ATRAUMATIC, NORMAL INSPECTION, NORMOCEPHALIC - Eye Exam Eye Exam: Normal appearance. absent: Conjunctival injection, Scleral icterus Pupil Exam: absent: Irregular, Unequal - ENT Exam ENT Exam: Mucous Membranes Moist - Neck Exam Neck Exam: improved crackles on auscultation, bandaging covering site of prior R IJ TLC - Respiratory Exam Respiratory Exam: Rhonchi (improved bibasilar ronchi, some ronchourous sounds in neck appreciated; both most prominent on exhalation), NORMAL BREATHING PATTERN. absent: Accessory Muscle Use, Decreased Breath Sounds, Rales, Wheezes - Cardiovascular Exam Cardiovascular Exam: Irregular Rhythm, +S1, +S2. absent: Bradycardia, Tachycardia, REGULAR RHYTHM, JVD, RRR, +S4 - GI/Abdominal Exam GI & Abdominal Exam: Soft, Normal Bowel Sounds. absent: Distended, Firm, Guarding, Rigid, Tenderness (patient unable to articulate pain, but no reaction suggestive on pain on palpation), Diminished Bowel Sounds, Hypoactive Bowel Sounds - Extremities Exam Extremities Exam: Normal Capillary Refill, Pedal Edema (right foot and ankle > left, trace in left, +1 in right foot and ankle, none bilaterally above SCDs), wrist restraints in place - Neurological Exam awake but does not appear fully alert, stares into distance, occasionally tracking different family members within room, bilateral wrist restraints, few spontaneous movements of extremities noted during exam, agitated by staff attempting to feed but calm for family members attempting to feed - Psychiatric Exam unable to assess, non-verbal during exam - Skin Skin Exam: Dry, Intact, Normal Color, Warm Assessment and Plan - Assessment and Plan (Free Text) Assessment: This is an 87 yo male with PMH of HTN, CKD Stg IV, ORIF 3 weeks ago, and dementia brought in by EMS after an episode of unresponsiveness and possible cardiac arrest at home, s/p cardiac arrest in the ED, ROSC achieved after 1 dose of epi. Was intubated after ED code, now day 5 s/p extubation, weaned off levophed, now on Med/Surg. Palliative service has been consulted, pt now DNR/ DNI with filled POLST in chart, pending family decision for long-term care vs home-hospice. 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, would start baby aspirin, low-dose beta-gita, lovenox 30u SC daily; ASA and Lovenox cancelled due to Neuro recs to avoid in setting of possible intracranial bleed -weaned off Levophed, maintaining MAP > 65 -Extubated, protecting airway -as per ID, procal negative and cx negative thus far, continue to monitor off, less likely aspiration PNA -Hgb 8.5 (was 8.2), continue to monitor, transfuse if Hgb < 7 or dropping with signs of acute hemorrage (hemodynamic instability, end-organ dmg) -Speech-swallow cleared pt for pureed diet with honey-thick liquids, pt tolerating feeds from family, refuses feeds from staff -D/c tele as per Cardio 2) Hemorrhagic stroke - suspected -CTH shows 1.7 x 2.5 x 1.7 hemorrhage at level of 3rd vent (patient had a hx of hemorrhagic stroke 3 years ago as per family) -Neuro following, appreciate all recs: recs repeat head CT since MRI unreliable due to all motion artifacting -repeat Head CT read as unchanged, but said less likely bleed over obstructing colloid cyst; as per neuro can start heparin 5000sc q12 for DVT ppx -family reports hx of hemorrhagic stroke 3 yrs prior, but as per neuro, would have been resorbed by now, findings on scans represent new event -depakote 500mg BID IV for mood stabilization and seizure ppx as per Neuro 3) TESSY on CKD -Cr improved from 4.6 to 4.3 -as per Nephro, baseline is CKD Stage IV; due to poor prognosis and overall state pt is not a candidate for dialysis, recs involving Palliative Care -On D5W 60cc/hr; Na decreased from 147 to 141 today, continue to monitor, can switch to D5NS or D5 + 1/2 NS if sodium drops singificantly more -strict I's and O's, daily weights 4) Delirium overlying dementia -strict day/night cycle as feasible -psych consulted, recs cautious use of antipsychotics given ADR profile in the elderly -at high risk for delirium due to hx dementia, severity of illness, elderly population 5) Hx COPD -continue duonebs -V/q negative for PE -maintain SaO2 > 90%, trial off supplemental O2 and assess sats -excess oral secretions on neck auscultation, oral care and suctioning as able, given patient's combativeness with such efforts 6) Hyperkalemia -K 5.3, likely 2/2 renal dysfxn -Pt not accepting Kayexelate PO or CO from nursing, family at bedside able to get him to take PO -heart remains irregular but not grossly tachycardic/bradycardic, continue to monitor, will recheck K on AM labs Dispo: Med/Surg, pending family decision on long-term care vs home hospice FEN: Renal non-dialysis pureed diet with honey-thick liquids, D5W 60cc/hr Access: Peripheral IV Consults: Nephro, ID, Psych, ICU, Cardio, Neuro, Palliative Ppx: Protonix for GI, heparin sc for DVT Patient seen, reviewed, and discussed with attending, Dr. Agosto <Antonio Agosto - Last Filed: 08/06/17 17:58> Objective - Vital Signs/Intake and Output Vital Signs (last 24 hours): Temp Pulse Resp BP Pulse Ox 97.5 F L 71 18 108/52 L 92 L 08/06/17 08:28 08/06/17 08:28 08/06/17 08:28 08/06/17 11:44 08/06/17 08:28 Intake and Output: 08/06/17 08/06/17 06:59 18:59 Intake Total 120 0 Balance 120 0 - Medications Medications: Current Medications Acetaminophen (Tylenol 325mg Tab) 650 mg PO Q4 PRN PRN Reason: Fever >100.4 F Albuterol/Ipratropium (Duoneb 3 Mg/0.5 Mg (3 Ml) Ud) 3 ml IH [id number] [facility] Last Admin: 08/06/17 13:56 Dose: 3 ml Alprazolam (Xanax) 0.25 mg PO TID JAIMIE PRN Reason: Protocol Stop: 08/13/17 14:01 Last Admin: 08/06/17 15:13 Dose: 0.25 mg Doxercalciferol (Hectorol) 0.5 mcg NG DAILY [facility] Last Admin: 08/06/17 11:43 Dose: 0.5 mcg Haloperidol (Haldol) 0.25 mg PO Q4 PRN; Protocol PRN Reason: Agitation Heparin Sodium (Porcine) (Heparin) 5,000 units SC Q12 JAIMIE PRN Reason: Protocol Last Admin: 08/06/17 11:43 Dose: 5,000 units Valproate Sodium 500 mg/ (Sodium Chloride) 105 mls @ 100 mls/hr IVPB Q12 [facility] Last Admin: 08/06/17 11:43 Dose: 100 mls/hr Dextrose (Dextrose 5% In Water 1000 Ml) 1,000 mls @ 60 mls/hr IV .[id number] [facility] Last Admin: 08/05/17 16:10 Dose: 60 mls/hr Insulin Human Lispro (Humalog Low) 0 units SC 0000,0600,1200,1800 JAIMIE PRN Reason: Protocol Last Admin: 08/06/17 11:42 Dose: Not Given Metoprolol Tartrate (Lopressor) 5 mg IVP Q6H [facility] Last Admin: 08/06/17 11:44 Dose: Not Given Mirtazapine (Remeron) 7.5 mg PO HS JAIMIE Pantoprazole Sodium (Protonix Inj) 40 mg IVP DAILY [facility] Last Admin: 08/06/17 11:43 Dose: 40 mg Verapamil HCl (Verapamil Inj) 2.5 mg IVP Q6H PRN PRN Reason: for heart rate >130 - Labs Labs: 08/06/17 06:30 08/06/17 06:30 PT 12.4 SECONDS (9.4-12.5) 07/30/17 23:30 INR 1.09 (0.93-1.08) H 07/30/17 23:30 APTT 37.2 Seconds (25.1-36.5) H 07/30/17 23:30 Attending/Attestation - Attestation I have personally seen and examined this patient.: Yes I have fully participated in the care of the patient.: Yes I have reviewed all pertinent clinical information, including history, physical exam and plan: Yes Notes (Text): 08/06/17 17:54 attending note; Patient seen and examined with resident. patient is awake. on wrist restrains. patient has been agitated and restless. patient is little calm when family is around. Patient is a 87-year-old [place] male admitted post cardiac arrest brief CPR. Patient has history of chronic kidney disease, right ORIF, questionable dementia versus psychiatric disorder. questionable intracranial hemorrhage; neurology evaluation appreciated.head CT showed colloid cysts versus hemorrhage. No new changes. Started on subcutaneous heparin. Chronic kidney disease; case discussed with video games storywriter in detail. As per video games storywriter his baseline creatinine was 4-5 at [facility] few weeks ago. monitor urine output. Nephrology evaluation appreciated. No need for renal replacement therapy now. mildly elevated potassium. Kayexalate ordered. Behavior issues; psychiatric evaluation requested.currently on Haldol. Started on Xanax and Remeron. palliative care evaluation appreciated. Patient is DNI DNR. Family is considering hospice care. discussed with family in detail. Family is making decisions about discharge planning. case discussed with correctional casework specialist and protective services social worker in detail. prognosis is poor.
--- NOTE | 2017-08-06 18:35 | PN ---
DATE: 08/06/2017 SUBJECTIVE: The patient was seen today as per medical team request. The patient is very familiar to this blurb writer from prolonged hospitalization into the medical floor. The patient had status post cardiac arrest. The patient has multiple medical problems including hemorrhagic stroke, also acute kidney disease, COPD, hyperlipidemia. The patient obviously is in delirium stage. Medical team asked this blurb writer to adjust medication because the patient has episodes of agitation, aggression as well as very difficult to manage by nursing staff. The patient was seen and examined. There is no option to have meaningful conversation. Discussed with the nursing staff. The patient has episodes of kicking, screaming, spitting, trying to hit people whenever the patient's family is not there. The patient is confused and there is no option to have meaningful conversation. This blurb writer reviewed vital signs. Vital signs seems to be stable. Temperature 97.5, blood pressure 108/52, respiration 18, oxygen saturation is 92. MEDICATIONS: Reviewed. The patient is on Tylenol, DuoNeb, Xanax will be started very small dose 0.25 mg three times a day. The patient is on Haldol 0.25 mg p.o. every 4 hours as needed for agitation, heparin, Humalog, Lopressor, Remeron 7.5 mg at the nighttime schedule, Protonix, valproic acid 105 every 12 hours as well as verapamil. This blurb writer agree with Depakote. LABORATORY DATA: Reviewed. Hemoglobin and hematocrit are 8.5 and 27.4. Coagulation reviewed. Chemistry reviewed. Potassium 5.3, chloride 111. Valproic acid was from today 21. Mental status examination as this blurb writer described above. The patient is in delirium stage, kicking, spitting, trying to climb off the bed. No option to have meaningful conversation. Impulses are not predictable. IMPRESSION: Most likely, the patient is in delirium stage because collaterals were obtained from the patient's family last time when this blurb writer evaluated the patient. As per family, the patient does not have history of mental illness and was perfectly fine up until 3 weeks ago. PLAN: Continue current management. Continue current medication. Xanax was started as well as Remeron was started. The patient is on Depakote IV. We will follow up and advise accordingly. I hope that the patient will be feeling more comfortable. Thank you very much. Michelle Braga MD [facility] # [id number]
--- NOTE | 2017-08-06 23:16 | PN ---
DATE: 08/06/2017 SUBJECTIVE: The patient is in bed, in no acute distress, who was seen earlier this morning in room 367, bed 1. OBJECTIVE: VITAL SIGNS: On exam; temperature is 98, blood pressure is 120/70, respiratory rate of 18. HEENT: Examination of HEENT is unremarkable. NECK: Supple. LUNGS: Have decreased breath sounds. HEART: Normal S1 and S2. ABDOMEN: Soft, nontender. LABORATORY EXAMINATION: Reveals a white count of 9.4, hemoglobin of 8, platelets of 207. Chemistries reveals the BUN of 52, creatinine of 4.3. Toxicology is noted. Microbiology reveals the blood cultures are negative. Nares MRSA is negative and review of orders reveals the patient to be off of antibiotics. ASSESSMENT AND PLAN: An 87-year-old male, who is status post systemic inflammatory response syndrome, vent-dependent respiratory failure after cardiorespiratory arrest and consider due to possible subarachnoid hemorrhage, cerebrovascular accident, myocardial infarction, chronic renal failure, hypertension, dementia, long history of smoking and history of open reduction and internal fixation , has completed antibiotic therapy and currently off of antibiotics. The patient is at risk for developing nosocomial infections. Jamie Finn MD
[2017-08-07] MEDS: Albuterol-Ipratrop 3 mg / 0.5 (3 ml) UD IH SCH ×4 (01:11→20:42)
[2017-08-07] MEDS: Metoprolol 1 mg/ml Inj IVP SCH (04:17)
[2017-08-07] MEDS: Insulin Lispro (humaLOG) LOW Coverage SC SCH ×5 (07:30→22:00)
[2017-08-07] MEDS: Valproate 500 MG in Sodium Chloride 0.9% 100 ML IVPB SCH ×2 (10:39→21:43)
--- NOTE | 2017-08-07 11:38 | CP.PCM.PN ---
<Carissa Rubio - Last Filed: 08/07/17 11:36> Subjective - Date & Time of Evaluation Date of Evaluation: 08/07/17 Time of Evaluation: 11:36 - Subjective Subjective: IM Progress Note for Hospitalist Service- Carissa Rbuio, PGY-1 Pt S & E at bedside at 1123 Pt is resting comfortably in bed with restraints. Per nursing, pt has been agitated overnight, multiple aides were kicked when attempting to render care. Pt arousable to tactile stimuli. Case discussed with son at bedside w/grandson on the phone - family is requesting LTAC, however they do not have insurance or resources to pay for care. Grandson was requested to come talk to regarding future care options. Objective - Vital Signs/Intake and Output Vital Signs (last 24 hours): Temp Pulse Resp BP Pulse Ox 97.9 F 70 18 116/65 99 08/07/17 06:00 08/07/17 06:00 08/07/17 06:00 08/07/17 06:00 08/07/17 06:00 - Medications Medications: Current Medications Acetaminophen (Tylenol 325mg Tab) 650 mg PO Q4 PRN PRN Reason: Fever >100.4 F Albuterol/Ipratropium (Duoneb 3 Mg/0.5 Mg (3 Ml) Ud) 3 ml IH [id number] [facility] Last Admin: 08/07/17 07:51 Dose: 3 ml Alprazolam (Xanax) 0.25 mg PO TID JAIMIE PRN Reason: Protocol Stop: 08/13/17 14:01 Last Admin: 08/07/17 10:37 Dose: 0.25 mg Doxercalciferol (Hectorol) 0.5 mcg NG DAILY [facility] Last Admin: 08/07/17 10:37 Dose: 0.5 mcg Haloperidol (Haldol) 0.25 mg PO Q4 PRN; Protocol PRN Reason: Agitation Last Admin: 08/07/17 00:54 Dose: 0.25 mg Heparin Sodium (Porcine) (Heparin) 5,000 units SC Q12 JAIMIE PRN Reason: Protocol Last Admin: 08/07/17 10:38 Dose: 5,000 units Valproate Sodium 500 mg/ (Sodium Chloride) 105 mls @ 100 mls/hr IVPB Q12 [facility] Last Admin: 08/07/17 10:39 Dose: 100 mls/hr Dextrose (Dextrose 5% In Water 1000 Ml) 1,000 mls @ 60 mls/hr IV .[id number] [facility] Last Admin: 08/05/17 16:10 Dose: 60 mls/hr Insulin Human Lispro (Humalog Low) 0 units SC 0000,0600,1200,1800 [facility] PRN Reason: Protocol Last Admin: 08/07/17 07:30 Dose: Not Given Mirtazapine (Remeron) 7.5 mg PO HS [facility] Last Admin: 08/06/17 21:47 Dose: 7.5 mg Pantoprazole Sodium (Protonix Inj) 40 mg IVP DAILY [facility] Last Admin: 08/07/17 10:38 Dose: 40 mg Verapamil HCl (Verapamil Inj) 2.5 mg IVP Q6H PRN PRN Reason: for heart rate >130 - Labs Labs: 08/06/17 06:30 08/06/17 06:30 PT 12.4 SECONDS (9.4-12.5) 07/30/17 23:30 INR 1.09 (0.93-1.08) H 07/30/17 23:30 APTT 37.2 Seconds (25.1-36.5) H 07/30/17 23:30 - Constitutional Appears: Non-toxic, No Acute Distress, Older Than Stated Age, Confused, Chronically Ill - Head Exam Head Exam: ATRAUMATIC, NORMAL INSPECTION, NORMOCEPHALIC - Eye Exam Eye Exam: EOMI, Normal appearance - ENT Exam ENT Exam: Mucous Membranes Moist, Normal Exam - Neck Exam Neck Exam: Full ROM, Normal Inspection - Respiratory Exam Respiratory Exam: Wheezes, NORMAL BREATHING PATTERN - Cardiovascular Exam Cardiovascular Exam: REGULAR RHYTHM, +S1, +S2 - GI/Abdominal Exam GI & Abdominal Exam: Soft, Normal Bowel Sounds. absent: Distended, Tenderness - Extremities Exam Extremities Exam: Normal Inspection (restrained for patient and staff safety) - Neurological Exam Neurological Exam: absent: Alert, Awake (arousable to tactile stimuli), Oriented x3 - Psychiatric Exam Additional comments: sedated, but arousable to tactile stimuli - Skin Skin Exam: Dry, Intact, Normal Color, Warm Assessment and Plan - Assessment and Plan (Free Text) Assessment: 87 yo male with PMH of HTN, CKD Stg IV, ORIF 3 weeks ago, and dementia brought in by EMS s/p episode of unresponsiveness and possible cardiac arrest at home, s /p cardiac arrest in the ED, ROSC achieved after 1 dose of epi. Was intubated after ED code, now day 6 s/p extubation, weaned off levophed, now on Med/Surg. Palliative service has been consulted, pt DNR/DNI with filled POLST in chart. 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, start baby aspirin, low- dose beta-gita, lovenox 30u SC daily; ASA and Lovenox cancelled due to Neuro recs to avoid in setting of possible intracranial bleed Hgb stable in 8's Will transfuse if Hgb <7 Monitor Cont pureed diet w/honey thick liquids Familiy to feed pt, pt refusing nursing staff care Possible hemorrhagic stroke CTH shows 1.7 x 2.5 x 1.7 hemorrhage at level of 3rd vent (hx of hemorrhagic stroke 3 years ago as per family) repeat Head CT unchanged, less likely bleed over obstructing colloid cyst; Ok to start Hep for DVT ppx as per neuro Depakote as per neuro Neuro following TESSY on CKD w/baseline CKD Stage IV FU BMP Monitor CR No HD as per Pallative care, no a candidate Cont D5W 60cc/hr; Monitor Na Strict I's and O's daily weights Delirium overlying dementia strict day/night cycle as feasible psych consulted, recs cautious use of antipsychotics given ADR profile in the elderly at high risk for delirium due to hx dementia, severity of illness, elderly population Restraints PRN for pt & staff safety Xanax Haldol Remeron Hx COPD continue duonebs V/q neg for PE Target SaO2 > 90% PO care Suctioning PRN Hyperkalemia K 5.3 yesterday FU BMP Monitor Dispo: Med/Surg, explained in detail with son & grandson (Adam) that there are no options for LTAC or care resources due to lack of insurance, [facility] care only covers emergent hospitalization and stabilization. Pt to be stablized and discharged to family care. FEN: Renal non-dialysis pureed diet with honey-thick liquids, D5W 60cc/hr Access: Peripheral IV Consults: Nephro, ID, Psych, ICU, Cardio, Neuro, Palliative Ppx: Protonix for GI, heparin sc for DVT DW attending Joanne, PGY-1 <Antonio Agosto - Last Filed: 08/07/17 17:02> Objective - Vital Signs/Intake and Output Vital Signs (last 24 hours): Temp Pulse Resp BP Pulse Ox 97.9 F 70 18 116/65 99 08/07/17 06:00 08/07/17 06:00 08/07/17 06:00 08/07/17 06:00 08/07/17 06:00 - Medications Medications: Current Medications Acetaminophen (Tylenol 325mg Tab) 650 mg PO Q4 PRN PRN Reason: Fever >100.4 F Albuterol/Ipratropium (Duoneb 3 Mg/0.5 Mg (3 Ml) Ud) 3 ml IH [id number] [facility] Last Admin: 08/07/17 13:37 Dose: 3 ml Alprazolam (Xanax) 0.25 mg PO TID JAIMIE PRN Reason: Protocol Stop: 08/13/17 14:01 Last Admin: 08/07/17 10:37 Dose: 0.25 mg Doxercalciferol (Hectorol) 0.5 mcg NG DAILY [facility] Last Admin: 08/07/17 10:37 Dose: 0.5 mcg Heparin Sodium (Porcine) (Heparin) 5,000 units SC Q12 JAIMIE PRN Reason: Protocol Last Admin: 08/07/17 10:38 Dose: 5,000 units Valproate Sodium 500 mg/ (Sodium Chloride) 105 mls @ 100 mls/hr IVPB Q12 [facility] Last Admin: 08/07/17 10:39 Dose: 100 mls/hr Dextrose (Dextrose 5% In Water 1000 Ml) 1,000 mls @ 60 mls/hr IV .[id number] [facility] Last Admin: 08/05/17 16:10 Dose: 60 mls/hr Insulin Human Lispro (Humalog Low) 0 units SC 0000,0600,1200,1800 JAIMIE PRN Reason: Protocol Last Admin: 08/07/17 12:15 Dose: Not Given Mirtazapine (Remeron) 15 mg PO HS JAIMIE Pantoprazole Sodium (Protonix Inj) 40 mg IVP DAILY [facility] Last Admin: 08/07/17 10:38 Dose: 40 mg Quetiapine Fumarate (Seroquel) 12.5 mg PO HS JAIMIE PRN Reason: Protocol Verapamil HCl (Verapamil Inj) 2.5 mg IVP Q6H PRN PRN Reason: for heart rate >130 Ziprasidone (Geodon Inj) 10 mg IM Q12 PRN; Protocol PRN Reason: agitation/aggression/psychosis - Labs Labs: 08/06/17 06:30 08/07/17 12:55 PT 12.4 SECONDS (9.4-12.5) 07/30/17 23:30 INR 1.09 (0.93-1.08) H 07/30/17 23:30 APTT 37.2 Seconds (25.1-36.5) H 07/30/17 23:30 Attending/Attestation - Attestation I have personally seen and examined this patient.: Yes I have fully participated in the care of the patient.: Yes I have reviewed all pertinent clinical information, including history, physical exam and plan: Yes Notes (Text): 08/07/17 17:01 attending note; Patient seen and examined with resident. patient is awake. on wrist restrains. patient has been agitated and restless. Patient is a 87-year-old Azerbaijani male admitted post cardiac arrest brief CPR. Patient has history of chronic kidney disease, right ORIF, questionable dementia versus psychiatric disorder. questionable intracranial hemorrhage; neurology evaluation appreciated.head CT showed colloid cysts versus hemorrhage. No new changes. Started on subcutaneous heparin. Chronic kidney disease; case discussed with solar electric/photovoltaic installer in detail. As per solar electric/photovoltaic installer his baseline creatinine was 4-5 at [facility] [place] [place] few weeks ago. monitor urine output. Nephrology evaluation appreciated. No need for renal replacement therapy now. Behavior issues; psychiatric evaluation requested.currently on Haldol. Started on Xanax and Remeron. palliative care evaluation appreciated. Patient is DNI DNR. Family is considering hospice care. discussed with family in detail. case discussed with patient's son Chuy and grandson Adam in detail. case discussed with window caser and psych social worker in detail. prognosis is poor.
[2017-08-07 13:19] LABS: CALCIUM 7.8 mg/dL (8.4-10.5)
--- NOTE | 2017-08-07 14:24 | PN ---
DATE: 08/07/2017 SUBJECTIVE: The patient is in bed in no acute distress, nontoxic. PHYSICAL EXAMINATION: VITAL SIGNS: Temperature is 97, blood pressure is 116/60, respiratory rate of 20, heart rate of 60. HEENT: Unremarkable. NECK: Supple. LUNGS: Have decreased breath sounds. HEART: Normal S1, S2. ABDOMEN: Soft, nontender. No rebound or guarding. No masses. LABORATORY EXAMINATION: Reveals a white count of 9.4, hemoglobin of 8, platelets of 207. Chemistries reveals a BUN of 52, creatinine of 4.3. Procalcitonin is noted and toxicology is noted. ASSESSMENT AND PLAN: This is an 87-year-old male with status post systemic inflammatory response syndrome, vent-dependent respiratory failure after cardiorespiratory arrest and possible subarachnoid hemorrhage, cerebrovascular accident, myocardial infarction, chronic renal failure, hypertension, dementia, long history of smoking and history of open reduction internal fixation and complete the antibiotics, currently off of antibiotics . Jamie Finn MD
--- NOTE | 2017-08-07 14:59 | PN ---
DATE: 08/07/2017 SUBJECTIVE: The patient is seen lying in bed. He seems to be resting comfortably. He still has labored loud breathing. He denies any pain. Denies any shortness of breath. PHYSICAL EXAMINATION: GENERAL: Elderly male lying in bed. VITAL SIGNS: Blood pressure 116/65, heart rate 70, respiratory rate 18, temperature 97.9. HEENT: Normocephalic, atraumatic. Positive pallor. NECK: Supple, no JVD. LUNGS: Bilateral equal entry, bilateral rhonchi, expiratory wheeze. CARDIAC: S1, S2. Regular rate and rhythm. No murmur, no rub. ABDOMEN: Soft, nondistended, nontender. Bowel sounds present. EXTREMITIES: No lower extremity edema. INTAKE AND OUTPUT: Not charted. LABORATORY DATA: Hemoglobin 8.5. Sodium 139, potassium 4.9, chloride 102, CO2 21, BUN 49, creatinine 3.6, glucose 82, calcium 7.8. Cultures, no growth. CURRENT MEDICATIONS: List reviewed. ASSESSMENT AND PLAN: 1. Advanced chronic kidney disease stage IV. 2. Acute kidney injury, resolving. 3. Anemia of chronic kidney disease. 3. Status post cardiac arrest. 4. Underlying dementia. 5. Chronic obstructive pulmonary disease. PLAN: 1. Renal function is stable, in fact improved, no plans for renal replacement therapy. 2. At this time, we will discontinue followup. Please request consultation if needed again. Gayle Fernandez MD
--- NOTE | 2017-08-07 21:34 | PN ---
DATE: 08/07/2017 SUBJECTIVE: The patient is in delirium stage, multiple medical issues. The patient is in DNI and DNR. This short story writer was involved into the patient care for medication management and for the patient to feel more comfortable. The patient currently is on Xanax 0.25 mg three times a day scheduled as well as Remeron 15 mg will be increased today at the nighttime as well as Geodon 10 mg every 12 hours will be ordered. At the same time, Seroquel 12.5 mg at the nighttime will be scheduled. No meaningful conversation possible as per nursing staff. The patient has mild improvement with the patient presentation, slept better last night and it seems Xanax is helping the patient. VITAL SIGNS: Seems to be stable. Temperature 97.9, blood pressure 116/65, respiration 18, oxygen saturation is 99. MEDICATIONS: Reviewed. LABORATORY DATA: Reviewed. Most recent from yesterday. As per the collateral information from the nursing staff, the patient has episodes of aggression and agitation, trying to swing and kick and spit at the nursing staff and doctors. IMPRESSION: The patient is in delirium stage, multifactorial. PLAN: Continue Xanax, continue Seroquel, continue Geodon. There is no need for Psychiatry to follow up on this patient over the weekend unless acute change in mental status. The patient was doing better on current medications. This short story writer will follow up on this patient on Thursday. Should you have any questions or if the patient is agitated or need immediate psychiatric attention call Dr. Baires over the weekend. Thank you very much for letting me participate in care of your patient. Michelle Braga MD
[2017-08-08] MEDS: Albuterol-Ipratrop 3 mg / 0.5 (3 ml) UD IH SCH ×4 (02:21→20:14)
[2017-08-08] MEDS: Valproate 500 MG in Sodium Chloride 0.9% 100 ML IVPB SCH ×2 (10:12→21:31)
--- NOTE | 2017-08-08 11:29 | CP.PCM.PN ---
<Humble Amaral - Last Filed: 08/08/17 11:17> Subjective - Date & Time of Evaluation Date of Evaluation: 08/08/17 Time of Evaluation: 11:17 - Subjective Subjective: Medicine Progress Note Pt seen and examined at bedside. No acute overnight events. Patient currently restrained due to agitation previously. ROS unobtainable due to patient's current mental status. Objective - Vital Signs/Intake and Output Vital Signs (last 24 hours): Temp Pulse Resp BP Pulse Ox 97.3 F L 66 18 122/49 L 95 08/08/17 07:48 08/08/17 07:48 08/08/17 07:48 08/08/17 07:48 08/08/17 07:48 Intake and Output: 08/08/17 08/08/17 06:59 18:59 Intake Total 1320 Balance 1320 - Medications Medications: Current Medications Acetaminophen (Tylenol 325mg Tab) 650 mg PO Q4 PRN PRN Reason: Fever >100.4 F Albuterol/Ipratropium (Duoneb 3 Mg/0.5 Mg (3 Ml) Ud) 3 ml IH [id number] [facility] Last Admin: 08/08/17 07:53 Dose: 3 ml Alprazolam (Xanax) 0.25 mg PO TID JAIMIE PRN Reason: Protocol Stop: 08/13/17 14:01 Last Admin: 08/08/17 10:16 Dose: 0.25 mg Doxercalciferol (Hectorol) 0.5 mcg PO DAILY [facility] Heparin Sodium (Porcine) (Heparin) 5,000 units SC Q12 JAIMIE PRN Reason: Protocol Last Admin: 08/08/17 10:16 Dose: 5,000 units Valproate Sodium 500 mg/ (Sodium Chloride) 105 mls @ 100 mls/hr IVPB Q12 [facility] Last Admin: 08/08/17 10:12 Dose: 100 mls/hr Dextrose (Dextrose 5% In Water 1000 Ml) 1,000 mls @ 60 mls/hr IV .[id number] [facility] Last Admin: 08/08/17 10:05 Dose: 60 mls/hr Mirtazapine (Remeron) 15 mg PO HS [facility] Last Admin: 08/07/17 21:25 Dose: 15 mg Pantoprazole Sodium (Protonix Inj) 40 mg IVP DAILY [facility] Last Admin: 08/08/17 10:17 Dose: 40 mg Quetiapine Fumarate (Seroquel) 12.5 mg PO HS JAIMIE PRN Reason: Protocol Last Admin: 08/07/17 21:25 Dose: 12.5 mg Verapamil HCl (Verapamil Inj) 2.5 mg IVP Q6H PRN PRN Reason: for heart rate >130 Ziprasidone (Geodon Inj) 10 mg IM Q12 PRN; Protocol PRN Reason: agitation/aggression/psychosis - Labs Labs: 08/06/17 06:30 08/07/17 12:55 PT 12.4 SECONDS (9.4-12.5) 07/30/17 23:30 INR 1.09 (0.93-1.08) H 07/30/17 23:30 APTT 37.2 Seconds (25.1-36.5) H 07/30/17 23:30 - Constitutional Appears: No Acute Distress, Chronically Ill - Head Exam Head Exam: NORMAL INSPECTION - Eye Exam Eye Exam: Normal appearance - ENT Exam ENT Exam: Mucous Membranes Moist, Normal Exam - Neck Exam Neck Exam: Normal Inspection - Respiratory Exam Respiratory Exam: Wheezes. absent: Decreased Breath Sounds, Clear to Ausculation Bilateral, Rales, Rhonchi, Respiratory Distress - Cardiovascular Exam Cardiovascular Exam: RRR, +S1, +S2. absent: Gallop, Rubs, Murmur - GI/Abdominal Exam GI & Abdominal Exam: Soft. absent: Distended, Guarding, Tenderness, Rebound - Extremities Exam Extremities Exam: Normal Inspection - Neurological Exam Neurological Exam: absent: Alert, Awake, Oriented x3 Additional comments: arousable to tactile stimuli - Psychiatric Exam Psychiatric exam: Normal Affect, Normal Mood - Skin Skin Exam: Dry, Intact, Normal Color, Warm Assessment and Plan - Assessment and Plan (Free Text) Assessment: 87 yo male with PMH of HTN, CKD Stg IV, ORIF 3 weeks ago, and dementia brought in by EMS s/p episode of unresponsiveness and possible cardiac arrest at home, s /p cardiac arrest in the ED, ROSC achieved after 1 dose of epi. Was intubated after ED code, now day 6 s/p extubation, weaned off levophed, now on Med/Surg. Palliative service has been consulted, pt DNR/DNI with filled POLST in chart. Plan: 1. 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 Possible hemorrhagic stroke - CTH shows 1.7 x 2.5 x 1.7 hemorrhage at level of 3rd vent (hx of hemorrhagic stroke 3 years ago as per family) - repeat Head CT unchanged, less likely bleed over obstructing colloid cyst; - Ok to cont Hep for DVT ppx as per neuro - Depakote as per neuro - Neuro following 3. TESSY on CKD w/baseline CKD Stage IV - Monitor CR - No HD as per Pallative care, no a candidate - Cont D5W 60cc/hr; - Monitor Na - Strict I's and O's - daily weights 4. Delirium overlying dementia - strict day/night cycle as feasible - psych consulted, recs cautious use of antipsychotics given ADR profile in the elderly - at high risk for delirium due to hx dementia, severity of illness, elderly population - Restraints PRN for pt & staff safety - Xanax - Geodon - Remeron - Seroquel 5. Hx COPD - continue duonebs - V/q neg for PE - Target SaO2 > 90% - PO care - Suctioning PRN 6. Hyperkalemia, resolved - Cont to monitor Ppx: Protonix for GI, heparin sc for DVT Pt seen and discussed in detail with Dr. Agosto. Foster Amaral, PGY1 <Antonio Agosto - Last Filed: 08/08/17 14:40> Objective - Vital Signs/Intake and Output Vital Signs (last 24 hours): Temp Pulse Resp BP Pulse Ox 97.3 F L 66 18 122/49 L 95 08/08/17 07:48 08/08/17 07:48 08/08/17 07:48 08/08/17 07:48 08/08/17 07:48 Intake and Output: 08/08/17 08/08/17 06:59 18:59 Intake Total 1320 Balance 1320 - Medications Medications: Current Medications Acetaminophen (Tylenol 325mg Tab) 650 mg PO Q4 PRN PRN Reason: Fever >100.4 F Albuterol/Ipratropium (Duoneb 3 Mg/0.5 Mg (3 Ml) Ud) 3 ml IH [id number] [facility] Last Admin: 08/08/17 14:16 Dose: 3 ml Alprazolam (Xanax) 0.25 mg PO TID JAIMIE PRN Reason: Protocol Stop: 08/13/17 14:01 Last Admin: 08/08/17 10:16 Dose: 0.25 mg Doxercalciferol (Hectorol) 0.5 mcg PO DAILY [facility] Heparin Sodium (Porcine) (Heparin) 5,000 units SC Q12 JAIMIE PRN Reason: Protocol Last Admin: 08/08/17 10:16 Dose: 5,000 units Valproate Sodium 500 mg/ (Sodium Chloride) 105 mls @ 100 mls/hr IVPB Q12 [facility] Last Admin: 08/08/17 10:12 Dose: 100 mls/hr Dextrose (Dextrose 5% In Water 1000 Ml) 1,000 mls @ 60 mls/hr IV .[id number] [facility] Last Admin: 08/08/17 10:05 Dose: 60 mls/hr Mirtazapine (Remeron) 15 mg PO HS [facility] Last Admin: 08/07/17 21:25 Dose: 15 mg Pantoprazole Sodium (Protonix Inj) 40 mg IVP DAILY [facility] Last Admin: 08/08/17 10:17 Dose: 40 mg Quetiapine Fumarate (Seroquel) 12.5 mg PO HS [facility] PRN Reason: Protocol Last Admin: 08/07/17 21:25 Dose: 12.5 mg Verapamil HCl (Verapamil Inj) 2.5 mg IVP Q6H PRN PRN Reason: for heart rate >130 Ziprasidone (Geodon Inj) 10 mg IM Q12 PRN; Protocol PRN Reason: agitation/aggression/psychosis - Labs Labs: 08/06/17 06:30 08/07/17 12:55 PT 12.4 SECONDS (9.4-12.5) 07/30/17 23:30 INR 1.09 (0.93-1.08) H 07/30/17 23:30 APTT 37.2 Seconds (25.1-36.5) H 07/30/17 23:30 Attending/Attestation - Attestation I have personally seen and examined this patient.: Yes I have fully participated in the care of the patient.: Yes I have reviewed all pertinent clinical information, including history, physical exam and plan: Yes Notes (Text): 08/08/17 14:38 attending note; Patient seen and examined with resident. patient is awake. on wrist restrains. patient has been agitated and restless. nursing staff informed to continue wrist restraints and monitor closely. Patient is a 87-year-old [place] male admitted post cardiac arrest brief CPR. Patient has history of chronic kidney disease, right ORIF, questionable dementia versus psychiatric disorder. questionable intracranial hemorrhage; neurology evaluation appreciated.head CT showed colloid cysts versus hemorrhage. No new changes. Started on subcutaneous heparin. Chronic kidney disease;creatinine is stable. Behavior issues; psychiatric evaluation requested. Mikedon added. Started on Xanax and Remeron. palliative care evaluation appreciated. Patient is DNI DNR. Family is considering hospice care. discussed with family in detail. case discussed with patient's son Chuy and grandson Adam in detail yesterday. case discussed with senior case manager and certified social workers in health care in detail. prognosis is poor.
--- NOTE | 2017-08-08 16:01 | PN ---
DATE: 08/08/2017 SUBJECTIVE: The patient seen in bed, in no acute distress, nontoxic. PHYSICAL EXAMINATION: VITAL SIGNS: Temperature is 97, blood pressure is 120/40, respiratory rate of 18. HEENT: Unremarkable. NECK: Supple. LUNGS: Decreased breath sounds. HEART: Normal S1, S2. ABDOMEN: Soft. LABORATORY EXAMINATION: Reveals the patient's white count to be 9.4, hemoglobin of 8.5, platelets of 207. BUN of 49, creatinine of 3.6. Review of orders reveals the patient to be on Xanax. The patient is currently off antibiotics, afebrile. The patient is at risk for developing nosocomial infections Jamie Finn MD
[2017-08-09] MEDS: Albuterol-Ipratrop 3 mg / 0.5 (3 ml) UD IH SCH ×5 (01:22→20:30)
[2017-08-09 07:21] LABS: HEMOGLOBIN 8.9 g/dL (14.0-18.0); MEAN CELL VOLUME 85.2 fl (80.0-105.0); MEAN CORPUSCULAR HEMOGLOBIN 26.4 pg (25.0-35.0); MEAN PLATELET VOLUME 10.3 fl (7.0-11.0); RBC 3.37 10^6/uL (3.5-6.1); RED CELL DISTRIBUTION WIDTH 17.8 % (11.5-14.5); WHITE BLOOD COUNT 8.1 10^3/ul (4.5-11.0)
[2017-08-09 07:26] LABS: CALCIUM 8.7 mg/dL (8.4-10.5)
[2017-08-09] MEDS ORDERED: Sod Polystyrene Sulf 15 gm/60 ml Susp PO ONE (08:17)
--- NOTE | 2017-08-09 09:51 | PN ---
DATE: 08/09/2017 SUBJECTIVE: The patient is in bed, in no acute distress, was seen earlier. The patient was combating at night as per the night nurse. PHYSICAL EXAMINATION: VITAL SIGNS: Temperature is 98, blood pressure is 130/60, respiratory rate of 20, heart rate of 66. HEENT: Examination of HEENT is unremarkable. NECK: Supple. LUNGS: Have decreased breath sounds. HEART: Normal S1, S2. ABDOMEN: Soft, nontender. LABORATORY DATA: Laboratory examination reveals a white count of 8.1, hemoglobin of 8, platelets of 336. Chemistries reveals a BUN of 46, creatinine of 3.8. Procalcitonin is noted at 0.28 and toxicology is noted. Blood cultures are negative. ASSESSMENT AND PLAN: An 87-year-old male, status post systemic inflammatory response syndrome, ventilator-dependent respiratory failure after cardiorespiratory arrest, possible subarachnoid hemorrhage, cerebrovascular accident, myocardial infarction, chronic renal failure, hypertension, dementia, long history of smoking and history of open reduction and internal fixation and is currently now off of antibiotics, afebrile. The patient is at risk for developing nosocomial infections. Jamie Finn MD
[2017-08-09] MEDS: Valproate 500 MG in Sodium Chloride 0.9% 100 ML IVPB SCH ×2 (11:17→22:21)
--- NOTE | 2017-08-09 11:38 | CP.PCM.PN ---
<CristinHumble - Last Filed: 08/09/17 11:33> Subjective - Date & Time of Evaluation Date of Evaluation: 08/09/17 Time of Evaluation: 11:33 - Subjective Subjective: Medicine Progress Note Pt seen and examined at bedside. Per nursing, patient agitated overnight and required medications. ROS unobtainable due to patient's current mental status. Objective - Vital Signs/Intake and Output Vital Signs (last 24 hours): Temp Pulse Resp BP Pulse Ox 97.6 F 66 20 136/62 94 L 08/09/17 07:43 08/09/17 07:43 08/09/17 07:43 08/09/17 07:43 08/09/17 07:43 Intake and Output: 08/09/17 08/09/17 06:59 18:59 Intake Total 380 Balance 380 - Medications Medications: Current Medications Acetaminophen (Tylenol 325mg Tab) 650 mg PO Q4 PRN PRN Reason: Fever >100.4 F Albuterol/Ipratropium (Duoneb 3 Mg/0.5 Mg (3 Ml) Ud) 3 ml IH [id number] [facility] Last Admin: 08/09/17 08:02 Dose: Not Given Alprazolam (Xanax) 0.25 mg PO TID JAIMIE PRN Reason: Protocol Stop: 08/13/17 14:01 Last Admin: 08/09/17 11:23 Dose: 0.25 mg Doxercalciferol (Hectorol) 0.5 mcg PO DAILY [facility] Last Admin: 08/09/17 11:23 Dose: 0.5 mcg Heparin Sodium (Porcine) (Heparin) 5,000 units SC Q12 JAIMIE PRN Reason: Protocol Last Admin: 08/09/17 11:23 Dose: 5,000 units Valproate Sodium 500 mg/ (Sodium Chloride) 105 mls @ 100 mls/hr IVPB Q12 [facility] Last Admin: 08/09/17 11:17 Dose: 100 mls/hr Dextrose (Dextrose 5% In Water 1000 Ml) 1,000 mls @ 60 mls/hr IV .[id number] [facility] Last Admin: 08/09/17 03:08 Dose: 60 mls/hr Mirtazapine (Remeron) 15 mg PO HS [facility] Last Admin: 08/08/17 21:34 Dose: 15 mg Pantoprazole Sodium (Protonix Inj) 40 mg IVP DAILY [facility] Last Admin: 08/09/17 11:24 Dose: 40 mg Quetiapine Fumarate (Seroquel) 12.5 mg PO HS JAIMIE PRN Reason: Protocol Last Admin: 08/08/17 21:31 Dose: 12.5 mg Verapamil HCl (Verapamil Inj) 2.5 mg IVP Q6H PRN PRN Reason: for heart rate >130 Ziprasidone (Geodon Inj) 10 mg IM Q12 PRN; Protocol PRN Reason: agitation/aggression/psychosis - Labs Labs: 08/09/17 06:30 08/09/17 06:30 PT 12.4 SECONDS (9.4-12.5) 07/30/17 23:30 INR 1.09 (0.93-1.08) H 07/30/17 23:30 APTT 37.2 Seconds (25.1-36.5) H 07/30/17 23:30 - Constitutional Appears: No Acute Distress, Chronically Ill - Head Exam Head Exam: NORMAL INSPECTION - Eye Exam Eye Exam: Normal appearance - ENT Exam ENT Exam: Mucous Membranes Moist, Normal Exam - Neck Exam Neck Exam: Normal Inspection - Respiratory Exam Respiratory Exam: Wheezes. absent: Decreased Breath Sounds, Clear to Ausculation Bilateral, Rales, Rhonchi - Cardiovascular Exam Cardiovascular Exam: RRR, +S1, +S2. absent: Gallop, Rubs, Murmur - GI/Abdominal Exam GI & Abdominal Exam: Soft. absent: Distended, Guarding, Tenderness, Rebound - Extremities Exam Extremities Exam: Normal Inspection - Back Exam Back Exam: NORMAL INSPECTION - Neurological Exam Neurological Exam: absent: Alert, Awake, Oriented x3 Additional comments: Arousable to tactile stimuli - Skin Skin Exam: Dry, Intact, Normal Color, Warm Assessment and Plan - Assessment and Plan (Free Text) Assessment: 87 yo male with PMH of HTN, CKD Stg IV, ORIF 3 weeks ago, and dementia brought in by EMS s/p episode of unresponsiveness and possible cardiac arrest at home, s /p cardiac arrest in the ED, ROSC achieved after 1 dose of epi. Was intubated after ED code, now day 6 s/p extubation, weaned off levophed, now on Med/Surg. Palliative service has been consulted, pt DNR/DNI with filled POLST in chart. Plan: 1. 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 Possible hemorrhagic stroke - CTH shows 1.7 x 2.5 x 1.7 hemorrhage at level of 3rd vent (hx of hemorrhagic stroke 3 years ago as per family) - repeat Head CT unchanged, less likely bleed over obstructing colloid cyst; - Ok to cont Hep for DVT ppx as per neuro - Depakote as per neuro - Neuro following 3. TESSY on CKD w/baseline CKD Stage IV - Monitor CR - No HD as per Pallative care, no a candidate - Cont D5W 60cc/hr; - Monitor Na - Strict I's and O's - daily weights 4. Delirium overlying dementia - strict day/night cycle as feasible - psych consulted, recs cautious use of antipsychotics given ADR profile in the elderly - at high risk for delirium due to hx dementia, severity of illness, elderly population - Restraints discontinued, will monitor closely. May need to be reapplied if patient becomes agitated. - Xanax - Geodon - Remeron - Seroquel 5. Hx COPD - continue duonebs - V/q neg for PE - Target SaO2 > 90% - PO care - Suctioning PRN 6. Hyperkalemia - Elevated today - Kayexelate given - Cont to monitor Ppx: Protonix for GI, heparin sc for DVT Pt seen and discussed in detail with Dr. Agosto. Foster Amaral, PGY1 <Antonio Agosto - Last Filed: 08/09/17 12:20> Objective - Vital Signs/Intake and Output Vital Signs (last 24 hours): Temp Pulse Resp BP Pulse Ox 97.6 F 66 20 136/62 94 L 08/09/17 07:43 08/09/17 07:43 08/09/17 07:43 08/09/17 07:43 08/09/17 07:43 Intake and Output: 08/09/17 08/09/17 06:59 18:59 Intake Total 380 Balance 380 - Medications Medications: Current Medications Acetaminophen (Tylenol 325mg Tab) 650 mg PO Q4 PRN PRN Reason: Fever >100.4 F Albuterol/Ipratropium (Duoneb 3 Mg/0.5 Mg (3 Ml) Ud) 3 ml IH [id number] [facility] Last Admin: 08/09/17 08:02 Dose: Not Given Alprazolam (Xanax) 0.25 mg PO TID JAIMIE PRN Reason: Protocol Stop: 08/13/17 14:01 Last Admin: 08/09/17 11:23 Dose: 0.25 mg Doxercalciferol (Hectorol) 0.5 mcg PO DAILY [facility] Last Admin: 08/09/17 11:23 Dose: 0.5 mcg Heparin Sodium (Porcine) (Heparin) 5,000 units SC Q12 JAIMIE PRN Reason: Protocol Last Admin: 08/09/17 11:23 Dose: 5,000 units Valproate Sodium 500 mg/ (Sodium Chloride) 105 mls @ 100 mls/hr IVPB Q12 [facility] Last Admin: 08/09/17 11:17 Dose: 100 mls/hr Dextrose (Dextrose 5% In Water 1000 Ml) 1,000 mls @ 60 mls/hr IV .[id number] [facility] Last Admin: 08/09/17 03:08 Dose: 60 mls/hr Mirtazapine (Remeron) 15 mg PO HS [facility] Last Admin: 08/08/17 21:34 Dose: 15 mg Pantoprazole Sodium (Protonix Inj) 40 mg IVP DAILY [facility] Last Admin: 08/09/17 11:24 Dose: 40 mg Quetiapine Fumarate (Seroquel) 12.5 mg PO HS [facility] PRN Reason: Protocol Last Admin: 08/08/17 21:31 Dose: 12.5 mg Verapamil HCl (Verapamil Inj) 2.5 mg IVP Q6H PRN PRN Reason: for heart rate >130 Ziprasidone (Geodon Inj) 10 mg IM Q12 PRN; Protocol PRN Reason: agitation/aggression/psychosis - Labs Labs: 08/09/17 06:30 08/09/17 06:30 PT 12.4 SECONDS (9.4-12.5) 07/30/17 23:30 INR 1.09 (0.93-1.08) H 07/30/17 23:30 APTT 37.2 Seconds (25.1-36.5) H 07/30/17 23:30 Attending/Attestation - Attestation I have personally seen and examined this patient.: Yes I have fully participated in the care of the patient.: Yes I have reviewed all pertinent clinical information, including history, physical exam and plan: Yes Notes (Text): 08/09/17 12:17 attending note; Patient seen and examined with resident. patient is awake. off wrist restrains. we will monitor off restraints closely. patient has been agitated and restless at times. Patient is a 87-year-old [place] male admitted post cardiac arrest brief CPR. Patient has history of chronic kidney disease, right ORIF, questionable dementia versus psychiatric disorder. questionable intracranial hemorrhage; neurology evaluation appreciated.head CT showed colloid cysts versus hemorrhage. No new changes. Started on subcutaneous heparin. Chronic kidney disease; creatinine is 3.8. mild hyperkalemia; Kayexalate ordered. low potassium diet ordered. Behavior issues; psychiatric evaluation requested. Mikedon added. Started on Xanax and Remeron. palliative care evaluation appreciated. Patient is DNI DNR. discussed with family in detail. case discussed with patient's son Chuy and grandson Adam in detail. case monitor/web content & social media manager evaluation appreciated. Possible discharge home family if patient's agitaion improves. prognosis is poor.
[2017-08-10] MEDS: Albuterol-Ipratrop 3 mg / 0.5 (3 ml) UD IH SCH ×5 (01:16→19:50)
[2017-08-10 06:47] LABS: HEMOGLOBIN 9.2 g/dL (14.0-18.0); MEAN CELL VOLUME 84.9 fl (80.0-105.0); MEAN CORPUSCULAR HEMOGLOBIN 26.7 pg (25.0-35.0); MEAN CORPUSCULAR HGB CONC 31.5 g/dl (31.0-37.0); MEAN PLATELET VOLUME 10.7 fl (7.0-11.0); RBC 3.44 10^6/uL (3.5-6.1); RED CELL DISTRIBUTION WIDTH 18.2 % (11.5-14.5); WHITE BLOOD COUNT 9.4 10^3/ul (4.5-11.0)
[2017-08-10 06:55] LABS: CALCIUM 8.8 mg/dL (8.4-10.5)
[2017-08-10 07:49] VITALS: RESP 18
[2017-08-10] MEDS ORDERED: Sod Polystyrene Sulf 15 gm/60 ml Susp PR ONE (07:58)
[2017-08-10] MEDS: Valproate 500 MG in Sodium Chloride 0.9% 100 ML IVPB SCH (10:07)
--- NOTE | 2017-08-10 13:45 | CP.PCM.DIS ---
<Carissa Rubio - Last Filed: 08/10/17 13:42> Provider - Provider Date of Admission: 07/31/17 01:43 Attending physician: Bill Tristan MD Primary care physician: NO PRIMARY CARE PROVIDER Consults: Neurology Cardiology Psychiatry Infectious disease Critical care Nephrology Pallative care Time Spent in preparation of Discharge (in minutes): 45 Hospital Course - Lab Results Lab Results: Micro Results 07/31/17 03:20 Naris MRSA Culture (Admit) - Final MRSA NOT DETECTED Most Recent Lab Values WBC 9.4 10^3/ul (4.5-11.0) 08/10/17 05:30 RBC 3.44 10^6/uL (3.5-6.1) L 08/10/17 05:30 Hgb 9.2 g/dL (14.0-18.0) L 08/10/17 05:30 Hct 29.2 % (42.0-52.0) L 08/10/17 05:30 MCV 84.9 fl (80.0-105.0) 08/10/17 05:30 MCH 26.7 pg (25.0-35.0) 08/10/17 05:30 MCHC 31.5 g/dl (31.0-37.0) 08/10/17 05:30 RDW 18.2 % (11.5-14.5) H 08/10/17 05:30 Plt Count 391 10^3/uL (120.0-450.0) 08/10/17 05:30 MPV 10.7 fl (7.0-11.0) 08/10/17 05:30 Gran % 66.3 % (50.0-68.0) 08/04/17 05:30 Lymph % (Auto) 21.0 % (22.0-35.0) L 08/04/17 05:30 Cross % (Auto) 9.3 % (1.0-6.0) H 08/04/17 05:30 Eos % (Auto) 3.0 % (1.5-5.0) 08/04/17 05:30 Baso % (Auto) 0.4 % (0.0-3.0) 08/04/17 05:30 Gran # 5.45 (1.4-6.5) 08/04/17 05:30 Lymph # (Auto) 1.7 (1.2-3.4) 08/04/17 05:30 Cross # (Auto) 0.8 (0.1-0.6) H 08/04/17 05:30 Eos # (Auto) 0.3 (0.0-0.7) 08/04/17 05:30 Baso # (Auto) 0.03 K/mm3 (0.0-2.0) 08/04/17 05:30 Neutrophils % (Manual) 67 % (50.0-70.0) 08/02/17 06:30 Lymphocytes % (Manual) 20 % (22.0-35.0) L 08/02/17 06:30 Monocytes % (Manual) 6 % (1.0-6.0) 08/02/17 06:30 Eosinophils % (Manual) 2 % (0.0-3.0) 08/02/17 06:30 Metamyelocytes % 1 % 08/02/17 06:30 Myelocytes % 4 % 08/02/17 06:30 PT 12.4 SECONDS (9.4-12.5) 07/30/17 23:30 INR 1.09 (0.93-1.08) H 07/30/17 23:30 APTT 37.2 Seconds (25.1-36.5) H 07/30/17 23:30 pCO2 34 mm/Hg (35-45) L 08/03/17 00:05 pO2 81.0 mm/Hg (80-100) 08/03/17 00:05 HCO3 18.8 mmol/L (21-28) L 08/03/17 00:05 ABG pH 7.35 (7.35-7.45) 08/03/17 00:05 ABG Total CO2 19.8 mmol.L (22-28) L 08/03/17 00:05 ABG O2 Saturation 99.2 % (95-98) H 08/03/17 00:05 ABG O2 Content 10.3 ML/dl (15-23) L 08/03/17 00:05 ABG Base Excess -6.2 mmol/L (-2.0-3.0) L 08/03/17 00:05 ABG Hemoglobin 7.5 g/dL (11.7-17.4) L 08/03/17 00:05 ABG Carboxyhemoglobin 2.1 % (0.5-1.5) H 08/03/17 00:05 POC ABG HHb (Measured) 0.8 % (0-5) 08/03/17 00:05 ABG Methemoglobin 0.9 % (0.0-3.0) 08/03/17 00:05 ABG O2 Capacity 10.4 mL/dl (16-24) L 08/03/17 00:05 VBG pH 7.21 (7.32-7.43) L 07/30/17 23:30 VBG pCO2 55.0 (40-60) 07/30/17 23:30 VBG HCO3 22.0 mmol/l (21-28) 07/30/17 23:30 VBG Total CO2 23.7 mmol.L (22-28) 07/30/17 23:30 VBG O2 Sat (Calc) 79.7 % (40-65) H 07/30/17 23:30 VBG Base Excess -6.4 mmol/L (0.0-2.0) L 07/30/17 23:30 VBG Potassium 4.5 mmol/L (3.6-5.2) 07/30/17 23:30 Hgb O2 Saturation 96.2 % (95.0-98.0) 08/03/17 00:05 Sodium 136.0 mmol/L (132-148) 07/30/17 23:30 Chloride 107.0 mmol/L (98-107) 07/30/17 23:30 Glucose 243 mg/dl (75-110) H 07/30/17 23:30 Lactate 1.8 mmol/L (0.7-2.1) 07/30/17 23:30 FiO2 36.0 % 08/03/17 00:05 Sodium 145 mmol/L (132-148) 08/10/17 05:30 Potassium 5.3 mmol/L (3.6-5.0) H 08/10/17 05:30 Chloride 111 mmol/L (98-107) H 08/10/17 05:30 Carbon Dioxide 23 mmol/L (21-33) 08/10/17 05:30 Anion Gap 17 (10-20) 08/10/17 05:30 BUN 44 mg/dL (7-21) H 08/10/17 05:30 Creatinine 3.3 mg/dl (0.8-1.5) H 08/10/17 05:30 Est GFR ( Amer) 21 08/10/17 05:30 Est GFR (Non-Af Amer) 18 08/10/17 05:30 POC Glucose (mg/dL) 78 mg/dL (65-110) 08/10/17 11:11 Random Glucose 69 mg/dL (70-110) L 08/10/17 05:30 Hemoglobin A1c 5.4 % (4.2-6.5) 07/31/17 06:15 Calcium 8.8 mg/dL (8.4-10.5) 08/10/17 05:30 Phosphorus 5.4 mg/dL (2.5-4.5) H 08/05/17 06:15 Magnesium 1.9 mg/dL (1.7-2.2) 08/05/17 06:15 Iron 22 ug/dL (45-180) L 08/01/17 15:10 TIBC 271 ug/dL (261-462) 08/01/17 15:10 % Saturation 8 % (20-55) L 08/01/17 15:10 Ferritin 626.0 ng/mL 08/01/17 14:00 Total Bilirubin 0.6 mg/dL (0.2-1.3) 08/06/17 06:30 AST 42 U/L (17-59) 08/06/17 06:30 ALT 25 U/L (7-56) 08/06/17 06:30 Alkaline Phosphatase 254 U/L (38-126) H 08/06/17 06:30 Lactate Dehydrogenase 701 U/L (333-699) H 07/30/17 23:30 Total Creatine Kinase 78 U/L (35-230) 07/30/17 23:30 Troponin I 0.21 ng/mL H* D 07/31/17 11:05 NT-Pro-B Natriuret Pep 1570 pg/mL (0-450) H 07/30/17 23:30 Total Protein 6.2 g/dL (5.8-8.3) 08/06/17 06:30 Albumin 2.9 g/dL (3.0-4.8) L 08/06/17 06:30 Globulin 3.2 gm/dL 08/06/17 06:30 Albumin/Globulin Ratio 0.9 (1.1-1.8) L 08/06/17 06:30 Triglycerides 98 mg/dL (35-160) 07/31/17 06:15 Cholesterol 118 mg/dL (130-200) L 07/31/17 06:15 LDL Cholesterol Direct 58 mg/dL (0-129) 07/31/17 06:15 HDL Cholesterol 36 mg/dL (29-60) 07/31/17 06:15 Procalcitonin 0.28 NG/ML (0.19-0.49) 07/30/17 23:30 Free T4 1.43 ng/dL (0.78-2.19) 07/31/17 06:15 TSH 3rd Generation 2.23 mIU/mL (0.46-4.68) 07/31/17 06:15 Venous Blood Potassium 4.5 mmol/L (3.6-5.2) 07/30/17 23:30 Urine Opiates Screen Negative (NEGATIVE) 07/31/17 18:50 Urine Methadone Screen Negative (NEGATIVE) 07/31/17 18:50 Ur Barbiturates Screen Negative (NEGATIVE) 07/31/17 18:50 Valproic Acid 21 ug/mL (50.0-100.0) L 08/06/17 07:00 Ur Phencyclidine Scrn Negative (NEGATIVE) 07/31/17 18:50 Ur Amphetamines Screen Negative (NEGATIVE) 07/31/17 18:50 U Benzodiazepines Scrn Negative (NEGATIVE) 07/31/17 18:50 U Oth Cocaine Metabols Negative (NEGATIVE) 07/31/17 18:50 U Cannabinoids Screen Negative (NEGATIVE) 07/31/17 18:50 - Hospital Course Hospital Course: 87yo male PMHx HTN, Kidney disease? ORIF 3 weeks ago, dementia brought in by EMS after an episode of unresponsiveness and cardiac arrest. Patient was complaining of chest pain intermittently and around 10:30pm patient began to feel short of breath and "passed out." As per family, he "dropped to the floor" but they are unsure if he hit his head. They denied noticing any bowel/bladder incontinence, tremulousness, and biting of the tongue. When family called 911 they were told to start chest compressions which they did. When EMS arrived, as per family, patient was arousable and transported to [facility] ED. In the ER patient became bradypneic and pulseless. CPR started and patient was given 1 dose of epi and ROSC was achieved. Patient was then intubated and placed on the vent and sedated. As per family, at baseline patient is oriented with periods of confusion- especially at night. Since discharge from [facility] he was unable to move and had to be carried everywhere. During patient's stay at [facility] he was noted to have worsening kidney function but dialysis was advised against due to patient's age and comorbidities. Pt was admitted, sedated while intubated with work up for cardiac and neurologic etiology. Trops positive and trended up. LE U/S neg for DVT. Pt seen/evaluted by neurology with recs for MRI/MRA, EEG, sedation to provent ICP, MAP >65 and seizure ppx. Pt extubated on hospital day 2. Pt seen/ evaluted by Infectious disease & started on empiric ABx for possible infectious etiology with serial CXR monitoring. MRI brain done with findings of no acute or subacute brain infarct. Pt seen/evaluted by cardiology w/recs to hold heparin drip due to dropping H/H, monitor trops, obtain echo, recommendation for CCB if HR >130. Echo w/EF 63%, LA borderline dilated, thickened but functional AV, trace-mild AR, thickened but functional MV, trace MR, normal TV. Pt seen/evaluated by nephrology with review of previous records from [facility], diagnosis of CKD stage IV, no plans fo renal replacement therapy due to poor prognosis. Renal U/S w/non obstructive uropathy B/L, possible intrinsic medical renal disease due to findings. V/Q scan w/o ventilatory component, mild heterogenous profusion w/o segmental, geographic or lobar abnormality. Pt seen/ evaluated by psych w/recommendations for sedating, anti-psychotics for dementia and agitation. Repeat head CT w/stable appearance of ovoid area of high density w/in 3rd ventricle, moderate cerebral atrophy elsewhere, no new hemorrhage. Pt seen/evaluated by pallative care with institution for DNR/DNI. Pt continuing with behavioral agitation, at night, however stable and appears to be at baseline as per famiy. Pt stabilized, ready for discharge home with recommendations to follow up with primary care provider. Diagnoses S/p AZ x 2 & CP w/ROSC possible hemorrhagic stroke or history of CKD stage IV HX COPD Hyperkalemia Dementia Anemia Delirium Afib w/RVR MaricruzxJordan Geodon - Date & Time of H&P Date of H&P: 07/31/17 Time of H&P: 01:50 Discharge Exam - Head Exam Head Exam: ATRAUMATIC, NORMAL INSPECTION, NORMOCEPHALIC - Eye Exam Eye Exam: EOMI, Normal appearance - ENT Exam ENT Exam: Mucous Membranes Moist, Normal Exam - Neck Exam Neck exam: Full Rom, Normal Inspection - Respiratory Exam Respiratory Exam: Wheezes (mild, diffuse), NORMAL BREATHING PATTERN. absent: Accessory Muscle Use, Rales, Rhonchi, Respiratory Distress - Cardiovascular Exam Cardiovascular Exam: REGULAR RHYTHM, +S1, +S2 - GI/Abdominal Exam GI & Abdominal Exam: Normal Bowel Sounds, Soft, Unremarkable. absent: Distended , Firm, Guarding, Tenderness - Extremities Exam Extremities exam: pedal edema (bilateral, mild) - Neurological Exam Additional comments: arousable to verbal stimuli, demented - Psychiatric Exam Psychiatric exam: Normal Affect Additional comments: demented - Skin Skin Exam: Dry, Intact, Normal Color, Warm Discharge Plan - Discharge Medications Prescriptions: Alprazolam [Xanax] 0.5 mg PO BID PRN #10 tab PRN Reason: Anxiety RX: Mirtazapine [Remeron] 30 mg PO HS #30 tab RX: QUEtiapine [Seroquel] 25 mg PO AMHS #30 tab - Follow Up Plan Condition: GUARDED Disposition: HOME/ ROUTINE Instructions: Dementia (Including Alzheimer Disease), Sudden Cardiac Arrest, Heart Healthy Diet, Arrhythmias (DC), COPD Including Emphysema (DC), Anemia Caused by Low Iron, Adult (DC), Intracerebral Hemorrhage (DC), Medical Care During Advanced Illness, Tips for Caregivers of People With Alzheimer Disease, Delirium (Confusion) (DC), How to Prepare Your Home for a Person With a Disability, Chronic Kidney Disease (DC), Palliative Care, Chest Pain (ED), Sepsis (ED) Additional Instructions: Please follow up with your primary care provider within 1-2 weeks after discharge. Please take all medications as prescribed. Referrals: PCP,NO [Primary Care Provider] - [facility] [Outside] Clinical Quality Measures - CQM - Stroke Antithrombotic Prescribed: Yes Anticoagulation Prescribed for Atrial Flutter, Atrial Fibrillation and History of:: Yes - CQM - VTE Did patient receive overlap therapy during hosptialization?: Yes If yes, what was given to the patient?: heparin Is patient being discharged on overlap therapy?: No If no, please select a reason why:: Use of Anticoagulants - CQM - Heart Failure Ejection Fraction: 40 % or Greater Left Ventricular Function to be assessed after discharge: No [id number] Inhibitor Prescribed: No Contraindication/Reason for not providing: not indicated AnticoagulationTherapy for Atrial Fibrillation/Atrialflutter: Yes Cardiac Resynchronization Therapy Prescribed: No Contraindication/Reason for not providing: not a candidate Will be discharged to: Home Follow Up Date (must be within 7 days from discharge): 08/17/17 Follow Up Time: 09:00 <Bill Tristan - Last Filed: 08/10/17 14:32> Provider - Provider Date of Admission: 07/31/17 01:43 Attending physician: Bill Tristan MD Primary care physician: NO PRIMARY CARE PROVIDER Hospital Course - Lab Results Lab Results: Micro Results 07/31/17 03:20 Naris MRSA Culture (Admit) - Final MRSA NOT DETECTED Most Recent Lab Values WBC 9.4 10^3/ul (4.5-11.0) 08/10/17 05:30 RBC 3.44 10^6/uL (3.5-6.1) L 08/10/17 05:30 Hgb 9.2 g/dL (14.0-18.0) L 08/10/17 05:30 Hct 29.2 % (42.0-52.0) L 08/10/17 05:30 MCV 84.9 fl (80.0-105.0) 08/10/17 05:30 MCH 26.7 pg (25.0-35.0) 08/10/17 05:30 MCHC 31.5 g/dl (31.0-37.0) 08/10/17 05:30 RDW 18.2 % (11.5-14.5) H 08/10/17 05:30 Plt Count 391 10^3/uL (120.0-450.0) 08/10/17 05:30 MPV 10.7 fl (7.0-11.0) 08/10/17 05:30 Gran % 66.3 % (50.0-68.0) 08/04/17 05:30 Lymph % (Auto) 21.0 % (22.0-35.0) L 08/04/17 05:30 Cross % (Auto) 9.3 % (1.0-6.0) H 08/04/17 05:30 Eos % (Auto) 3.0 % (1.5-5.0) 08/04/17 05:30 Baso % (Auto) 0.4 % (0.0-3.0) 08/04/17 05:30 Gran # 5.45 (1.4-6.5) 08/04/17 05:30 Lymph # (Auto) 1.7 (1.2-3.4) 08/04/17 05:30 Cross # (Auto) 0.8 (0.1-0.6) H 08/04/17 05:30 Eos # (Auto) 0.3 (0.0-0.7) 08/04/17 05:30 Baso # (Auto) 0.03 K/mm3 (0.0-2.0) 08/04/17 05:30 Neutrophils % (Manual) 67 % (50.0-70.0) 08/02/17 06:30 Lymphocytes % (Manual) 20 % (22.0-35.0) L 08/02/17 06:30 Monocytes % (Manual) 6 % (1.0-6.0) 08/02/17 06:30 Eosinophils % (Manual) 2 % (0.0-3.0) 08/02/17 06:30 Metamyelocytes % 1 % 08/02/17 06:30 Myelocytes % 4 % 08/02/17 06:30 PT 12.4 SECONDS (9.4-12.5) 07/30/17 23:30 INR 1.09 (0.93-1.08) H 07/30/17 23:30 APTT 37.2 Seconds (25.1-36.5) H 07/30/17 23:30 pCO2 34 mm/Hg (35-45) L 08/03/17 00:05 pO2 81.0 mm/Hg (80-100) 08/03/17 00:05 HCO3 18.8 mmol/L (21-28) L 08/03/17 00:05 ABG pH 7.35 (7.35-7.45) 08/03/17 00:05 ABG Total CO2 19.8 mmol.L (22-28) L 08/03/17 00:05 ABG O2 Saturation 99.2 % (95-98) H 08/03/17 00:05 ABG O2 Content 10.3 ML/dl (15-23) L 08/03/17 00:05 ABG Base Excess -6.2 mmol/L (-2.0-3.0) L 08/03/17 00:05 ABG Hemoglobin 7.5 g/dL (11.7-17.4) L 08/03/17 00:05 ABG Carboxyhemoglobin 2.1 % (0.5-1.5) H 08/03/17 00:05 POC ABG HHb (Measured) 0.8 % (0-5) 08/03/17 00:05 ABG Methemoglobin 0.9 % (0.0-3.0) 08/03/17 00:05 ABG O2 Capacity 10.4 mL/dl (16-24) L 08/03/17 00:05 VBG pH 7.21 (7.32-7.43) L 07/30/17 23:30 VBG pCO2 55.0 (40-60) 07/30/17 23:30 VBG HCO3 22.0 mmol/l (21-28) 07/30/17 23:30 VBG Total CO2 23.7 mmol.L (22-28) 07/30/17 23:30 VBG O2 Sat (Calc) 79.7 % (40-65) H 07/30/17 23:30 VBG Base Excess -6.4 mmol/L (0.0-2.0) L 07/30/17 23:30 VBG Potassium 4.5 mmol/L (3.6-5.2) 07/30/17 23:30 Hgb O2 Saturation 96.2 % (95.0-98.0) 08/03/17 00:05 Sodium 136.0 mmol/L (132-148) 07/30/17 23:30 Chloride 107.0 mmol/L (98-107) 07/30/17 23:30 Glucose 243 mg/dl (75-110) H 07/30/17 23:30 Lactate 1.8 mmol/L (0.7-2.1) 07/30/17 23:30 FiO2 36.0 % 08/03/17 00:05 Sodium 145 mmol/L (132-148) 08/10/17 05:30 Potassium 5.3 mmol/L (3.6-5.0) H 08/10/17 05:30 Chloride 111 mmol/L (98-107) H 08/10/17 05:30 Carbon Dioxide 23 mmol/L (21-33) 08/10/17 05:30 Anion Gap 17 (10-20) 08/10/17 05:30 BUN 44 mg/dL (7-21) H 08/10/17 05:30 Creatinine 3.3 mg/dl (0.8-1.5) H 08/10/17 05:30 Est GFR ( Amer) 08/10/17 05:30 Est GFR (Non-Af Amer) 18 08/10/17 05:30 POC Glucose (mg/dL) 78 mg/dL (65-110) 08/10/17 11:11 Random Glucose 69 mg/dL (70-110) L 08/10/17 05:30 Hemoglobin A1c 5.4 % (4.2-6.5) 07/31/17 06:15 Calcium 8.8 mg/dL (8.4-10.5) 08/10/17 05:30 Phosphorus 5.4 mg/dL (2.5-4.5) H 08/05/17 06:15 Magnesium 1.9 mg/dL (1.7-2.2) 08/05/17 06:15 Iron 22 ug/dL (45-180) L 08/01/17 15:10 TIBC 271 ug/dL (261-462) 08/01/17 15:10 % Saturation 8 % (20-55) L 08/01/17 15:10 Ferritin 626.0 ng/mL 08/01/17 14:00 Total Bilirubin 0.6 mg/dL (0.2-1.3) 08/06/17 06:30 AST 42 U/L (17-59) 08/06/17 06:30 ALT 25 U/L (7-56) 08/06/17 06:30 Alkaline Phosphatase 254 U/L (38-126) H 08/06/17 06:30 Lactate Dehydrogenase 701 U/L (333-699) H 07/30/17 23:30 Total Creatine Kinase 78 U/L (35-230) 07/30/17 23:30 Troponin I 0.21 ng/mL H* D 07/31/17 11:05 NT-Pro-B Natriuret Pep 1570 pg/mL (0-450) H 07/30/17 23:30 Total Protein 6.2 g/dL (5.8-8.3) 08/06/17 06:30 Albumin 2.9 g/dL (3.0-4.8) L 08/06/17 06:30 Globulin 3.2 gm/dL 08/06/17 06:30 Albumin/Globulin Ratio 0.9 (1.1-1.8) L 08/06/17 06:30 Triglycerides 98 mg/dL (35-160) 07/31/17 06:15 Cholesterol 118 mg/dL (130-200) L 07/31/17 06:15 LDL Cholesterol Direct 58 mg/dL (0-129) 07/31/17 06:15 HDL Cholesterol 36 mg/dL (29-60) 07/31/17 06:15 Procalcitonin 0.28 NG/ML (0.19-0.49) 07/30/17 23:30 Free T4 1.43 ng/dL (0.78-2.19) 07/31/17 06:15 TSH 3rd Generation 2.23 mIU/mL (0.46-4.68) 07/31/17 06:15 Venous Blood Potassium 4.5 mmol/L (3.6-5.2) 07/30/17 23:30 Urine Opiates Screen Negative (NEGATIVE) 07/31/17 18:50 Urine Methadone Screen Negative (NEGATIVE) 07/31/17 18:50 Ur Barbiturates Screen Negative (NEGATIVE) 07/31/17 18:50 Valproic Acid 21 ug/mL (50.0-100.0) L 08/06/17 07:00 Ur Phencyclidine Scrn Negative (NEGATIVE) 07/31/17 18:50 Ur Amphetamines Screen Negative (NEGATIVE) 07/31/17 18:50 U Benzodiazepines Scrn Negative (NEGATIVE) 07/31/17 18:50 U Oth Cocaine Metabols Negative (NEGATIVE) 07/31/17 18:50 U Cannabinoids Screen Negative (NEGATIVE) 07/31/17 18:50 Attending/Attestation - Attestation I have personally seen and examined this patient.: Yes I have fully participated in the care of the patient.: Yes I have reviewed all pertinent clinical information, including history, physical exam and plan: Yes Notes (Text): 08/10/17 14:29 87 year old male with past medical history of CKD and possible dementia who was admitted s/p cardiac arrest with brief CPR. He was seen by neurology, nephrology and psychiatry. He was seen by palliative care and physical therapy. He has episodes of agitation at night and refusing medications, however with family he is calm and cooperative. Patient is discharged home with family support. Family is at bedside and questions were answered. Follow up with pmd to monitor labs (cr/k). Bill Tristan MD Hospitalist.
[2017-08-10 16:33] VITALS: BP 118/52; PULSE 62; TEMP 98.4; O2SAT 95
--- NOTE | 2017-08-10 17:40 | PN ---
DATE: 08/10/2017 SUBJECTIVE: The patient was followed up today. The patient still has episodes of restless behavior majority of the time when he does not understand Swedish and when nursing staff approaching him. When the patient is with the family, the patient is calm and cooperative. This marketing writer was adjusting the patient's medications. The patient improved on increased dose of Xanax as well as Remeron as well as Seroquel. The patient will be discharged with palliative care back to his family. The patient is DNR and DNI, comfort measures only. Hemoglobin is 9.2, hematocrit 29. Coagulation reviewed. Blood gas reviewed. Chemistry reviewed. Potassium 5.3 and chloride 111. Toxicology reviewed. MENTAL STATUS EXAMINATION: The patient was calm and cooperative during this marketing writer's assessment, but very confused, was not able to provide any of the history. Family is next to the patient. IMPRESSION: Delirium, questionable dementia. PLAN: The patient should continue psychotropic medication, Xanax as well as Remeron as well as Seroquel, palliative care. The patient will be discharged under his family supervision, which seems to be a good plan because the patient is much calmer with his family and understands their language. This marketing writer will sign off. Should you have any questions, give me a call back. Thank you very much for letting me to participate in care of your patient. Michelle Braga MD
--- NOTE | 2017-08-10 19:33 | CP.PCM.PN ---
Subjective - Date & Time of Evaluation Date of Evaluation: 08/10/17 Time of Evaluation: 15:05 - Subjective Subjective: No fevers, not in distress. Objective - Vital Signs/Intake and Output Vital Signs (last 24 hours): Temp Pulse Resp BP Pulse Ox 97.4 F L 63 18 120/50 L 94 L 08/10/17 07:49 08/10/17 07:49 08/10/17 07:49 08/10/17 07:49 08/10/17 07:49 Intake and Output: 08/10/17 08/10/17 06:59 18:59 Intake Total 360 Balance 360 - Medications Medications: Current Medications Acetaminophen (Tylenol 325mg Tab) 650 mg PO Q4 PRN PRN Reason: Fever >100.4 F Albuterol/Ipratropium (Duoneb 3 Mg/0.5 Mg (3 Ml) Ud) 3 ml IH [id number] [facility] Last Admin: 08/10/17 07:47 Dose: 3 ml Alprazolam (Xanax) 0.25 mg PO TID JAIMIE PRN Reason: Protocol Stop: 08/13/17 14:01 Last Admin: 08/10/17 08:59 Dose: 0.25 mg Doxercalciferol (Hectorol) 0.5 mcg PO DAILY [facility] Last Admin: 08/10/17 08:59 Dose: 0.5 mcg Heparin Sodium (Porcine) (Heparin) 5,000 units SC Q12 JAIMIE PRN Reason: Protocol Last Admin: 08/10/17 08:59 Dose: 5,000 units Valproate Sodium 500 mg/ (Sodium Chloride) 105 mls @ 100 mls/hr IVPB Q12 [facility] Last Admin: 08/09/17 22:21 Dose: 100 mls/hr Dextrose (Dextrose 5% In Water 1000 Ml) 1,000 mls @ 60 mls/hr IV .[id number] [facility] Last Admin: 08/09/17 03:08 Dose: 60 mls/hr Mirtazapine (Remeron) 15 mg PO HS [facility] Last Admin: 08/09/17 22:22 Dose: Not Given Pantoprazole Sodium (Protonix Inj) 40 mg IVP DAILY [facility] Last Admin: 08/10/17 08:59 Dose: 40 mg Quetiapine Fumarate (Seroquel) 12.5 mg PO HS JAIMIE PRN Reason: Protocol Last Admin: 08/09/17 22:22 Dose: Not Given Verapamil HCl (Verapamil Inj) 2.5 mg IVP Q6H PRN PRN Reason: for heart rate >130 Ziprasidone (Geodon Inj) 10 mg IM Q12 PRN; Protocol PRN Reason: agitation/aggression/psychosis - Labs Labs: 08/10/17 05:30 08/10/17 05:30 PT 12.4 SECONDS (9.4-12.5) 07/30/17 23:30 INR 1.09 (0.93-1.08) H 07/30/17 23:30 APTT 37.2 Seconds (25.1-36.5) H 07/30/17 23:30 - Constitutional Appears: Chronically Ill - Head Exam Head Exam: NORMAL INSPECTION - ENT Exam ENT Exam: Mucous Membranes Moist - Neck Exam Neck Exam: absent: Meningismus - Respiratory Exam Respiratory Exam: Decreased Breath Sounds - Cardiovascular Exam Cardiovascular Exam: +S1, +S2 - GI/Abdominal Exam GI & Abdominal Exam: Soft. absent: Tenderness Assessment and Plan - Assessment and Plan (Free Text) Plan: Assessment S/P systemic inflammatory response syndrome with ventilator-dependent respiratory failure after cardiorespiratory arrest, consider due to possible subarachnoid hemorrhage / CVA R/O acute myocardial infarction chronic renal failure HTN dementia significant smoking history S/P ORIF Plan will continue to monitor the patient off antibiotics since he is at risk for nosocomial infections
== END 2017-08-10 21:15 | disposition home or self-care (01) | DRG 280 ==
LOC: ED 23:25 → ERH 07-31 01:43 → ICU 07-31 03:07 → 2RSO 08-02 16:46 → 3RNO 08-05 14:00
PROVIDERS: ADMIT Hospitalist; ATTEND Internal Medicine
PROC: 5A1935Z Respiratory Ventilation, Less than 24 Consecutive Hours (ICD-10-PCS; principal; 2017-07-31)
PROC: 0BH17EZ Insertion of Endotracheal Airway into Trachea, Via Natural or Artificial Opening (ICD-10-PCS; 2017-07-31)
PROC: 5A12012 Performance of Cardiac Output, Single, Manual (ICD-10-PCS; 2017-07-31)
PROC: 05HM33Z Insertion of Infusion Device into Right Internal Jugular Vein, Percutaneous Approach (ICD-10-PCS; 2017-07-31)
PROC: 3E033XZ Introduction of Vasopressor into Peripheral Vein, Percutaneous Approach (ICD-10-PCS; 2017-07-31)
PROC: B543ZZA Ultrasonography of Right Jugular Veins, Guidance (ICD-10-PCS; 2017-07-31)
DX: I21.9 Acute myocardial infarction, unspecified (principal); I46.9 Cardiac arrest, cause unspecified; J96.91 Respiratory failure, unspecified with hypoxia; R65.11 Systemic inflammatory response syndrome (SIRS) of non-infectious origin with acute organ dysfunction; I62.9 Nontraumatic intracranial hemorrhage, unspecified; N17.9 Acute kidney failure, unspecified; N18.4 Chronic kidney disease, stage 4 (severe); E87.0 Hyperosmolality and hypernatremia; E44.0 Moderate protein-calorie malnutrition; N25.81 Secondary hyperparathyroidism of renal origin; I12.9 Hypertensive chronic kidney disease with stage 1 through stage 4 chronic kidney disease, or unspecified chronic kidney disease; I48.0 Paroxysmal atrial fibrillation; D63.1 Anemia in chronic kidney disease; E77.8 Other disorders of glycoprotein metabolism; E88.09 Other disorders of plasma-protein metabolism, not elsewhere classified; R68.0 Hypothermia, not associated with low environmental temperature; F03.90 Unspecified dementia, unspecified severity, without behavioral disturbance, psychotic disturbance, mood disturbance, and anxiety; J44.9 Chronic obstructive pulmonary disease, unspecified; E83.51 Hypocalcemia; F17.210 Nicotine dependence, cigarettes, uncomplicated; R29.720 NIHSS score 20; Z66 Do not resuscitate; Z51.5 Encounter for palliative care; E87.5 Hyperkalemia; E83.39 Other disorders of phosphorus metabolism; I08.0 Rheumatic disorders of both mitral and aortic valves; R13.10 Dysphagia, unspecified; G93.0 Cerebral cysts; Z78.1 Physical restraint status; Z86.59 Personal history of other mental and behavioral disorders; S72.001D Fracture of unspecified part of neck of right femur, subsequent encounter for closed fracture with routine healing